=== PATIENT | female | born 1955 | race Native Hawaiian/Other Pacific Islander ===

== ENCOUNTER → 2016-10-01 | Outpatient (CLI) | payer BC ==
[2016-10-01 08:50] VITALS: BP 150/92; PULSE 79; TEMP 97.9; BMI 41.0
[2016-10-01 10:00] LABS: CH 31.8; CHCM 34.2; HCT 43.7 % (34.0-46.0); HDW 2.95; MCHC 34.2 g/dL (31.0-37.0); MCV 93.4 fL (80.0-100.0); Mean Platelet Volume 7.6; RBC 4.68 m/uL (3.80-5.40); RDW 13.1 % (11.5-15.5); WBC 5.2 k/uL (3.8-10.6)
[2016-10-01 11:10] LABS: ALT 43 U/L (9-52); AST 29 U/L (14-36); Alkaline Phosphatase 117 U/L (38-126); Anion Gap 13 mmol/L; Blood Urea Nitrogen 16 mg/dL (7-17); Calcium 9.5 mg/dL (8.4-10.2); Carbon Dioxide 23 mmol/L (22-30); Chloride 108 mmol/L (98-107); Cholesterol 155 mg/dL (<200); Glucose 100 mg/dL (74-99); HDL Cholesterol 54 mg/dL (40-60); Iron 114 ug/dL (37-170); Non-African American GFR(MDRD) >60 (>60 ml/min/1.73 sqM); Potassium 4.4 mmol/L (3.5-5.1); Sodium 144 mmol/L (137-145); Total Bilirubin 0.7 mg/dL (0.2-1.3); Triglycerides 228 mg/dL (<150)
[2016-10-01 11:19] LABS: % Iron Saturation 32.9 % (20-50); Total Iron Binding Capacity 346 ug/dL (265-497)
--- NOTE | 2016-10-01 12:16 | P.GSHP ---
History of Present Illness H&P Date: 10/01/16 Chief Complaint: Morbid obesity BMI 41.1 61 years old female presents for bariatric surgery consultation. Patient had tried multiple weight loss programs and exercise regimens. She lost 25 pounds but is unable to maintain sustained weight loss. Last colonoscopy less than 10 years ago and was normal as per patient Her comorbid conditions include: 1. Benign essential hypertension- she discontinued hydrochlorothiazide because of insurance noncoverage 2. History of stage III breast cancer status post mastectomy with TRAM reconstruction in 1994, status post chemotherapy and radiation - Recent MRI normal. Follows up with Dr. Magdiel Gooden 3. Hyperlipidemia 4. GERD - takes PPIs on and off for reflux symptoms 5. Known sigmoid diverticulosis with few episodes of diverticulitis - Review of Systems Comment: Constitutional: Denies fever, weight loss or loss of appetite HEENT: No difficulty in vision or hearing. Denies dysphagia. Cardiovascular: Denies chest pain, palpitations, dizziness, shortness of breath. Respiratory: No cough or shortness of breath Gastrointestinal: She has gastroesophageal reflux disease and sigmoid diverticulosis Integumentary: No ulcers or breakdown Genitourinary: No urinary incontinence, hematuria or dysuria Neurologic: No seizures, denies weakness in upper or lower extremities Musculoskeletal: Occasional knee pain. Psychiatry: No history of depression, no suicidal ideation, no anxiety or psychosis ROS unobtainable: Reports: due to endotracheal tube Past Medical History Past Medical History: Cancer, Hyperlipidemia, Hypertension Additional Past Medical History / Comment(s): buldging discs in back, breast cancer 1994 chemo and radiation,currently having burning sensation/feeling in stomachLEFT BREAST MASTECTOMY 95 History of Any Multi-Drug Resistant Organisms: None Reported Past Surgical History: Breast Surgery, Hysterectomy, Orthopedic Surgery Additional Past Surgical History / Comment(s): lt mastectomy,reconstruction nolan breast. Past Anesthesia/Blood Transfusion Reactions: No Reported Reaction Past Psychological History: No Psychological Hx Reported Smoking Status: Never smoker Past Alcohol Use History: Rare Past Drug Use History: None Reported - Past Family History Mother Family Medical History: Cancer Additional Family Medical History / Comment(s): breast Father Family Medical History: Cancer Additional Family Medical History / Comment(s): skin and liver Medications and Allergies Home Medications Medication Instructions Recorded Confirmed Type Levothyroxine Sodium [Synthroid] 75 mcg PO QAM 11/17/13 10/01/16 History Multivitamins, Thera [Multivitamin] 1 each PO DAILY 11/17/13 10/01/16 History Atorvastatin [Lipitor] 20 mg PO DAILY 09/19/14 10/01/16 History Allergies Allergy/AdvReac Type Severity Reaction Status Date / Time No Known Allergies Allergy Verified 10/01/16 08:50 Surgical - Exam Vital Signs Temp Pulse BP 97.9 F 79 150/92 10/01/16 08:46 10/01/16 08:46 10/01/16 08:46 HEENT: No pallor, no icterus, no thyroid enlargement, no cervical lymphadenopathy. Chest: Bilateral equal breath sounds present. No wheezes, no crackles. Cardiovascular: Regular rate and rhythm. Abdomen: Soft, nontender, nondistended. Transverse lower abdominal incision insistent with TRAM reconstruction Integumentary: No active ulcers or discharge. Neurologic: Cranial nerves II-XII intact. Strength upper and lower extremities 5/5. No focal neurologic deficits. Gait is normal. Psychiatric: No anxiety or psychosis. No suicidal thoughts. . Results - Labs 10/01/16 09:29 Assessment and Plan (1) Morbid obesity with BMI of 40.0-44.9, adult Status: Acute (2) Morbid obesity due to excess calories Status: Acute (3) Hypertension Status: Acute (4) Hyperlipidemia Status: Acute Plan: 1. A detailed discussion was held about the risks, benefits and potential complications of bariatric surgery. I have concerns about her TRAM flap and need to review prior operative reports 2. Referral given to Sai Bingham for exercise and weight loss program.She was recommended to drink protein shakes for snacks. I discussed about reducing the portion size, limiting refined carbohydrates and sugar and increase protein intake 3. Patient scheduled for esophagogastroduodenoscopy with antral biopsy 4. Baseline lab work ordered. 12-lead EKG ordered 5. Transport Coordinator's recommendations and clearance awaited 6. Psychiatrist/ psychologist's recommendations pending 7. CT scan abd/pelvis from 2013 reviewed. No rectus muscle along right side consistent with TRAM flap surgery 8. Sleep study
[2016-10-01 12:18] LABS: Vitamin B12 491 pg/mL (239-931)
== END | disposition home or self-care (01) ==
LOC: BARWHC3 08:03
PROVIDERS: ATTEND Surgery
DX: E66.01 Morbid (severe) obesity due to excess calories (principal); I10 Essential (primary) hypertension; E78.5 Hyperlipidemia, unspecified; D50.8 Other iron deficiency anemias; E03.9 Hypothyroidism, unspecified; I11.9 Hypertensive heart disease without heart failure; Z68.41 Body mass index [BMI] 40.0-44.9, adult; Z79.899 Other long term (current) drug therapy
CPT/HCPCS: 36415; 80053; 80061; 82306; 82607; 82728; 82746; 83540; 83550; 84425; 84443; 85027; 99211

== ENCOUNTER 2016-10-08 11:36 | Day surgery (SDC) | payer BC ==
[2016-10-02 14:18] VITALS: BMI 41.0
[~2016-10-08 11:36] MED LIST: LACTATED RINGERS 1,000 ML IV SCH; LIDOCAINE 1% 20 ML VIAL (10MG/ML) FOR IV START INTRADERMA PRN
[2016-10-08 12:18] VITALS: RESP 16; TEMP 97
[2016-10-08] MEDS ORDERED: GLYCOPYRROLATE 0.2 MG/ML 2 ML VIAL ONE (12:18)
[2016-10-08] MEDS ORDERED: LIDOCAINE 1% INJ 10MG/ML (20 ML MDV) ONE (12:18)
[2016-10-08] MEDS ORDERED: PROPOFOL 10 MG/ML 20 ML VIAL IV ONE (12:18)
[2016-10-08] MEDS ORDERED: KETAMINE 10 MG/ML 20 ML VIAL ONE (12:18)
--- NOTE | 2016-10-08 12:33 | P.OP ---
Date of Procedure: 10/08/16 Preoperative Diagnosis: Morbid obesity BMI 41 Gastroesophageal reflux disease History of left breast cancer status post mastectomy and TRAM reconstruction Postoperative Diagnosis: Same Procedure(s) Performed: EGD with antral biopsy Anesthesia: MAC Surgeon: Urmila Beckett Pathology: other Condition: stable Disposition: PACU Indications for Procedure: 61 years old female presenting for bariatric surgery evaluation. She has history of gastroesophageal reflux disease. Informed consent obtained and patient opted to undergo EGD with possible biopsy Description of Procedure: A timeout was performed to verify the correct patient and correct procedure. Patient was on continuous vitals and pulse ox monitoring throughout the procedure. She was placed in lateral decubitus position and an oral bite block was inserted. A well-lubricated Olympus upper endoscope was passed orally. The esophagus was intubated without difficulty. The vocal cords were visualised and protected at all times. The endoscope was passed beyond the pylorus into the first and second portion of the duodenum. No normality is noted in the duodenum mucosa. Two random biopsies were taken from the gastric antrum using cold biopsy forceps. The scope was then retroflexed. No hiatal hernia. No mass, active ulcer or bleeding stigmata noted within the gastric lumen. The GE junction is measured at 36 cm from the incisors . No evidence of reflux esophagitis. The endoscope was gradually withdrawn. No abnormality identified in the esophagus. Patient tolerated the procedure well and was taken to post anesthesia care unit in stable condition. FINAL DIAGNOSIS: 1. Normal EGD SPECIMEN: Antral biopsy Final Pathologic Diagnosis GASTRIC ANTRUM, BIOPSY: MINIMAL CHRONIC GASTRITIS. IMMUNOPEROXIDASE STAIN NEGATIVE FOR HELICOBACTER PYLORI ORGANISMS (CONTROLS APPROPRIATE).
[2016-10-08 13:15] VITALS: BP 142/82; PULSE 77
== END 2016-10-08 13:27 | disposition home or self-care (01) ==
LOC: ORWHC2ENDO 11:36
PROVIDERS: ATTEND Surgery
DX: K21.9 Gastro-esophageal reflux disease without esophagitis (principal); K29.50 Unspecified chronic gastritis without bleeding; Z01.818 Encounter for other preprocedural examination; E66.01 Morbid (severe) obesity due to excess calories; Z68.41 Body mass index [BMI] 40.0-44.9, adult; Z85.3 Personal history of malignant neoplasm of breast; I10 Essential (primary) hypertension; E78.5 Hyperlipidemia, unspecified; E07.9 Disorder of thyroid, unspecified; Z79.899 Other long term (current) drug therapy
CPT/HCPCS: 88305; 88342; 43239; J2001; J2704

== ENCOUNTER → 2016-12-05 | Outpatient (CLI) | payer BC ==
--- NOTE | 2016-12-05 11:10 | MM ---
Reason for exam: additional evaluation requested from prior study. Last mammogram was performed 1 year and 1 month ago. History: Patient is postmenopausal, has history of breast cancer at age 40, and history of other cancer. Family history of breast cancer in mother at age 63 and breast cancer in paternal aunt at age 63. Benign right mammotome panel of the right breast, March 06, 2010. Right US Cyst Aspiration of the right breast, January 08, 2005. Reduction of the right breast, 2002. TRAM Reconstruction of the left breast, 2001. Reduction of the right breast, 1995. Mastectomy of the left breast, 1995. Chemotherapy. Radiation therapy of the left breast. Took hormonal contraceptives for 15 years. Took estrogen for 1 year beginning at age 54. Physical Findings: Nurse did not find any significant physical abnormalities on exam. MG 3D Diag Mammo W/Cad RT CC, MLO, and XCCL view(s) were taken of the right breast. Prior study comparison: November 12, 2015, right breast MG 3d diag mammo w/cad RT. May 11, 2015, right breast MG 3d diag mammo w/cad RT. There are scattered fibroglandular densities. No significant new findings when compared with previous films. These results were verbally communicated with the patient and result sheet given to the patient on 12/05/16. ASSESSMENT: Benign, BI-RAD 2 RECOMMENDATION: Follow-up diagnostic mammogram of the right breast in 1 year.
== END | disposition home or self-care (01) ==
LOC: RADMAMWWP 09:48
PROVIDERS: ATTEND Family Medicine
DX: Z08 Encounter for follow-up examination after completed treatment for malignant neoplasm (principal); Z85.3 Personal history of malignant neoplasm of breast
CPT/HCPCS: G0206; G0279

== ENCOUNTER → 2017-02-05 | Outpatient (CLI) | payer BC ==
--- NOTE | 2017-02-05 15:49 | BD ---
EXAMINATION TYPE: MG DEXA axial skeleton. DATE OF EXAM: 02/05/2017 COMPARISON: 01.10.2015 CLINICAL HISTORY: Z78.0 MENOPAUSAL STATE Height: 60 Weight: 203 FRAX RISK QUESTIONS: Alcohol (3 or more units per day): NO Family History (Parent hip fracture): NONE KNOWN Glucocorticoids (More than 3mos): NO (Ex: prednisone, prednisolone, methylprednisolone, dexamethasone, and hydrocortisone). History of Fracture in Adulthood: NO Secondary Osteoporosis: NO 1. Type 1 Diabetes: NO 2. Hyperthyroidism: NO 3. Menopause before 45: NO 4. Malnutrition: NO 5. Chronic liver disease: NO Rheumatoid Arthritis: NO Current Tobacco Use: NO RISK FACTORS HISTORY OF: Family History of Osteoporosis: NONE KNOWN Active: YES Diet low in dairy products/other sources of calcium: NO Postmenopausal woman: 55 Lost more than 2 inches in height since high school: NO Hyperparathyroidism: NO Adrenal Insufficiency: NO MEDICATIONS: Thyroid Medications: YES, SYNTHROID, GENARIC How Lon+ YRS Additional Medications: BP MEDS, XANAX, HX OF CHEMO AND RADIATION, VIT D, STATIN FOR CHOLESTEROL, NEX IUM BUT STOPPED 2 WKS AGO, Additional History: BREAST CANCER, LT ....1997 EXAM MEASUREMENTS: Bone mineral densitometry was performed using the [employer] System. Bone mineral density as measured about the Lumbar spine is: ----- L1-L4(G/cm2): 1.229 T Score Values are as follows: ----- L1: -0.4 ----- L2: 0.8 ----- L3: 0.4 ----- L4: 0.5 ----- L1-L4: 0.4 Bone mineral density has: Decreased -2.5% since study of: 01.10.2015 Bone mineral density about the R hip (g/cm2): 1.039 Bone mineral density about the L hip (g/cm2): 1.110 T Score values are as follows: -----R Neck: -1.0 -----L Neck: -0.6 -----R Total: 0.2 -----L Total: 0.8 Bone mineral density has: Increased 0.1% since study of: 01.10.2015 FRAX%'S: THERE IS A 6.9% CHANCE FOR A MAJOR OSTEOPOROTIC FX AND A 0.4% FOR HIP FX....PROBABILITY IN 10 YRS TIME IMPRESSION: Normal (Values between +1 and -1 indicate normal bone mass). Consider repeating this study in 5 year s or sooner if there is some new clinical indication FOR BOTH OF HER HIPS AND LUMBAR SPINE. NOTE: T-SCORE=SD OF THE YOUNG ADULT MEAN.
== END | disposition home or self-care (01) ==
LOC: RADBDWWP 14:10
PROVIDERS: ATTEND Family Medicine
DX: Z12.31 Encounter for screening mammogram for malignant neoplasm of breast (principal); Z78.0 Asymptomatic menopausal state
CPT/HCPCS: 77080

== ENCOUNTER → 2017-05-08 | Outpatient (CLI) | payer BC ==
--- NOTE | 2017-05-08 17:08 | CT ---
EXAMINATION TYPE: CT abdomen pelvis w con DATE OF EXAM: 05/08/2017 COMPARISON: 11/18/2013 HISTORY: Abdominal pain CT DLP: 1445.6 mGycm Automated exposure control for dose reduction was used. TECHNIQUE: Helical acquisition of images was performed from the lung bases through the pelvis. CONTRAST: Performed with Oral Contrast and with IV Contrast, patient injected with 100 mL of Omnipaque 300. FINDINGS: Lung bases are clear. There is no pleural effusion. Liver spleen pancreas gallbladder appear normal. Bile ducts are not dilated. There is no adrenal mass. Kidneys show satisfactory contrast opacification. There is no hydronephrosi s. There is no retroperitoneal adenopathy. There is no ascites. Appendix appears normal. There are mu ltiple diverticula in the sigmoid colon. Bladder distends smoothly. There is no sign of a pelvic mass . I see no intestinal wall thickening. There are no dilated loops. I see no bony destructive process. IMPRESSION: MILD SIGMOID DIVERTICULOSIS. NORMAL APPENDIX. NO SIGN OF ACUTE ABDOMEN AND PELVIS. THERE IS CLEARING OF THE INFLAMMATORY CHANGES IN THE SIGMOID COLON COMPARED TO OLD EXAM.
== END | disposition home or self-care (01) ==
LOC: RADCTMAIN 16:17
PROVIDERS: ATTEND Surgery
DX: K57.30 Diverticulosis of large intestine without perforation or abscess without bleeding (principal)
CPT/HCPCS: 74177; Q9967

== ENCOUNTER 2017-09-15 06:45 | Day surgery (SDC) | payer BC ==
[2017-09-10 15:09] VITALS: BMI 38.5
[2017-09-15 07:19] VITALS: TEMP 96.1
[2017-09-15] MEDS ORDERED: LACTATED RINGERS 1,000 ML IV ONE (07:26)
[2017-09-15] MEDS ORDERED: LIDOCAINE 1% INJ 10MG/ML (20 ML MDV) ONE (07:38)
[2017-09-15] MEDS ORDERED: PROPOFOL 10 MG/ML 20 ML VIAL IV ONE (07:38)
--- NOTE | 2017-09-15 08:22 | P.PCN ---
Date of Procedure: 09/15/17 Preoperative Diagnosis: Change in caliber of stool, blood-tinged stool Postoperative Diagnosis: Diverticuli, internal hemorrhoids, polyp at splenic flexure, polyp in right colon distal near hepatic flexure Procedure(s) Performed: Colonoscopy, polypectomy 2 Anesthesia: MAC Surgeon: Amrita Moser Estimated Blood Loss (ml): 0 IV fluids (ml): 400 Pathology: other (2 polyps 1 from the splenic flexure area and one from the distal right colon hepatic flexure area) Condition: stable Disposition: PACU Indications for Procedure: Change in stool caliber and blood-tinged stool Operative Findings: Diverticuli, polyps 2 right colon and splenic flexure area internal hemorrhoids Description of Procedure: Patient was taken to the endoscopy suite and placed in the left lateral decubitus position. Sedation was administered. Rectal exam was performed. Patient was noted to have good sphincter tone no masses. Colonoscope was passed through the anus into the rectum. Was passed through the sigmoid colon up to splenic flexure transverse colon hepatic flexure right colon down to the area of the cecum. This patient circumferential observation mucosa did not reveal any lesions of concern in the cecum. As the scope was withdrawn small polypoid lesion was noted in the right colon which was removed with snare polypectomy and retrieved. Upon introduction of the scope a small polyp had been noted at this area near the splenic flexure and this was likewise removed with snare polypectomy and retrieved. The scope continued to be withdrawn no lesions of concern were otherwise noted in the transverse colon. The scope was brought down into the left colon were no lesions of concern were identified. Patient was noted to have scattered diverticuli. Scope was brought down to the rectum where it was retroflexed internal hemorrhoids identified. We took approximately 8 minutes to withdraw the scope from the area of the cecum to the rectum. Impression/plan: 1. Polyps as noted 2. Internal hemorrhoids 3. Diverticuli Plan: 1. Await results of polypectomy this likely repeat scope in 2-3 years 2. Conservative management of diverticuli and hemorrhoids
--- NOTE | 2017-09-15 08:24 | P.DS ---
Providers Attending physician: Amrita Moser Primary care physician: Luther Veloz Plan - Discharge Summary New Discharge Prescriptions: No Action Atorvastatin [Lipitor] 40 mg PO QAM Hydrochlorothiazide 25 mg PO QAM Esomeprazole Magnesium [NexIUM 24Hr] 22.3 mg PO HS ALPRAZolam [Xanax] 0.5 mg PO DAILY PRN PRN Reason: Anxiety Levothyroxine Sodium [Synthroid] 100 mcg PO DAILY amLODIPine [Norvasc] 5 mg PO DAILY Cholecalciferol (Vitamin D3) [Vitamin D3] 2,000 unit PO DAILY Pantoprazole Sodium Discharge Medication List Atorvastatin [Lipitor] 40 mg PO QAM 09/19/14 [History] Esomeprazole Magnesium [NexIUM 24Hr] 22.3 mg PO HS 10/02/16 [History] Hydrochlorothiazide 25 mg PO QAM 10/02/16 [History] ALPRAZolam [Xanax] 0.5 mg PO DAILY PRN 06/12/17 [History] Cholecalciferol (Vitamin D3) [Vitamin D3] 2,000 unit PO DAILY 09/10/17 [History] Levothyroxine Sodium [Synthroid] 100 mcg PO DAILY 09/10/17 [History] amLODIPine [Norvasc] 5 mg PO DAILY 09/10/17 [History] Pantoprazole Sodium 09/15/17 [History] Follow up Appointment(s)/Referral(s): Amrita Moser MD [STAFF PHYSICIAN] - As Needed Activity/Diet/Wound Care/Special Instructions: Call office Thursday for results of polypectomy pathology Do not drive today Call if any concerns Diverticular diet Discharge Disposition: HOME SELF-CARE
[2017-09-15 08:47] VITALS: BP 118/57; PULSE 63; RESP 18
== END 2017-09-15 08:54 | disposition home or self-care (01) ==
LOC: ORWHC2ENDO 06:45
PROVIDERS: ATTEND Surgery
DX: D12.3 Benign neoplasm of transverse colon (principal); F41.9 Anxiety disorder, unspecified; K63.5 Polyp of colon; K64.8 Other hemorrhoids; K57.30 Diverticulosis of large intestine without perforation or abscess without bleeding; I10 Essential (primary) hypertension; K21.9 Gastro-esophageal reflux disease without esophagitis; Z79.899 Other long term (current) drug therapy; Z90.710 Acquired absence of both cervix and uterus; Z90.10 Acquired absence of unspecified breast and nipple; Z85.3 Personal history of malignant neoplasm of breast
CPT/HCPCS: 88305; 45385; J2001; J2704

== ENCOUNTER → 2017-12-16 | Outpatient (CLI) | payer BC ==
--- NOTE | 2017-12-17 08:50 | MM ---
Reason for exam: additional evaluation requested from prior study. Last mammogram was performed 1 year ago. History: Patient is postmenopausal, has history of breast cancer at age 40, and history of other cancer. Family history of breast cancer in mother at age 63 and breast cancer in paternal aunt at age 63. Benign right mammotome panel of the right breast, March 06, 2010. Right US Cyst Aspiration of the right breast, January 08, 2005. Reduction of the right breast, 2002. TRAM Reconstruction of the left breast, 2001. Reduction of the right breast, 1995. Mastectomy of the left breast, 1995. Chemotherapy. Radiation therapy of the left breast. Took hormonal contraceptives for 15 years. Took estrogen for 1 year beginning at age 54. Physical Findings: Nurse did not find any significant physical abnormalities on exam. MG 3D Diag Mammo W/Cad RT CC and MLO view(s) were taken of the right breast. Prior study comparison: December 05, 2016, right breast MG 3d diag mammo w/cad RT. November 12, 2015, right breast MG 3d diag mammo w/cad RT. There are scattered fibroglandular densities. Finding: There is a 7 mm equal density (isodense), circumscribed round mass located 3 cm from the nipple in the upper outer quadrant of the right breast. Previous mammotome biopsy in the right breast. New finding since December 05, 2016. These results were verbally communicated with the patient and result sheet given to the patient on 12/16/17. ASSESSMENT: Incomplete: need additional imaging evaluation, BI-RAD 0 RECOMMENDATION: Ultrasound of the right breast.
--- NOTE | 2017-12-17 08:52 | USB ---
Reason for exam: additional evaluation requested from abnormal screening. History: Patient is postmenopausal, has history of breast cancer at age 40, and history of other cancer. Family history of breast cancer in mother at age 63 and breast cancer in paternal aunt at age 63. Benign right mammotome panel of the right breast, March 06, 2010. Right US Cyst Aspiration of the right breast, January 08, 2005. Reduction of the right breast, 2002. TRAM Reconstruction of the left breast, 2001. Reduction of the right breast, 1995. Mastectomy of the left breast, 1995. Chemotherapy. Radiation therapy of the left breast. Took hormonal contraceptives for 15 years. Took estrogen for 1 year beginning at age 54. US Breast Limited RT Right limited breast ultrasound including focal area of concern, retroareolar and axilla demonstrates a 0.8 x 0.6 x 0.7cm taller than wide, solid lesion with calcification at 11 o'clock. These results were verbally communicated with the patient and result sheet given to the patient on 12/16/17. ASSESSMENT: Suspicious, BI-RAD 4 RECOMMENDATION: Ultrasound core biopsy of the right breast. Called Dr. Veloz with mammographic findings and has scheduled an appointment for the patient for 12/24/17 at 12:[address] Moser. Biopsy scheduled for 12/25/17 at 11:30. PRELIMINARY REPORT CALLED AND FAXED TO DR. MOSER ON 12/17/17.
== END | disposition home or self-care (01) ==
LOC: RADMAMWWP 14:16
PROVIDERS: ATTEND Family Medicine
DX: Z09 Encounter for follow-up examination after completed treatment for conditions other than malignant neoplasm (principal); Z85.3 Personal history of malignant neoplasm of breast
CPT/HCPCS: 77061; 77065

== ENCOUNTER → 2017-12-24 | Outpatient (CLI) | payer BC ==
[2017-12-24 12:26] VITALS: BP 115/77; PULSE 68; TEMP 97.7; BMI 34.9
--- NOTE | 2017-12-24 13:57 | P.GSHP ---
History of Present Illness H&P Date: 12/24/17 Chief Complaint: right breast abnormal mammogram The patient is a 62-year-old female who is status post 23 years ago left mastectomy and reconstruction with a TRAM flap. This surgery was done for a left breast cancer after which she had radiation and chemotherapy. The patient has had no genetic testing. The patient also had a reduction mammoplasty on the right side. She has not felt anything specific in the right breast however when the ultrasound was done she did note that she could feel a sensation of fullness where the ultrasound wand passed over the area of concern. The patient did have a routine right breast mammogram on 12/16/2017 which showed a 7 mm circumscribed lesion 3 cm from the nipple in the upper quadrant of the right breast and ultrasound was then performed which confirmed a 0.7 cm taller than wide solid lesion with calcifications at 11:00. The patient has no nipple discharge or changes. Family history: 1. Patient's mother with breast cancer at around 16 2. Paternal aunt with breast cancer 3. Patient left breast cancer at 39 4. Precancerous cells at the cervix for which patient underwent a hysterectomy Not remove her ovaries 5. Father of skin and liver cancer 6. Maternal grandfather stomach cancer menarche: 11 : 3 breast fed; first one, first at age 20 menopause: 52 BCP: 8 years hormones: estrogen cream past surgical history 1. breast as above 2. hysterectomy 3. Right knee surgery for torn meniscus medical history: 1. obera gastric balloon, patient has had it for 7 weeks she has lost 18 pounds - Constitutional Constitutional: Reports as per HPI, Reports weight loss - EENT Eyes: denies blurred vision, denies pain Ears: deny: decreased hearing, tinnitus Ears, nose, mouth and throat: Denies headache, Denies sore throat - Breasts Breasts: bilateral: as per HPI - Cardiovascular Cardiovascular: Reports high blood pressure, Denies chest pain, Denies shortness of breath - Respiratory Respiratory: Denies cough, Denies 7 - Gastrointestinal Gastrointestinal: Denies abdominal pain, Denies diarrhea, Denies nausea, Denies vomiting - Genitourinary (Female) Genitourinary: Denies dysuria, Denies hematuria - Musculoskeletal Musculoskeletal: Denies myalgias - Integumentary Integumentary: Denies pruritus, Denies rash - Psychiatric Psychiatric: Reports anxiety, Denies depression - Endocrine Endocrine: Reports weight change, Denies fatigue - Hematologic/Lymphatic Comment: none - Allergic/Immunologic Allergic/Immunologic: Reports seasonal allergies Past Medical History Past Medical History: Cancer, GERD/Reflux, Hyperlipidemia, Hypertension, Thyroid Disorder Additional Past Medical History / Comment(s): left breast cancer 1994 tx -chemo and radiation, hiatal hernia, diverticulitis, History of Any Multi-Drug Resistant Organisms: None Reported Past Surgical History: Breast Surgery, Hysterectomy, Orthopedic Surgery Additional Past Surgical History / Comment(s): lt mastectomy,reconstruction nolan breast. Past Anesthesia/Blood Transfusion Reactions: No Reported Reaction Smoking Status: Never smoker - Past Family History Mother Family Medical History: Cancer Additional Family Medical History / Comment(s): breast Father Family Medical History: Cancer Additional Family Medical History / Comment(s): skin and liver Medications and Allergies Home Medications Medication Instructions Recorded Confirmed Type Hydrochlorothiazide 25 mg PO QAM 10/02/16 12/18/17 History ALPRAZolam [Xanax] 0.5 mg PO DAILY PRN 06/12/17 12/18/17 History Levothyroxine Sodium [Synthroid] 100 mcg PO DAILY 09/10/17 12/18/17 History amLODIPine [Norvasc] 5 mg PO DAILY 09/10/17 12/18/17 History Atorvastatin [Lipitor] 20 mg PO DAILY 12/18/17 12/18/17 History Calcium/Magnesium/Zinc 1 tab PO DAILY 12/18/17 12/18/17 History [Gnpwiqk-Yvrsytdja-Lnzo Tablet] Cholecalciferol (Vitamin D3) 2,000 unit PO DAILY 12/18/17 12/18/17 History [Vitamin D3] Omeprazole [PriLOSEC] 40 mg PO DAILY 12/18/17 12/18/17 History Allergies Allergy/AdvReac Type Severity Reaction Status Date / Time No Known Allergies Allergy Verified 12/18/17 14:25 Surgical - Exam - General obese - Eyes normal ocular movement, no icteric - ENT no hearing loss, no congestion - Neck no masses, trachea midline - Respiratory normal respiratory effort, clear to auscultation - Cardiovascular Rhythm: regular Heart Sounds: normal: S1, S2 - Abdomen Abdomen: soft, non tender, no guarding, no rigid, no rebound - Integumentary Breast: right breast: Surgical incisions well-healed status post reduction mammoplasty No dominant masses or nodules of concern and multiple positional exam Right axilla: No adenopathy of concern Left breast: Patient is status post TRAM flap reconstruction no evidence of recurrence and the skin Left axilla: No adenopathy of concern - Neurologic no disoriented, no combative - Musculoskeletal normal gait, normal posture - Psychiatric oriented to time, oriented to person, oriented to place, speech is normal, memory intact Results Right breast mammogram and ultrasound reviewed with radiologist Assessment and Plan Assessment: Impression/plan: 1. Patient status post left breast mastectomy and TRAM flap reconstruction 23 years ago 2. Abnormal right breast mammogram and ultrasound 3. Gastric balloon placed for weight reduction Plan: 1. Right breast core biopsy 2. Follow-up after right breast core biopsy 3. Consider genetic testing Cc: Dr. Luther Veloz
== END | disposition home or self-care (01) ==
LOC: WWCWWP 11:55
PROVIDERS: ATTEND Surgery
DX: Z01.419 Encounter for gynecological examination (general) (routine) without abnormal findings (principal); E78.5 Hyperlipidemia, unspecified; I10 Essential (primary) hypertension; K21.9 Gastro-esophageal reflux disease without esophagitis; K44.9 Diaphragmatic hernia without obstruction or gangrene; Z80.3 Family history of malignant neoplasm of breast; Z85.3 Personal history of malignant neoplasm of breast; Z90.12 Acquired absence of left breast and nipple; Z92.21 Personal history of antineoplastic chemotherapy; Z92.3 Personal history of irradiation; Z98.890 Other specified postprocedural states

== ENCOUNTER → 2017-12-25 | Day surgery (SDC) | payer BC ==
[2017-12-25 10:47] VITALS: RESP 16; BMI 35.1
[2017-12-25 12:43] VITALS: BP 116/70; PULSE 62; TEMP 98.5
--- NOTE | 2017-12-25 14:58 | USB ---
EXAMINATION TYPE: US biopsy breast VAD RT, Postbiopsy MG diagnostic mammo RT wo CAD DATE OF EXAM: 12/25/2017 CLINICAL HISTORY: 62-year-old female R92.8 Abnormal Mammogram. TECHNIQUE: Ultrasound guided core biopsy of right breast. COMPARISON: 12/16/2017 FINDINGS: The procedure of ultrasound guided core biopsy was explained to the patient. Benefits, alternatives, and risks were discussed. An informed consent was then obtained. The 8 x 6 x 6 mm mixed lesion at the 11:00 position was targeted for biopsy. The patient was placed in supine positioning for imaging and for the procedure. The overlying skin was prepped and draped in usual sterile fashion. Lidocaine buffered with bicarbonate was used as anesthetic into the skin and subcutaneous tissue up to area of concern in the 11:00 right breast. Under ultrasound guidance, a 13-gauge vacuum-assisted Mammotome Elite biopsy gun device was used to obtain 6 core samples. Following this, a ribbon clip was left in lesion. The patient tolerated the procedure well without any immediate complication. The patient was kept in the radiology department for short stay after the procedure and then discharged home in stable condition. Postbiopsy mammogram shows the ribbon clip at the site of mammographic abnormality. IMPRESSION: Successful, uncomplicated ultrasound guided core biopsy of area of concern in the 11:00 right breast which corresponds to the mammographic finding, full pathology results to follow. Pathology Results: Malignant BREAST, RIGHT, ULTRASOUND GUIDED CORE BIOPSY: Invasive well differentiated ductal carcinoma (Grade 1). See Surgical Pathology Cancer Case Summary. Recommendation Surgical consult of the right breast. JASON
== END | disposition home or self-care (01) ==
LOC: RADUSWWP 10:28
PROVIDERS: ATTEND Surgery
DX: C50.911 Malignant neoplasm of unspecified site of right female breast (principal)
CPT/HCPCS: 19083; 88305; 77065; A4648; J2001

== ENCOUNTER → 2017-12-31 | Outpatient (CLI) | payer BC ==
[2017-12-31 11:38] VITALS: BP 127/84; PULSE 64; BMI 35.1
--- NOTE | 2017-12-31 12:24 | P.PN ---
Progress Note - Text Progress Note Date: 12/31/17 Patient presents for results of right breast ultrasound core biopsy. Pathology revealed a grade 1 invasive ductal carcinoma. The lesion is less than 1 cm on radiographic studies. We have discussed the surgical options including mastectomy, mastectomy with reconstruction, or lumpectomy with radiation treatment to the breast. The patient wishes lumpectomy and understands she will require radiation therapy. The patient is status post left breast cancer treated with mastectomy approximately 20 years ago; we have discussed BRCA1 testing. The patient has opted for lumpectomy despite BRCA1 results and we will thus proceed with the surgery. I discussed her case with Dr. Lopez and the BRCA1 testing can be done postprocedure the results of which which may change our surveillance. The risks and benefits of the procedure as well as sentinel node biopsy and possible axillary node dissection were discussed in detail with the patient and her daughter. The patient understands and wishes to proceed. Additionally the patient has a gastric balloon in place for weight loss we have talked to anesthesia regarding this and it is not felt that the balloon needs to be removed prior to surgery. Physical exam: Examination of the right breast reveals no evidence of infection No evidence of ecchymosis right breast No evidence of hematoma right breast Impression/plan: 1. Recently diagnosed right breast cancer 2. Prior history of left breast cancer, status post mastectomy and TRAM flap 3. Gastric balloon in place Plan: 1. Right breast lumpectomy with sentinel node biopsy possible axillary node dissection 2. BRCA1 testing postprocedure 3. Patient and daughter understand risks and benefits and wished to proceed 4. I discussed the gastric balloon with anesthesia and at this time they do not feel there is any necessary pre-procedure manipulation of the balloon needed cc: DR. Luther Veloz
== END | disposition home or self-care (01) ==
LOC: WWCWWP 10:56
PROVIDERS: ATTEND Surgery
DX: C50.911 Malignant neoplasm of unspecified site of right female breast (principal); Z53.9 Procedure and treatment not carried out, unspecified reason; Z85.3 Personal history of malignant neoplasm of breast

== ENCOUNTER 2018-01-12 07:58 | Day surgery (SDC) | payer BC ==
[2018-01-06 16:13] VITALS: BMI 35.1
[~2018-01-12 07:58] MED LIST changes: +DEXAMETHASONE SOD PHOSPHATE 10 MG/ML 1 ML VIAL IV ONE; +HEPARIN SODIUM,PORCINE 5,000 UNIT/ML 1 ML VIAL SQ ONE; +MIDAZOLAM 2 MG/2 ML VIAL IV PRN; +ONDANSETRON 4 MG/2 ML VIAL IVP ONE; +Pre Op ABX Message 1 EACH MISC MISCELLANE ONE; +fentaNYL (PF) 50 MCG/ML 2 ML AMP IV PRN
[2018-01-12] MEDS ORDERED: LIDOCAINE 1% 20 ML VIAL (10MG/ML) FOR IV START INTRADERMA ONE (08:43)
[2018-01-12 08:55] LABS: Basophils % (A) 0 %; Eosinophils # (A) 0.1 k/uL (0-0.7); Eosinophils % (A) 4 %; HCT 40.5 % (34.0-46.0); HGB 13.9 gm/dL (11.4-16.0); Lymphocytes # (A) 1.3 k/uL (1.0-4.8); Lymphocytes % (A) 36 %; MCH 31.7 pg (25.0-35.0); MCHC 34.4 g/dL (31.0-37.0); MCV 92.3 fL (80.0-100.0); Mean Platelet Volume 9.7; Monocytes # (A) 0.2 k/uL (0-1.0); Monocytes % (A) 6 %; Neutrophils # (A) 1.9 k/uL (1.3-7.7); Neutrophils % (A) 52 %; Platelet Count 141 k/uL (150-450); RBC 4.39 m/uL (3.80-5.40); RDW 14.4 % (11.5-15.5); WBC 3.7 k/uL (3.8-10.6)
[2018-01-12 09:11] LABS: Potassium 3.9 mmol/L (3.5-5.1)
[2018-01-12] MEDS ORDERED: HEPARIN SODIUM,PORCINE 5,000 UNIT/ML 1 ML VIAL SQ ONE (09:11)
--- NOTE | 2018-01-12 09:12 | P.NAPBC ---
[facility] Queries [facility] Was patient's case review presented at [facility] tumor board? If no, comment.: Yes Was patient's pathology reviewed at [facility]? If no, comment.: Yes Was breast conservation surgery offered? If no, comment.: Yes Was sentinel node biopsy offered? If no, comment.: Yes Was diagnosis confirmed by percutaneous core biopsy? If no, comment.: Yes If mastectomy patient, was a preop referral to a reconstructive surgeon offered? : Yes (patient opted for lumpectomy)
[2018-01-12] MEDS ORDERED: SODIUM BICARB 4% 5 ML VIAL (0.48 MEQ/ML) MISCELLANE ONE (09:30)
[2018-01-12] MEDS ORDERED: LIDOCAINE 1% INJ 10MG/ML (20 ML MDV) SQ ONE ×3 (09:30→13:10)
[2018-01-12] MEDS ORDERED: LIDOCAINE 1%-EPI 1:100,000 20 ML VIAL SQ ONE (09:35)
--- NOTE | 2018-01-12 09:59 | NM ---
EXAMINATION TYPE: NM sentinel node injection DATE OF EXAM: 01/12/2018 COMPARISON: NONE HISTORY: Biopsy-proven right breast cancer December 25, 2017 TECHNIQUE AND FINDINGS: The procedure of sentinel lymph node injection was explained to the patient. The benefits, alternatives, and risks were discussed. An informed consent was then obtained. Overlying skin is cleaned with sterile alcohol. Following this, 517 uCi Tc99m Tilmanocept was inject ed into the upper outer quadrant surrounding the right nipple intradermally. The patient tolerated the procedure well without any immediate complication. The patient was kept in the radiology department for short stay after the procedure and then taken to surgery for surgical p rocedure what is presumed intraoperative gamma probe will be used for sentinel lymph node detection. IMPRESSION: Right breast radiotracer injection for sentinel node localization as above.
[2018-01-12] MEDS ORDERED: PROPOFOL 10 MG/ML 20 ML VIAL IV ONE (10:45)
[2018-01-12] MEDS ORDERED: LIDOCAINE 1% INJ 10MG/ML (20 ML MDV) ONE (10:45)
[2018-01-12] MEDS ORDERED: HYDROmorphone (PF) 1 MG/ML ONE (10:45)
[2018-01-12] MEDS ORDERED: MIDAZOLAM 2 MG/2 ML VIAL ONE (10:45)
[2018-01-12] MEDS ORDERED: SUCCINYLCHOLINE CHLORIDE 100 MG/5 ML SYR IV ONE (10:45)
[2018-01-12] MEDS ORDERED: fentaNYL (PF) 50 MCG/ML 2 ML AMP ONE (10:45)
[2018-01-12] MEDS ORDERED: LACTATED RINGERS 1,000 ML IV ONE ×2 (12:00)
--- NOTE | 2018-01-12 13:06 | MM ---
EXAMINATION TYPE: MG pre op needle loc RT, MG surgical specimen RT DATE OF EXAM: 01/12/2018 COMPARISON: Mammogram December 25, 2017 and older studies CLINICAL HISTORY: History of remote breast cancer left breast 23 years ago with mastectomy and reconstruction. History of right breast reduction 2002. Recent ultrasound-guided malignant biopsy December 25, 2017 of invasive ductal carcinoma. TECHNIQUE: Needle localization with wire placement and surgical excision of area of concern in the right breast. FINDINGS: The procedure of needle localization with wire placement and than surgical excision was explained to the patient. Benefits, alternatives, and risks were discussed. An informed consent was then obtained. Review of images shows similar length to clip via superior or lateral pathway. Lateral pathway was chosen. The overlying skin was prepped and draped in usual sterile fashion. Lidocaine buffered with bicarbonate was used as anesthetic into the skin. Lidocaine with epinephrine is used as anesthetic into the deeper tissue up to the level of area of concern. A 5 cm needle was used. It was placed via a lateral approach under mammographic guidance. Subsequent 90 degrees mammogram show the needle to be in satisfactory position relative to the targeted area. At this point, wire was placed and the needle was withdrawn. The wire was fixed to patient's skin. Images were marked for surgeon. The patient tolerated the procedure well without any immediate complication. The patient was kept in the radiology department for short stay after the procedure and then taken to surgery for surgical excision. Targeted clip and wire are identified in specimen mammogram. The patient was kept in hospital for short stay after the procedure and then discharged home in stable condition. IMPRESSION: Successful, uncomplicated needle localization with wire placement and surgical excision of targeted clip in the right breast, full pathology results to follow. Pathology Results: Malignant A. SENTINEL NODE #1, BIOPSY: Two lymph nodes negative for metastasis. CK7 and RAPHAEL immunoperoxidase stains are confirmatory (controls appropriate). B. SENTINEL NODE #2, BIOPSY: Two lymph nodes negative for metastasis. CK7 and RAPHAEL immunoperoxidase stains are confirmatory (controls appropriate). C. BREAST, RIGHT, LUMPECTOMY: Invasive moderately differentiated ductal carcinoma, margins negative for malignancy. See Surgical Pathology Cancer Case Summary. D. BREAST, RIGHT, NEW LATERAL MARGIN, EXCISION: Benign breast with fibrocystic changes. E. BREAST, RIGHT, NEW MEDIAL MARGIN, EXCISION: Benign breast with fibrocystic changes. F. BREAST, RIGHT, NEW SUPERIOR MARGIN, EXCISION: Benign breast with fibrocystic changes. G. BREAST, RIGHT, NEW INFERIOR MARGIN, EXCISION: Focal atypical lobular hyperplasia (ALH) and fibrocystic changes. Negative for malignancy. H. BREAST, RIGHT, NEW POSTERIOR MARGIN, EXCISION: Benign breast tissue with prominent adipose tissue and focal fibrosis. I. RIGHT AXILLARY CONTENTS: One lymph node negative for metastasis. Recommendation Oncologic management. MTDD
--- NOTE | 2018-01-12 13:21 | P.OP ---
Date of Procedure: 01/12/18 Preoperative Diagnosis: Right breast carcinoma Postoperative Diagnosis: Same, sentinel node biopsy 2 negative on frozen section for cancer Procedure(s) Performed: Right sentinel node biopsy right breast lumpectomy painting of specimen, margin probe evaluation of margins, new margins obtained and painted, undergo plastic closure using Biozorb Implants: biozorb Anesthesia: GETA Surgeon: Amrita Moser Estimated Blood Loss (ml): 10 IV fluids (ml): 750 Pathology: other ([place] lymph nodes, breast tissue) Condition: stable Disposition: PACU Indications for Procedure: Biopsy-proven carcinoma right breast Operative Findings: Fibrocystic breast changes and scar tissue Description of Procedure: The patient is a 63-year-old female status post left mastectomy and reconstruction for carcinoma. At that time she had a right breast reduction. She was recently noted to have an abnormal mammogram and core biopsy revealed an invasive ductal carcinoma. She presents today for right breast sentinel node biopsy and right breast needle localization and lumpectomy. The patient was taken to the operating room following little crying injection for sentinel node identification and needle localization of the tumor in the right breast. Following induction of general anesthesia the right breast and axilla were prepped and draped in a sterile fashion. The axilla was approached first. Using the neoprobe to help identify the area of increased radioactivity in the axilla the area for incision was chosen. Small incision was made and carried down into the axilla where 2 sentinel nodes were identified. The first sentinel node had a 10 second count of 10,553 and the second sentinel node had a 10 second count of 3973. Both lymph nodes were removed using blunt and sharp dissection with the Bovie as well as the Harmonic scalpel. After it had been removed there were sent for frozen section evaluation. Frozen section evaluation did not reveal any evidence of cancer. The axillary radioactive background count was 32 at 10 seconds. A DWIGHT drain was placed. Deep tissues were closed using 3-0 Vicryl suture. Skin was closed using a 4-0 Monocryl. The breast was then examined and based on the location of the tumor it was determined to do the lumpectomy through a circumareolar incision. This was placed in the same incision line the anterior periareolar region as the patient' s prior reduction mammoplasty. Dissection was carried through the skin and subcutaneous tissue to the shaft of the needle. This tissue was grasped using an Allis clamp. Wide excision around the tip of the needle was able to be performed. Following this evaluation revealed that the tumor appeared to be palpable within the specimen. The margin probe was used to evaluate the specimen. All margins were negative with the exception of a positive inferior margin which was felt to be on scar tissue. However to assure wide excision was adequate addittional margins were obtained medially, laterally, inferiorly, superiorly, and posteriorly. Anteriorly dissection was adjacent to the undersurface of the skin. Posteriorly the dissection was carried down to the muscle of the chest wall. The specimen was painted for orientation. It was sent to radiology for confirmation that the area of concern had been removed was obtained. The tissue was freed such that an oncoplastic closure could be performed. This was approximately 4 cm x 3 cm in size. A 3 x 4 BioSorb was chosen. This was placed and secured using a 3-0 Vicryl suture. The deep tissues were closed with 3-0 Vicryl suture. The skin was closed with a 4-0 Monocryl. All instrument and sponge counts were correct at the end of the case. The patient tolerated the procedure in stable condition.
--- NOTE | 2018-01-12 13:35 | P.PN ---
Progress Note - Text Progress Note Date: 01/12/18 Addendum: It should be noted that the right axillary DWIGHT drain would not hold suction. It was felt that the device was leaking air at the entry site of the drain. After manipulation as it did not hold suction and there was no evidence of any bleeding or problems at this site it was determined to remove the drain. It was removed in the operating room.
[2018-01-12 13:48] VITALS: TEMP 96.9
--- NOTE | 2018-01-12 13:53 | P.DS ---
Providers Attending physician: Amrita Moser Primary care physician: Luther Veloz Plan - Discharge Summary New Discharge Prescriptions: No Action Hydrochlorothiazide 25 mg PO QAM ALPRAZolam [Xanax] 0.5 mg PO DAILY PRN PRN Reason: Anxiety Levothyroxine Sodium [Synthroid] 75 mcg PO QAM amLODIPine [Norvasc] 5 mg PO QAM Omeprazole [PriLOSEC] 20 mg PO BID Cholecalciferol (Vitamin D3) [Vitamin D3] 2,000 unit PO QAM Atorvastatin [Lipitor] 40 mg PO QAM Vitamin B-12 Injection 1 dose IM WEEKLY Discharge Medication List Hydrochlorothiazide 25 mg PO QAM 10/02/16 [History] ALPRAZolam [Xanax] 0.5 mg PO DAILY PRN 06/12/17 [History] Levothyroxine Sodium [Synthroid] 75 mcg PO QAM 09/10/17 [History] amLODIPine [Norvasc] 5 mg PO QAM 09/10/17 [History] Atorvastatin [Lipitor] 40 mg PO QAM 12/18/17 [History] Cholecalciferol (Vitamin D3) [Vitamin D3] 2,000 unit PO QAM 12/18/17 [History] Omeprazole [PriLOSEC] 20 mg PO BID 12/18/17 [History] Vitamin B-12 Injection 1 dose IM WEEKLY 01/06/18 [History] Follow up Appointment(s)/Referral(s): Amrita Moser MD [STAFF PHYSICIAN] - 1 Week Activity/Diet/Wound Care/Special Instructions: do not drive today may shower after 48 hours wear wrap at all times Discharge Disposition: HOME SELF-CARE
[2018-01-12 14:29] VITALS: RESP 18
[2018-01-12 15:22] VITALS: BP 123/78; PULSE 78
== END 2018-01-12 15:22 | disposition home or self-care (01) ==
LOC: OR 07:58
PROVIDERS: ATTEND Surgery
DX: C50.911 Malignant neoplasm of unspecified site of right female breast (principal); N62 Hypertrophy of breast; N60.11 Diffuse cystic mastopathy of right breast; Z85.3 Personal history of malignant neoplasm of breast; Z80.0 Family history of malignant neoplasm of digestive organs; I10 Essential (primary) hypertension; E78.5 Hyperlipidemia, unspecified; K57.92 Diverticulitis of intestine, part unspecified, without perforation or abscess without bleeding; K21.9 Gastro-esophageal reflux disease without esophagitis; E07.9 Disorder of thyroid, unspecified; F41.9 Anxiety disorder, unspecified; Z96.89 Presence of other specified functional implants; Z92.21 Personal history of antineoplastic chemotherapy; Z92.3 Personal history of irradiation; Z79.890 Hormone replacement therapy; Z79.899 Other long term (current) drug therapy
CPT/HCPCS: 19301; 38525; 15777; 80051; 85025; 88342; 88331; 88307; 88341; 76098; 19281; 38792; A4648; A9520; J2250; J1644; J1100; J2405; J2001; J3010; J1170; J0330; J2704

== ENCOUNTER → 2018-01-21 | Outpatient (CLI) | payer BC ==
--- NOTE | 2018-01-21 11:41 | P.PN ---
Progress Note - Text Progress Note Date: 01/21/18 The patient is a 63-year-old female status post right breast lumpectomy and sentinel node biopsy performed on . Pathology revealed a 6 mm invasive carcinoma with clear margins. At the inferior margin there was noted to be some focal atypical lobular hyperplasia negative for cancer. All lymph nodes were negative for cancer. This was noted to be ER/GA positive and HER-2 negative. The patient has no complaints at this time. Physical examination: Lungs: Clear Heart: Regular rate and rhythm Incisions: Clean and dry no evidence of infection Impression/plan: 1. Appointment with radiation oncology 2. Platelet with medical oncology 3. Appointment with a lymphedema specialist 4. Follow-up here 3 months/follow up sooner if any questions or concerns Cc: Dr. Luther Veloz
== END | disposition home or self-care (01) ==
LOC: WWCWWP 10:49
PROVIDERS: ATTEND Surgery
DX: Z53.9 Procedure and treatment not carried out, unspecified reason (principal)

== ENCOUNTER → 2018-01-29 | Outpatient (CLI) | payer BC ==
[2018-01-29 10:06] VITALS: BP 113/66; PULSE 68; TEMP 98; BMI 34.5
--- NOTE | 2018-01-29 10:09 | P.PN ---
Subjective Progress Note Date: 01/29/18 The patient is a 63-year-old white female who is status post right breast lumpectomy and sentinel node biopsy. The patient presented stating that she had noted some swelling in the right breast as well as some redness in the approximately 11 o'clock position of the right breast. She does not have any systemic fever or chills. She was seen by radiation oncology who started her on oral Keflex. Physical examination: Patient is seen in the office today and examination of the right breast reveals incision to be clean and dry and well-healed There is an area of approximately 3 x 3 cm of increased erythema over the area of the lumpectomy site. There is mild fullness at this site The concern is that there is a seroma and we would like to rule out infection of the seroma Recommendation was for attempted aspiration of seroma with culture of any fluid that would be obtained The patient understood and agreed to aspiration The area was prepped using alcohol and a 22-gauge needle was inserted into the area of the fullness Approximately 45 mL of sero/sangenous colored fluid was obtained with decrease in the erythema at the right breast site. The specimen was sent for Gram stain and culture and sensitivity Discussion was had with the patient regarding the option of continuing the oral antibiotic therapy and call if anything changed seeng her next week versus admission to the hospital with IV antibiotics and awaiting Gram stain with culture and sensitivity; at this time it is felt that it is reasonable to await the culture and sensitivity and treat the patient conservatively as an outpatient. The patient understands that if anything changes she should present to the emergency department. Otherwise we will see the patient next week. Cc: Dr. Luther Veloz
== END | disposition home or self-care (01) ==
LOC: WWCWWP 09:36
PROVIDERS: ATTEND Surgery
DX: L76.34 Postprocedural seroma of skin and subcutaneous tissue following other procedure (principal)
CPT/HCPCS: 87070; 87205

== ENCOUNTER → 2018-02-05 | Outpatient (CLI) | payer BC ==
[2018-02-05 12:50] VITALS: BMI 34.5
--- NOTE | 2018-02-05 13:15 | P.PN ---
Progress Note - Text Progress Note Date: 02/05/18 Patient presents for recheck of right lumpectomy site. At this time patient states that the redness is gone down as his swelling has as well. She had an aspiration of the area on 01-29-18 which revealed moderate PMNs and no organisms seen. The culture had no growth after 4 days. She is doing well without complaints. Physical exam: Examination of incision site reveals the area to have no erythema, there is mild fullness related to the postoperative changes and possible small seroma Impression/plan: 1. Patient doing well at this time no evidence of wound infection would continue present therapy 2. Follow-up in 3 months Cc: Dr. Luther Veloz
== END ==
LOC: WWCWWP 12:12
PROVIDERS: ATTEND Surgery
DX: Z53.9 Procedure and treatment not carried out, unspecified reason (principal)

== ENCOUNTER → 2018-05-27 | Outpatient (CLI) | payer BC ==
[2018-05-27 15:14] VITALS: BP 121/81; PULSE 82; RESP 18; TEMP 97.7; BMI 33.4
--- NOTE | 2018-05-27 15:30 | P.PN ---
Subjective Progress Note Date: 05/27/18 Principal diagnosis: Patient is status post right lumpectomy radiation therapy and is presently on Femara in December 2017 Rosey is a 63-year-old female who was diagnosed with a left breast cancer in 2002 treated with a mastectomy and TRAM flap reconstruction. That time she had adjuvant chemotherapy and chest wall radiation. The patient subsequently in November 2017 was noted to have a 7 mm circumscribed lesion 3 cm from the nipple in the upper outer quadrant area. She underwent a biopsy and this was consistent with invasive ductal carcinoma grade 1. This was ER/AZ positive HER-2/uzair negative. The patient underwent lumpectomy with sentinel node biopsy on . The pathology revealed a 6 mm focus of invasive ductal carcinoma, grade 2, negative margins, and 5 nodes were sampled all of which were negative for cancer. The patient is presently on Femara and she did undergo radiation therapy. The patient at this time has no complaints with respect to the breast. Of concern is the fact that her 41-year-old daughter was recently diagnosed with breast cancer and is in the process of chemotherapy treatment at this time. She was told she had stage III disease Objective - Vital Signs Vital signs: Vital Signs Temp 97.7 F 05/27/18 15:06 Pulse 82 05/27/18 15:06 Resp 18 05/27/18 15:06 BP 121/81 05/27/18 15:06 Pulse Ox 99 05/27/18 15:06 Intake & Output 05/26/18 05/27/18 05/27/18 18:59 06:59 18:59 Weight 80.286 kg - Exam BMI 33.4 - Constitutional General appearance: Present: obese - EENT Eyes: Present: EOMI ENT: Present: hearing grossly normal - Neck Neck: Present: normal ROM - Respiratory Respiratory: bilateral: CTA - Cardiovascular Rhythm: regular Heart sounds: normal: S1, S2 - Gastrointestinal General gastrointestinal: Present: soft - Integumentary Integumentary: Present: normal, normal turgor - Musculoskeletal Musculoskeletal: Present: gait normal - Psychiatric Psychiatric: Present: A&O x's 3, appropriate affect - Additional findings Additional findings: Breast examination: Right breast: Well-healed scar from prior lumpectomy, and reduction mammoplasty BioSorb is palpable, no other lesions of concern Right axilla: No adenopathy of concern Left breast: Patient status post mastectomy well-healed scars from TRAM flap Left axilla: No adenopathy of concern Assessment and Plan Assessment: Impression: 1. Bilateral breast cancers 2. Left breast mastectomy with TRAM flap reconstruction in 2002 3. Right breast lumpectomy with BioSorb placement no evidence of recurrent cancer at this time Plan: 1. Repeat physician exam in 4 months 2. Continue Femara CC: Dr. Luther Veloz
== END | disposition home or self-care (01) ==
LOC: WWCWWP 15:02
PROVIDERS: ATTEND Surgery
DX: Z53.9 Procedure and treatment not carried out, unspecified reason (principal)

== ENCOUNTER → 2018-09-17 | Outpatient (CLI) | payer BC ==
[2018-09-17 14:03] VITALS: BP 146/89; PULSE 72; RESP 18; TEMP 97.5; BMI 34.0
--- NOTE | 2018-09-17 14:17 | P.PN ---
Subjective Progress Note Date: 09/17/18 Principal diagnosis: Bilateral breast cancer Stage IA right breast cancer treated December 2017 Rosey is a 63-year-old female who is status post left mastectomy with TRAM flap reconstruction performed in 2002. She did receive adjuvant chemotherapy and chest wall radiation. An November 2017 a 7 mm lesion was noted in the right breast 3 cm from the nipple in the upper outer quadrant. An ultrasound was performed which revealed that this was a 0.8 cm tolerated and right solid lesion at 11:00. Core biopsy was performed which was consistent with invasive ductal carcinoma. She subsequently underwent a lumpectomy with sentinel node biopsy on . Final pathology revealed a 6 mm focus of invasive ductal carcinoma grade 2 with negative margins. 5 total lymph node nodes were sampled all of which were negative. The patient received whole breast radiation and finished this in February 2018. She tolerated this with only mild skin irritation. The patient was started on Femara, which she states she has increased UTI since on this. The most recent lesion was a stage IA [id number] ER/ME positive and HER-2 negative grade 1 invasive ductal carcinoma The patient has no complaints at this time. The patient's at 41-year-old daughter was recently diagnosed with breast cancer she was told was stage III disease and is just finishing her care chemotherapy. After this she will have radiation therapy. She did have a lumpectomy and lymph node removal. Objective - Vital Signs Vital signs: Intake & Output 09/16/18 09/17/18 09/17/18 18:59 06:59 18:59 Weight 81.647 kg - Exam BMI 34 - Constitutional General appearance: Present: cooperative, obese - EENT Eyes: Present: EOMI ENT: Present: hearing grossly normal - Neck Neck: Present: normal ROM - Respiratory Respiratory: negative: CTA - Cardiovascular Rhythm: regular Heart sounds: normal: S1, S2 - Gastrointestinal General gastrointestinal: Present: soft - Musculoskeletal Musculoskeletal: Present: gait normal - Psychiatric Psychiatric: Present: A&O x's 3, appropriate affect, intact judgment & insight - Additional findings Additional findings: breast exam: Right breast: Multi-positional exam the BioSorb is palpable however no other dominant masses or nodules are noted, fibrocystic changes Well-healed scars from prior reduction mammoplasty Right axilla: Well-healed scar from sentinel node biopsy no adenopathy of concern Left chest wall: Patient is had a TRAM flap reconstruction there is no evidence of any recurrent cancer Left axilla: No adenopathy of concern Assessment and Plan Assessment: Impression: 1. History of bilateral breast cancers 2. Left mastectomy with TRAM flap reconstruction in 2002, patient status post chemotherapy and radiation therapy to the left chest wall 3. Right breast lumpectomy with BioSorb placement no evident of recurrent cancer at this time patient status post radiation therapy and patient is on Femara Plan: 1. Patient due for right breast mammogram after which she will follow up with radiation oncology 2. Follow here in 4 months time 3. Follow up sooner if any questions or concerns 4. Follow-up with Dr. Restrepo cc: Dr. Luther Veloz
== END ==
LOC: WWCWWP 13:42
PROVIDERS: ATTEND Surgery
DX: Z53.9 Procedure and treatment not carried out, unspecified reason (principal)

== ENCOUNTER → 2018-10-27 | Outpatient (CLI) | payer BC ==
--- NOTE | 2018-10-27 10:32 | MM ---
Reason for exam: additional evaluation requested from prior study. Last mammogram was performed 10 months ago. History: Patient is postmenopausal, has history of breast cancer at age 63, and history of other cancer. Family history of breast cancer in mother at age 63, breast cancer in paternal aunt at age 63, and breast cancer in daughter at age 41. Malignant MG pre op needle loc RT of the right breast, January 12, 2018. Malignant US biopsy breast VAD RT of the right breast, December 25, 2017. Benign right mammotome panel of the right breast, March 06, 2010. Right US Cyst Aspiration of the right breast, January 08, 2005. Reduction of the right breast, 2002. TRAM Reconstruction of the left breast, 2001. Reduction of the right breast, 1995. Mastectomy of the left breast, 1995. Chemotherapy. Radiation therapy of the left breast. Took hormonal contraceptives for 15 years. Took estrogen for 1 year beginning at age 54. Physical Findings: Nurse did not find any significant physical abnormalities on exam. MG 3D Diag Mammo W/Cad RT CC and MLO view(s) were taken of the right breast. Prior study comparison: December 25, 2017, right breast MG diagnostic mammo RT wo CAD. December 16, 2017, right breast MG 3d diag mammo w/cad RT. The breast tissue is heterogeneously dense. This may lower the sensitivity of mammography. No suspicious calcifications are seen. Stable lumpectomy and radiation therapy changes. No significant new findings when compared with previous films. These results were verbally communicated with the patient and result sheet given to the patient on 10/27/18. ASSESSMENT: Benign, BI-RAD 2 RECOMMENDATION: Follow-up diagnostic mammogram of the right breast in 1 year.
== END ==
LOC: RADMAMWWP 09:46
PROVIDERS: ATTEND Radiology Radiation Oncology
DX: C50.411 Malignant neoplasm of upper-outer quadrant of right female breast (principal); Z17.0 Estrogen receptor positive status [ER+]
CPT/HCPCS: 77061; 77065

== ENCOUNTER → 2018-12-28 | Outpatient (CLI) | payer MEDICARE ==
--- NOTE | 2018-12-28 11:18 | US ---
EXAMINATION TYPE: US gallbladder DATE OF EXAM: 12/28/2018 COMPARISON: CT 2017 CLINICAL HISTORY: R10.9 ABD PAIN. Abdomen and back pain, fever, chills, diarrhea x 2 days EXAM MEASUREMENTS: Liver Length: 14.5 cm Gallbladder Wall: 0.2 cm CBD: 0.4 cm Right Kidney: 10.0 x 4.5 x 4.1 cm Difficult and limited study due to patient body habitus Pancreas: Limited by bowel gas Liver: mildly heterogeneous Gallbladder: wnl Evidence for sonographic Chandler's sign: yes CBD: wnl Right Kidney: wnl IMPRESSION: Liver is heterogeneous correlate for hepatitis or hepatic steatosis.
== END | disposition home or self-care (01) ==
LOC: RADUSWWP 10:36
PROVIDERS: ATTEND Family Medicine
DX: R10.9 Unspecified abdominal pain (principal)
CPT/HCPCS: 76705

== ENCOUNTER → 2019-01-20 | Outpatient (CLI) | payer BC ==
--- NOTE | 2019-01-20 15:19 | P.PN ---
Subjective Progress Note Date: 01/20/19 Subjective Progress Note Date: 09/17/18 Principal diagnosis: Bilateral breast cancer Stage IA right breast cancer treated December 2017 Rosey is a 63-year-old female who is status post left mastectomy with TRAM flap reconstruction performed in 2002. She did receive adjuvant chemotherapy and chest wall radiation. In November 2017 a 7 mm lesion was noted in the right breast 3 cm from the nipple in the upper outer quadrant. An ultrasound was performed which revealed that this was a 0.8 cm solid lesion at 11:00. Core biopsy was performed which was consistent with invasive ductal carcinoma. She subsequently underwent a lumpectomy with sentinel node biopsy on . Final pathology revealed a 6 mm focus of invasive ductal carcinoma grade 2 with negative margins. 5 total lymph node nodes were sampled all of which were negative. The patient received whole breast radiation and finished this in February 2018. She tolerated this with only mild skin irritation. The patient was started on Femara, after which she initially had several urinary tract infections, she is doing better at this time and has not had one recently. The most recent lesion was a stage IA [id number] ER/VT positive and HER-2 negative grade 1 invasive ductal carcinoma The patient has no complaints at this time. The patient's at 42-year-old daughter was recently diagnosed with breast cancer she was told was stage III disease and is has finished her chemotherapy and radiation therapy. She is now completing her reconstruction. The patient's last right breast mammogram was in October 2018, this was a BIRADS 2 and repeat mammogram in 1 year is recommended. Family history: 1. Mother: Breast cancer 2. Data: Liver and skin cancer 3. Daughter: Breast cancer 4. Paternal aunt: Breast cancer 5. Maternal grandfather stomach cancer Patient had genetic testing and told no genetic risk, she saw a genetic counselor. Past surgical history: 1. Left breast mastectomy with TRAM flap reconstruction in 2002 2. Right breast lumpectomy and sentinel node biopsy 3. Partial hysterectomy 4. torn knee meniscus Medical history: 1. hypothyroid 2. reflux Social history: Smoke: Negative Alcohol: Negative Drugs: Negative Review of systems: HEENT: Wears glasses Lungs: Negative Cardiac: Hypertension GI: Negative : Partial hysterectomy Musculoskeletal: right knee arthritis Psych: negative hematologiic: none Allergies: Seasonal ALLERGIES Objective - Exam BMI 35.5 - Constitutional General appearance: Present: obese - EENT Eyes: Present: EOMI ENT: Present: hearing grossly normal - Neck Neck: Present: normal ROM - Respiratory Respiratory: bilateral: CTA - Cardiovascular Rhythm: regular Heart sounds: normal: S1, S2 - Gastrointestinal General gastrointestinal: Present: soft - Musculoskeletal Musculoskeletal: Present: gait normal - Psychiatric Psychiatric: Present: A&O x's 3, appropriate affect, intact judgment & insight - Additional findings Additional findings: Breast exam: Right breast: Well-healed scar from prior reduction mammoplasty and lumpectomy, BioSorb his propofol Right axilla: No adenopathy of concern Left breast: This is a reconstructed TRAM flap is no evidence of any recurrent cancer in the scars were chest wall Left axilla: No adenopathy of concern Assessment and Plan Assessment: Impression: 1. hypothyroid 2. reflux 3. Status post left breast mastectomy and TRAM flap reconstruction in 2002 4. Right breast reduction mammoplasty patient now has had a right breast lumpectomy and sentinel node biopsy with radiation therapy to the right breast 5. Patient is presently on Femara Plan: 1. Continue close surveillance 2. Continue Femara 3. Medical management of medical conditions Cc: Dr.Aaron Veloz. Dr. West
== END ==
DX: Z53.9 Procedure and treatment not carried out, unspecified reason (principal)

== ENCOUNTER → 2019-02-07 | Outpatient (CLI) | payer MEDICARE ==
--- NOTE | 2019-02-07 13:25 | BD ---
EXAMINATION TYPE: Axial Bone Density DATE OF EXAM: 02/07/2019 COMPARISON: 2017 CLINICAL HISTORY Height: 60.25 Weight: 192 FRAX RISK QUESTIONS: Alcohol (3 or more units per day): no Family History (Parent hip fracture): none known Glucocorticoids (More than 3mos): no (Ex: prednisone, prednisolone, methylprednisolone, dexamethasone, and hydrocortisone). History of Fracture in Adulthood: no Secondary Osteoporosis: 1. Type 1 Diabetes: no 2. Hyperthyroidism: no 3. Menopause before 45: hysterectomy age 43, but not a complete hysterectomy 4. Malnutrition: no 5. Chronic liver disease: no Rheumatoid Arthritis: no Current Tobacco Use: no RISK FACTORS HISTORY OF: Family History of Osteoporosis: not to knowledge of patient Active: yes Diet low in dairy products/other sources of calcium: servings several times a week Postmenopausal woman: yes Take estrogen and/or progesterone medications: not now How long: hormonal contraceptives about 15 years; estrogen about age [age] Lost more than 2 inches in height since high school: no Frequent falls: no Poor Health: recovering from breast CA last year Hyperparathyroidism: no Adrenal Insufficiency: no MEDICATIONS: Thyroid Medications: yes Which medication: levothyroxine How Long: over 5 years, possibly 10 Osteoporosis Medications: no Additional Medications: blood pressure med, Femara , calcium & Vitamin D Additional History: Bilateral breast CA/radiation-chemo EXAM MEASUREMENTS: Bone mineral densitometry was performed using the [employer]. Bone mineral density as measured about the Lumbar spine is: ----- L1-L4(G/cm2): 1.182 T Score Values are as follows: ----- L2: 0.4 ----- L3: 0.2 ----- L4: -0.2 ----- L1-L4: 0.0 Bone mineral density has: Decreased -3.9% since study of: 02/05/2017 Bone mineral density about the R hip (g/cm2): 0.870 Bone mineral density about the L hip (g/cm2): 0.871 T Score values are as follows: -----R Neck: -1.2 -----L Neck: -1.2 -----R Total: -0.3 -----L Total: 0.2 Bone mineral density has: Decreased -6.7% since study of: 02/05/2017 IMPRESSION: No evidence for osteoporosis or osteopenia. NOTE: T-SCORE=SD OF THE YOUNG ADULT MEAN.
== END | disposition home or self-care (01) ==
LOC: RADBDWWP 09:59
PROVIDERS: ATTEND Internal Medicine Hematology & Oncology
DX: N95.1 Menopausal and female climacteric states (principal); C50.211 Malignant neoplasm of upper-inner quadrant of right female breast; Z79.890 Hormone replacement therapy
CPT/HCPCS: 77080

== ENCOUNTER → 2019-07-21 | Outpatient (CLI) | payer MEDICARE ==
[2019-07-21 11:52] VITALS: BP 127/84; PULSE 79; RESP 18; TEMP 98.1
--- NOTE | 2019-07-21 12:11 | P.PN ---
Subjective Progress Note Date: 07/21/19 Principal diagnosis: surveillance for bilateral breast cancer Bilateral breast cancer Stage IA right breast cancer treated December 2017 Rosey is a 63-year-old female who is status post left mastectomy with TRAM flap reconstruction performed in 2002. She did receive adjuvant chemotherapy and chest wall radiation. In November 2017 a 7 mm lesion was noted in the right breast 3 cm from the nipple in the upper outer quadrant. An ultrasound was performed which revealed that this was a 0.8 cm solid lesion at 11:00. Core biopsy was performed which was consistent with invasive ductal carcinoma. She subsequently underwent a lumpectomy with sentinel node biopsy on . Final pathology revealed a 6 mm focus of invasive ductal carcinoma grade 2 with negative margins. 5 total lymph node nodes were sampled all of which were negative. The patient received whole breast radiation and finished this in February 2018. She tolerated this with only mild skin irritation. The patient was started on Femara, after which she initially had several urinary tract infections but this has not happened recently. She is complaining of hand and knee pain. The most recent lesion was a stage IA [id number] ER/NM positive and HER-2 negative grade 1 invasive ductal carcinoma The patient has no complaints at this time. The patient's at 42-year-old daughter was recently diagnosed with breast cancer she was told was stage III disease and is has finished her chemotherapy and radiation therapy. She is now completing her reconstruction. The patient's last right breast mammogram was in October 2018, this was a BIRADS 2 and repeat mammogram in 1 year is recommended. Family history: 1. Mother: Breast cancer 2. father: Liver and skin cancer 3. Daughter: Breast cancer 4. Paternal aunt: Breast cancer 5. Maternal grandfather stomach cancer Patient had genetic testing and told no genetic risk, she saw a genetic counselor. Past surgical history: 1. Left breast mastectomy with TRAM flap reconstruction in 2002 2. Right breast lumpectomy and sentinel node biopsy 3. Partial hysterectomy 4. torn knee meniscus Medical history: 1. hypothyroid 2. reflux Social history: Smoke: Negative Alcohol: Negative Drugs: Negative Review of systems: Constitutional: Negative HEENT: Wears glasses Lungs: Negative Cardiac: Hypertension GI: Negative : Partial hysterectomy Musculoskeletal: right knee arthritis Psych: negative hematologiic: none Allergies: Seasonal ALLERGIES Objective - Vital Signs Vital signs: Vital Signs Temp 98.1 F 07/21/19 11:49 Pulse 79 07/21/19 11:49 Resp 18 07/21/19 11:49 BP 127/84 07/21/19 11:49 Pulse Ox 98 07/21/19 11:49 Intake & Output 07/20/19 07/21/19 07/21/19 18:59 06:59 18:59 Weight 88.451 kg - Exam BMI 36.8 - Constitutional General appearance: Present: obese - EENT Eyes: Present: EOMI ENT: Present: hearing grossly normal - Neck Neck: Present: normal ROM - Respiratory Respiratory: bilateral: CTA - Cardiovascular Rhythm: regular Heart sounds: normal: S1, S2 - Gastrointestinal General gastrointestinal: Present: normal bowel sounds, soft - Integumentary Integumentary: Present: normal turgor - Musculoskeletal Musculoskeletal: Present: gait normal - Psychiatric Psychiatric: Present: A&O x's 3, appropriate affect, intact judgment & insight - Additional findings Additional findings: breast examination: BRA 40B right breast ptosis: grade1 left side ptosis grade 2/3 Inspection: Right breast; well-healed scars from reduction mammoplasty no lesions of concern Left breast: Well-healed scars from TRAM flap reconstruction Palpation: Right breast: Multi-positional exam BioSorb remains palpable otherwise no masses or nodules of concern, fibrocystic changes, well-healed scars from reduction mammoplasty Right axilla: No adenopathy of concern Left breast: Chest wall no evidence of recurrence this is a reconstructed TRAM flap Left axilla: No adenopathy of concern Assessment and Plan Assessment: Impression: 1. Patient status post left breast mastectomy with TRAM flap reconstruction breast cancer 1994, reconstruction 2002, she underwent chemotherapy and chest wall radiation at that time 2. Status post right breast reduction/followed by diagnosis of right breast malignancy for which she had lumpectomy, and sentinel node biopsy, 01-12-18 final pathology revealed a stage IA lesion. 3. Patient presently on letrazole 4. Patient does complain of some hand discomfort as well as knee discomfort is following with orthopedics 5. Hypothyroid 6. Reflux 7. Palpable mass in right breast consistent with BioSorb Plan: 1. Bilateral mammogram in October 2019 2. Follow-up after bilateral mammogram 3. Continue letrazole as per Dr. Bourgeois I have discussed with the patient the option of surgical removal of the BioSorb. At this time she states it does not bother her enough that she wishes it to be removed. We've talked about the fact that at this time we believe she is cancer free. She'll continue close surveillance. She is due for bilateral mammogram in October 2019. She will follow with me after that. We have also discussed the joint and hand discomfort, this may be related to select resolved she is going to see orthopedics and is following with medical oncology. Cc: Dr.Aaron Veloz encounter 25 minutes, > 50% of time spent in planning and counselling Time with Patient: Less than 30
== END | disposition home or self-care (01) ==
LOC: WWCWWP 11:38
PROVIDERS: ATTEND Surgery
DX: Z53.9 Procedure and treatment not carried out, unspecified reason (principal)

== ENCOUNTER → 2019-11-22 | Outpatient (CLI) | payer MEDICARE ==
[2019-11-22 11:29] LABS: HGB 14.2 gm/dL (11.4-16.0); MCH 31.8 pg (25.0-35.0); MCHC 33.9 g/dL (31.0-37.0); MCV 93.8 fL (80.0-100.0); Mean Platelet Volume 7.7; Platelet Count 194 k/uL (150-450); RBC 4.48 m/uL (3.80-5.40); RDW 12.9 % (11.5-15.5); WBC 8.7 k/uL (3.8-10.6)
[2019-11-22 11:30] LABS: Appearance,Urine Clear (Clear); Bilirubin,Urine Negative (Negative); Blood,Urine Negative (Negative); Color,Urine Yellow; Glucose,Urine (UA) Negative (Negative); Ketones,Urine Negative (Negative); Leukocyte Esterase,Urine Negative (Negative); Nitrite,Urine Negative (Negative); Protein,Urine Negative (Negative); Specific Gravity,Urine 1.016 (1.001-1.035); Urobilinogen,Urine <2.0 mg/dL (<2.0)
[2019-11-22 11:39] LABS: Partial Thromboplastin Time 23.9 sec (22.0-30.0); Prothrombin Time 10.1 sec (9.0-12.0)
[2019-11-22 15:28] LABS: African American GFR (CKD) 105.4 (60.0-200.0); Albumin 4.3 g/dL (3.80-4.90); Albumin/Globulin Ratio 2.39 (1.60-3.17); Anion Gap 8.8 mmol/L (4.00-12.00); BUN/Creat Ratio 24.29 Ratio (12.00-20.00); Calcium 9.3 mg/dL (8.7-10.3); Carbon Dioxide 24.2 mmol/L (21.6-31.8); Globulin 1.8 g/dL (1.6-3.3); Non-African American GFR(CKD) 90.9 (60.0-200.0); Potassium 4.4 mmol/L (3.5-5.5); Total Bilirubin 0.5 mg/dL (0.2-1.2); Total Protein 6.1 g/dL (6.2-8.2)
== END | disposition home or self-care (01) ==
LOC: LABWHC1 10:26
PROVIDERS: ATTEND Orthopaedic Surgery Sports Medicine
DX: Z01.818 Encounter for other preprocedural examination (principal); Z01.812 Encounter for preprocedural laboratory examination
CPT/HCPCS: 36415; 80053; 81003; 85027; 85610; 85730; 87070; 87635

== ENCOUNTER 2019-11-25 10:35 | Day surgery (SDC) | payer MEDICARE ==
[2019-11-16 09:52] VITALS: BMI 38.7
[~2019-11-25 10:35] MED LIST changes: +ACETAMINOPHEN TAB 500 MG TAB PO ONE; +GABAPENTIN 300 MG CAP PO ONE; -HEPARIN SODIUM,PORCINE 5,000 UNIT/ML 1 ML VIAL SQ ONE; +HYDROmorphone 0.5 MG/0.5 ML SYRINGE IVP PRN; -LIDOCAINE 1% 20 ML VIAL (10MG/ML) FOR IV START INTRADERMA PRN; +MELOXICAM 7.5 MG TAB PO ONE; -Pre Op ABX Message 1 EACH MISC MISCELLANE ONE; +ROPIVACAINE 246.25 MG, EPINEPHrine 0.5 MG, KETOROLAC 30 MG, cloNIDine HCL/PF 80 MCG, WA... MISCELLANE ONE; +TRANEXAMIC ACID 1,000 MG in SODIUM CHLORIDE 0.9% 100 ML IVPB ONE; -fentaNYL (PF) 50 MCG/ML 2 ML AMP IV PRN
[2019-11-25] MEDS ORDERED: MIDAZOLAM 2 MG/2 ML VIAL IVP ONE (11:56)
[2019-11-25] MEDS ORDERED: HYDROcodone/APAP 10-325MG 1 EACH TAB PO PRN (12:07)
[2019-11-25] MEDS ORDERED: MAGNESIUM HYDROXIDE 2,400 MG/10 ML CUP PO PRN (12:07)
[2019-11-25] MEDS ORDERED: HYDROcodone/APAP 5-325MG 1 EACH TAB PO PRN (12:07)
[2019-11-25] MEDS ORDERED: ONDANSETRON 4 MG/2 ML VIAL IVP PRN (12:07)
[2019-11-25] MEDS ORDERED: NA PHOS,M-B/NA PHOS,DI-BA 133 ML ENEMA RECTAL PRN (12:07)
[2019-11-25] MEDS ORDERED: traMADol 50 MG TAB PO PRN (12:07)
[2019-11-25] MEDS ORDERED: HYDROmorphone 0.5 MG/0.5 ML SYRINGE IVP PRN ×2 (12:07)
[2019-11-25] MEDS ORDERED: BISACODYL 10 MG SUPP RECTAL PRN (12:07)
[2019-11-25] MEDS ORDERED: NALOXONE 0.4 MG/ML 1 ML VIAL IV PRN (12:07)
[2019-11-25] MEDS ORDERED: hydrOXYzine PAMOATE 25 MG CAP PO PRN (12:07)
[2019-11-25] MEDS ORDERED: TEMAZEPAM 15 MG CAP PO PRN (12:07)
[2019-11-25] MEDS ORDERED: fentaNYL (PF) 50 MCG/ML 2 ML AMP ONE (12:37)
[2019-11-25] MEDS ORDERED: MIDAZOLAM 2 MG/2 ML VIAL ONE (12:37)
[2019-11-25] MEDS ORDERED: TRANEXAMIC ACID 1,000 MG/10 ML VIAL ONE (12:37)
[2019-11-25] MEDS ORDERED: SODIUM CHLORIDE 0.9% 100 ML BAG ONE (12:37)
[2019-11-25] MEDS ORDERED: PROPOFOL 10 MG/ML 20 ML VIAL IV ONE (12:37)
[2019-11-25] MEDS ORDERED: ROPIVACAINE 0.2%-NS ON-Q PUMP 1,090 MG, EMPTY PAIN BALL 1 EACH MISCELLANE PRN (13:12)
--- NOTE | 2019-11-25 13:12 | P.ANPRN ---
Procedure Note - Anesthesia - Nerve Block Performed Right Adductor Canal Date of Procedure: 11/25/19 Procedure Start Time: 11:55 Procedure Stop Time: 12:08 Location of Patient: PreOp Indication: Acute Post-Operative Pain, Requested by Surgeon (Dr Chandler) Sedation Type: Sedate with meaningful contact maintained Preparation: Sterile Prep, Sterile Dressing Position: Supine Catheter: Indwelling Needle Types: Pajunk Needle Gauge: 21 Ultrasound used to visualize needle placement: Yes Ultrasound used to observe medication spread: Yes Injectate: 0.5% Ropivacaine (see comment for volume) (20cc) Blood Aspirated: No Pain Paresthesia on Injection Noted: No Resistance on Injection: Normal Image Stored and Saved: Yes Events: Uneventful and Well Tolerated
[2019-11-25] MEDS ORDERED: ceFAZolin 3,000 MG in SODIUM CHLORIDE 0.9% IRRIGATIO 3,000 ML IRRIGATION ONE (13:14)
--- NOTE | 2019-11-25 15:07 | XR ---
EXAMINATION TYPE: XR knee limited RT DATE OF EXAM: 11/25/2019 COMPARISON: NONE TECHNIQUE: Two views submitted HISTORY: Post op FINDINGS: There is a prosthetic knee in near anatomic alignment. There is soft tissue edema and emphysema. IMPRESSION: 1. Postoperative change. Appears in near-anatomic alignment
[2019-11-25] MEDS ORDERED: ALPRAZolam 0.5 MG TAB PO PRN (16:44)
[2019-11-25] MEDS: HYDROmorphone 0.5 MG/0.5 ML SYRINGE IVP PRN (17:20)
[2019-11-25 17:51] VITALS: RESP 18
[2019-11-25] MEDS: LACTATED RINGERS 1,000 ML IV SCH (18:44)
[2019-11-25] MEDS: ASPIRIN 325 MG TAB PO SCH (20:31)
--- NOTE | 2019-11-25 20:54 | CONS ---
CONSULTATION DATE OF SERVICE: 11/25/2019 REASON FOR CONSULTATION: Advice regarding hypertension and hyperlipidemia, requested by Dr. Chandler. HISTORY OF PRESENT ILLNESS: This 64-year-old woman with a past medical history of multiple medical problems, including GERD, hypertension, hyperlipidemia, history of DJD, history of bilateral breast cancer, bariatric surgery, being followed by Dr. Luther Veloz in the outpatient setting, was admitted after right total knee arthroplasty. The patient is complaining of some pain which is increasing slightly at this time. There is no history of any fever, rigor or chills. No history of headache, loss of consciousness, seizures, chest pain, palpitation at this time. PAST MEDICAL HISTORY: Bilateral breast cancer, history of GERD, hypertension, hyperlipidemia, history of DJD, history of bariatric surgery, history of breast surgery, history of anxiety. MEDICATIONS: Medications prior to admission include: 1. Norvasc 5 mg each morning. 2. Prilosec 20 mg each morning. 3. Multivitamins 1 p.o. daily. 4. Synthroid 88 mcg p.o. daily. 5. Femara 2.5 mg at bedtime. 6. Motrin 200 mg q.8 p.r.n. 7. Calcium with vitamin D p.o. daily. 8. Lipitor 40 mg p.o. each morning. 9. Xanax 0.5 daily p.r.n. ALLERGIES: NONE. FAMILY HISTORY: History of breast cancer in the family. SOCIAL HISTORY: Occasional alcohol intake. No history of smoking. REVIEW OF SYSTEMS: ENT: No diminished hearing. No diminished vision. CARDIOVASCULAR SYSTEM: No angina, palpitations. RESPIRATORY SYSTEM: As mentioned earlier. GI: No nausea, vomiting. : No dysuria or retention. NERVOUS SYSTEM: No numbness, weakness. ALLERGY/IMMUNOLOGY: No asthma, hayfever. MUSCULOSKELETAL: As mentioned earlier. HEMATOLOGY/ONCOLOGY: No history of anemia. ENDOCRINE: Hypothyroidism. CONSTITUTIONAL: As mentioned earlier. DERMATOLOGY: Negative. RHEUMATOLOGY: Negative. PSYCHIATRY: As mentioned earlier. PHYSICAL EXAMINATION: Patient alert and oriented x3. Pulse 72, blood pressure 135/73, respiration 17, temperature 97.4, pulse ox 96% on room air. HEENT: Conjunctivae normal. NECK: No jugular venous distention. CARDIOVASCULAR SYSTEM: S1, S2 muffled. RESPIRATORY SYSTEM: Breath sounds diminished at the bases. No rhonchi. No crackles. ABDOMEN: Soft, obese, non-tender. No mass palpable. LEGS: Status post right knee arthroplasty. NERVOUS SYSTEM: Higher functions as mentioned earlier. Moves all 4 limbs. No focal motor or sensory deficit. LYMPHATICS: No lymph node palpable in neck, axillae or groin. SKIN: No ulcer, rash, bleeding. JOINTS: As mentioned earlier. LAB: BMP normal. Otherwise, CBC noted. ASSESSMENT: 1. Status post right total knee arthroplasty. 2. Gastroesophageal reflux disease. 3. Hypertension. 4. Hyperlipidemia. 5. History of degenerative joint disease. 6. History of hypothyroidism. 7. History of bilateral breast cancer, status post chemoradiation. 8. History of bariatric surgery. 9. History of breast surgery. 10.History of hysterectomy. 11.History of anxiety. 12.Obesity with a body mass index of 38.7. 13.FULL CODE. RECOMMENDATIONS AND DISCUSSION: In this 64-year-old woman who presented with multiple complex medical issues, we will monitor the patient closely, continue the current medications, continue symptomatic treatment. Otherwise at this time resume the home medications. DVT prophylaxis. Incentive spirometry. Will follow the patient closely with you. The patient may be asked to follow with Dr. Luther Veloz closely after discharge. Thank you, Dr. Chandler, for letting us participate in the care of this patient. MMODL / IJN: [id number] /
[2019-11-25] MEDS ORDERED: LETROZOLE 2.5 MG TAB PO SCH (21:00)
[2019-11-25] MEDS ORDERED: SENNOSIDES-DOCUSATE SODIUM 1 EACH TAB PO SCH (21:00)
--- NOTE | 2019-11-25 22:31 | OP ---
OPERATIVE REPORT DATE OF PROCEDURE: 11/25/2019 SURGEON: Rod Chandler M.D. HAND CARVER: Kadeem Powell PA-C. PREOPERATIVE DIAGNOSIS: Right knee osteoarthrosis. POSTOPERATIVE DIAGNOSIS: Right knee osteoarthrosis. OPERATION: Right total knee arthroplasty. ANESTHESIA: Spinal with sedation. ESTIMATED BLOOD LOSS: 100 mL. TOURNIQUET TIME: 52 minutes at 250 mmHg. COMPLICATIONS: None apparent. DRAINS: None. DISPOSITION: Post-Anesthesia Care Unit. INDICATIONS: Rosey is a 64-year-old female with longstanding history of right knee pain. History and physical examination are consistent with advanced right knee osteoarthrosis. She has been through significant nonoperative management up to this point. Further treatment options were discussed and she has decided to go forward with right total knee arthroplasty. The risks of the procedure were discussed with her in detail. These risks include but are not limited to risk of infection, nerve damage, bleeding, pain and risk of deep vein thrombosis which could lead to fatal pulmonary embolism. There is also a risk of loosening of the implant which could require revision operation. The patient understands these risks. All of her questions were answered to her satisfaction. Appropriate informed consent was obtained. DESCRIPTION OF PROCEDURE: The patient was identified in the preoperative holding area. Surgical site was marked by both the patient and myself. She was given 2 grams of Ancef IV for prophylactic purposes. She was then transferred to the operative suite, where she was placed supine on the operating room table. Spinal anesthetic was then administered and dosed per the anesthesia department without apparent complication. Examination under anesthesia was then performed. The patient was 2-3 degrees shy of full extension. She had 95 degrees of flexion, and the medial collateral ligament, lateral collateral ligament and posterior cruciate ligaments were stable. Tourniquet was then placed high on the right upper thigh, well padded in preparation for surgery. The patient's right lower extremity was then prepped and draped in the usual sterile fashion. A standard surgical pause was then undertaken to ensure that we were operating on the correct site and that appropriate preoperative antibiotics had been given. All staff in the room were in agreement and we proceeded. The outlines of the patella were marked with a surgical pen. A planned 12 cm vertical incision centered over the patella was marked with a surgical pen. The leg was then exsanguinated with an Esmarch dressing. The knee was then flexed and the tourniquet was inflated to 250 mmHg. The total tourniquet time for the procedure was 52 minutes. Incision was then made with a 10-blade scalpel. Dissection was carried down sharply to the overlying fascia. Great care was taken to minimize the skin flaps. The knee was then exposed using a standard medial parapatellar approach. A small cuff of quadriceps tendon was then left for suturing. She was in a bit of varus preoperatively. A standard medial release was then made. Superficial medial collateral ligament was dissected off of the bone and around to the posterior aspect of the proximal tibia. The medial meniscus was then excised as well. The lateral meniscus was also released anteriorly. The leg was then externally rotated. The patella was everted. The knee was flexed. The retractors were then placed to protect the collateral ligaments. I then proceeded to remove the infrapatellar fat pad. This was excised sharply tangentially with the fibers of the patellar tendon. I then proceeded to remove the peripheral osteophytes. This was done with a rongeur. I then proceeded with the distal femoral resection. She did have near-full extension. A planned 9 mm resection was then done. The femoral canal was then entered in the midline of the femur approximately 10 mm anterior to the origin of the posterior cruciate ligament. The basil was then advanced down the center of the femur and placed intramedullary. Based on the preoperative radiographs, the angle between the anatomic and mechanical axis of the femur was approximately 4-5 degrees. The valgus angle of the distal femoral cutting guide was then set at 4 degrees for the right knee. The distal femoral cutting guide was then advanced over the intramedullary basil. This was seated firmly against the femur. I then, as mentioned, planned to take 9 mm off the distal femur. The cutting block was then secured onto the femur with pins. The jig was then removed and the distal femoral cut was made through the slot of the block. The pins were then removed and the distal femoral cutting block was removed. The accuracy of the distal femoral cuts was checked with 2 flat bars. I then proceeded with femoral sizing. The posterior referencing sizing guide was held firmly against the resected distal surface of the femur. The posterior condyles were resting on the posterior plane of the guide. The sizing stylus was then placed onto the anterior femur. The size was measured as a size 5. I then assessed for femoral rotation. Three degrees of external rotation was placed onto the jig. These holes were then marked. I then confirmed the rotation by 3 separate methods. This was done using the epicondylar axis as well as Whitesides line and posterior referencing. It was deemed that the external rotation was proper. I then went forward with placing the femoral cutting block. This was placed over the previously placed pin holes. The Geovanni wing was then placed onto the anterior slots to ensure that we would not notch the anterior femur with the anterior femoral cut. I then proceeded with the anterior femoral cut. This was flush with the anterior cortex of the femur. Posterior cuts were then made followed by the anterior chamfer cut, and then the posterior chamfer cut. The cutting block was then removed. Throughout the resection, the collateral ligaments were protected with retractors. I then placed a trial size 5 femur. It was slightly wide, but the narrow very nicely and fit flush with the distal end of the femur. The drill holes were then made. I then proceeded with the tibial cut. I planned for a cruciate-retaining knee. The guide was placed and set for varus, valgus and for slope. The height was set for an approximate 2 mm resection from the medial tibial plateau, which was the lower side. I was happy with the alignment and the amount of resection. The cutting block was then pinned to the proximal tibia. The alignment basil was removed and the proximal tibia was resected with a reciprocating saw. Again this was done with retractors protecting the collateral ligaments as well as the posterior cruciate ligament. I then proceeded to evaluate the flexion and extension gaps. A 10 mm block was then placed. The flexion and extension gaps were equal. I then proceeded with the resection of the posterior osteophytes. She had very minimal posterior osteophytes. This was done using a curved osteotome. This resected the posterior osteophytes, and posterior capsule stripping was done off the posterior aspect of the femur at this time. The osteophytes were then removed. I then proceeded with resection of the patella. The thickness of the patella was measured using the caliper. The thickness was 22 mm. Thickness of the anticipated patellar dome was taken into account. Resection was then performed and confirmed to be equal in 4 quadrants using a caliper. Approximately 14 mm of bone remained after the resection. A 26 x 7.5 standard patellar trial was then placed. The holes were drilled and the trial was then placed. I then proceeded with sizing the tibial plate. A size C tibial plate fit very nicely. I then placed the trial femur and the tibial tray and the patellar button. A 10 mm trial tibial insert was also placed. The components fit very nicely. She had full extension and flexion. The extension and flexion gaps were equal and stable to both varus and valgus stress. The patella tracked appropriately. The tibial tray rotation was then marked with a Bovie. This was externally rotated properly. I then proceeded with tibial preparation. I first drilled the femoral holes and removed the femoral component. The tibial tray was then set for proper external rotation as well as mediolateral placement onto the tibia. It was then pinned into place. I then proceeded with punching the keel. I then decided to proceed with cementing of all of our components. The knee was thoroughly irrigated with sterile saline solution via pulse lavage. The lateral geniculate artery was identified and cauterized. All blood was removed from the bone of the tibia, femur and patella with pulse lavage. I then proceed with cementing. Two packs of antibiotic bone cement were prepared on the back table by the ophthalmic surgical assistant. I then proceeded with cementing of the tibia first. The cement was impacted into the keel as well as deeply seated into the bone. A second coat of cement was then placed. The tibia was then impacted into place. Excess cement was removed with Wheeler's and jokers. I then proceed with cementing of the femoral component. The femoral component was also cemented using standard technique. Excess cement was removed. A 10 mm trial insert was then placed into the knee. It was brought into full extension with a constant axial load placed until the cement had hardened. The patellar component was then cemented. This was held firmly with a compressive device until the cement had dried. When the cement had dried, the knee was taken out of extension. All excess cement was removed from around the prosthesis. I then trialed the knee with a 10 mm insert. The flexion and extension gaps were appropriate. I decided to go forward with a 10 mm cross-linked cruciate-retaining tibial insert. Polyethylene was then placed onto the tibial tray and locked into place. The knee was then reduced. The knee was again further irrigated with sterile saline solution with antibiotic added. The tourniquet was then deflated. The total tourniquet time for the procedure was 52 minutes at 250 mmHg. The final components were a Deloris Persona size 5 narrow cruciate-retaining femoral component, a size C tibial tray, a 10 mm medial- congruent cruciate-retaining polyethylene insert, and a 26 x 7.5 mm patella. I then proceeded with closure. Again the knee was thoroughly irrigated. The quadriceps tendon and the medial retinaculum were reapproximated with #2 Ethibond suture. The extensor mechanism was then closed with a running #2 Quill suture. Subcutaneous tissues were then closed with 2-0 Vicryl interrupted suture. The skin was closed with a running 3-0 Quill suture. Dermabond was applied to the incision. Sterile compressive dressings were then applied. All sponge and needle counts were deemed correct prior to closure. The patient tolerated the procedure without apparent complication. She was transferred to the recovery room in stable condition. MMODL / AUSTINN: [id number] /
[2019-11-26] MEDS: LACTATED RINGERS 1,000 ML IV SCH ×2 (01:45→07:57)
[2019-11-26] MEDS: HYDROmorphone 0.5 MG/0.5 ML SYRINGE IVP PRN (03:03)
[2019-11-26 06:50] LABS: Basophils % (A) 0 %; Eosinophils % (A) 0 %; HCT 36.2 % (34.0-46.0); HGB 12.6 gm/dL (11.4-16.0); Lymphocytes # (A) 0.8 k/uL (1.0-4.8); Lymphocytes % (A) 8 %; MCH 32.2 pg (25.0-35.0); MCHC 34.7 g/dL (31.0-37.0); MCV 92.8 fL (80.0-100.0); Mean Platelet Volume 7.8; Monocytes # (A) 0.4 k/uL (0-1.0); Monocytes % (A) 5 %; Neutrophils # (A) 7.9 k/uL (1.3-7.7); Neutrophils % (A) 86 %; Platelet Count 188 k/uL (150-450); RBC 3.89 m/uL (3.80-5.40); RDW 12.9 % (11.5-15.5); WBC 9.2 k/uL (3.8-10.6)
[2019-11-26] MEDS ORDERED: PANTOPRAZOLE 40 MG TABLET PO SCH (07:30)
[2019-11-26] MEDS: ASPIRIN 325 MG TAB PO SCH (07:57)
[2019-11-26] MEDS ORDERED: amLODIPine 5 MG TAB PO SCH (09:00)
[2019-11-26] MEDS ORDERED: IRON PO SCH (09:00)
[2019-11-26] MEDS ORDERED: CALCIUM CARB-VIT D 500MG-200UN 1 EACH TAB PO SCH (09:00)
[2019-11-26] MEDS ORDERED: ATORVASTATIN 40 MG TAB PO SCH (09:00)
[2019-11-26] MEDS ORDERED: FOLIC PO SCH (09:00)
[2019-11-26] MEDS ORDERED: LUTEIN PO SCH (09:00)
[2019-11-26] MEDS ORDERED: LEVOTHYROXINE 88 MCG TAB PO SCH (09:00)
[2019-11-26] MEDS ORDERED: MULTIVIT MIN PO SCH (09:00)
[2019-11-26] MEDS ORDERED: [UNRECOGNIZED DRUG - OTHER] PO SCH (09:00)
[2019-11-26 09:56] VITALS: BP 175/72; PULSE 74; TEMP 98.6
--- NOTE | 2019-11-26 11:06 | P.DS ---
Providers Expected date of discharge: 11/26/19 Attending physician: Rod Chandler Consults: 11/25/19 12:07 Consult Physician Routine Consulting Provider: Luther Veloz Consult Reason/Comments: post op medical management Do you want consulting provider notified?: Yes Primary care physician: Luther Veloz [facility] Course: This is a 64-year-old female who was last seen by Dr. Chandler with complaint of continued right knee pain. The patient has a known history of degenerative arthritis of the right knee and presents to discuss surgical options. After discussion and consideration the patient elects to proceed with total right knee arthroplasty. The patient is seen preoperatively by Dr. Veloz and cleared for surgery. The patient is admitted to [facility] for total right knee arthroplasty. The procedures performed without complication or sequelae. Patient is doing well postoperatively. Vital signs are stable at discharge. Labs are stable at discharge. The patient is seen and examined bedside this morning. The patient states she overall feels well this morning. She is experiencing mild pain in the right knee, although pain is well-controlled with oral medications. She states she has been up with physical therapy and ambulating with a walker with no issues. Patient is tolerating her diet well. She denies issues with urination. The patient is planning to discharge home today with home health services. The patient denies chest pain, shortness breath, nausea, vomiting, fevers, chills. Overall she feels well. Patient has no complaints at the time exam. On examination, the patient is resting in bed in no apparent distress. She is alert and oriented 3. On inspection of the right lower extremity, there is a clean, dry, intact dressing in place of the anterior knee with no bleeding or drainage through the dressing. Right calf is soft and nontender to palpation. The patient good strength and range of motion of the right ankle. Right lower extremity is warm and well-perfused with brisk capillary refill distally. Dorsalis pedis pulse +2. The patient is discharged to home on post-operative day #1 pending medical clearance. Please see orders and refer to the med rec for accurate list of medications. Plan - Discharge Summary Discharge Rx Participant: Yes New Discharge Prescriptions: New HYDROcodone/APAP 7.5-325MG [Wadsworth 7.5-325] 1 - 2 tab PO Q6HR PRN 7 Days #42 tab PRN Reason: Pain Aspirin 325 mg PO BID #60 tab No Action ALPRAZolam [Xanax] 0.5 mg PO DAILY PRN PRN Reason: Anxiety amLODIPine [Norvasc] 5 mg PO QAM Omeprazole [PriLOSEC] 20 mg PO QAM Atorvastatin [Lipitor] 40 mg PO QAM Letrozole [Femara] 2.5 mg PO HS Levothyroxine Sodium [Synthroid] 88 mcg PO DAILY Multivit-Min/Iron/Folic/Lutein [Centrum Silver Women Tablet] 1 each PO DAILY Ibuprofen [Motrin Ib] 200 mg PO Q8H PRN PRN Reason: Pain Calcium + Vit D(Dose Unknown) 1 tab PO DAILY Discharge Medication List ALPRAZolam [Xanax] 0.5 mg PO DAILY PRN 06/12/17 [History] amLODIPine [Norvasc] 5 mg PO QAM 09/10/17 [History] Atorvastatin [Lipitor] 40 mg PO QAM 12/18/17 [History] Omeprazole [PriLOSEC] 20 mg PO QAM 12/18/17 [History] Letrozole [Femara] 2.5 mg PO HS 05/27/18 [History] Calcium + Vit D(Dose Unknown) 1 tab PO DAILY 11/16/19 [History] Ibuprofen [Motrin Ib] 200 mg PO Q8H PRN 11/16/19 [History] Levothyroxine Sodium [Synthroid] 88 mcg PO DAILY 11/16/19 [History] Multivit-Min/Iron/Folic/Lutein [Centrum Silver Women Tablet] 1 each PO DAILY 11/16/19 [History] Aspirin 325 mg PO BID #60 tab 11/26/19 [Rx] HYDROcodone/APAP 7.5-325MG [Wadsworth 7.5-325] 1 - 2 tab PO Q6HR PRN 7 Days #42 tab 11/26/19 [Rx] Follow up Appointment(s)/Referral(s): [facility], [NON-STAFF] - 1 Week Rod Chandler MD [STAFF PHYSICIAN] - 10 Days Patient Instructions/Handouts: *Surgery [facility] - On-Q Pain Pump Discharge Instructions, Joint Replacement Surgery (DC) Activity/Diet/Wound Care/Special Instructions: Keep wound clean and dry Take meds as directed. Aspirin 325 mg twice a day for 1 month for DVT prophylaxis. Follow-up with Dr. Chandler in office Weight bear as tolerated May shower in 3 days if no bleeding Discharge Disposition: HOME WITH HOME HEALTH SERVICES
[2019-11-26] MEDS ORDERED: MULTIVITAMINS, THERA 1 EACH TAB PO SCH (12:00)
--- NOTE | 2019-11-26 18:25 | PN ---
PROGRESS NOTE DATE OF SERVICE: 11/26/2019 This 64-year-old woman who was admitted after right total knee arthroplasty, seemed to ( ). No chest pain. No palpitations. No fever. Orthopedics is planning discharge today. PHYSICAL EXAMINATION: Alert and oriented x3. Pulse 74, blood pressure 117/72, respirations 16, temperature 98.6, pulse ox 96% on room air. HEENT: Conjunctivae normal. Oral mucosa moist. NECK: No jugular venous distention. No lymph node enlargement. CARDIOVASCULAR: S1, S2. RESPIRATORY: Diminished breath sounds at the bases. No rhonchi, no crackles. ABDOMEN: Soft, nontender. LEGS: Status post right total knee arthroplasty. NERVOUS SYSTEM: No focal deficits. LABS: CBC within normal limits. ASSESSMENT: 1. Status post right total knee arthroplasty. 2. Gastroesophageal reflux disease. 3. Hypertension. 4. Hyperlipidemia. 5. History of degenerative joint disease. 6. History of hypothyroidism. 7. History of bilateral breast cancer status post chemo and radiation. 8. History of bariatric surgery. 9. History of breast surgery. 10.History of hysterectomy. 11.History of anxiety. 12.Obesity, body mass index of 38.7. 13.FULL CODE. RECOMMENDATIONS AND DISCUSSION: Recommend to continue current management, continue symptomatic treatment. I recommend resume the home medications and closely monitor blood pressure, to be followed at Dr. Veloz's office. Otherwise, rest of the recommendations per Orthopedic Surgery. Further recommendations to follow. MMODL / IJN: [id number] /
== END 2019-11-26 11:51 | disposition home health service (06) ==
LOC: OR 10:35 → 5NMEDONC 14:57 → OR 11-26 11:51
PROVIDERS: ATTEND Orthopaedic Surgery Sports Medicine
DX: M17.11 Unilateral primary osteoarthritis, right knee (principal); E03.9 Hypothyroidism, unspecified; I10 Essential (primary) hypertension; E78.5 Hyperlipidemia, unspecified; Z85.3 Personal history of malignant neoplasm of breast; F41.9 Anxiety disorder, unspecified; H91.90 Unspecified hearing loss, unspecified ear; Z83.3 Family history of diabetes mellitus; Z79.1 Long term (current) use of non-steroidal anti-inflammatories (NSAID); Z79.811 Long term (current) use of aromatase inhibitors; Z79.890 Hormone replacement therapy; Z79.899 Other long term (current) drug therapy; K21.9 Gastro-esophageal reflux disease without esophagitis; E66.9 Obesity, unspecified; Z68.38 Body mass index [BMI] 38.0-38.9, adult; Z92.21 Personal history of antineoplastic chemotherapy; Z92.3 Personal history of irradiation; Z90.710 Acquired absence of both cervix and uterus; Z98.84 Bariatric surgery status
CPT/HCPCS: 27447; 97161; 64448; 76942; 88305; 85025; 88311; 73560; C1776; C1713; J2250; J0171; J1100; J0690 ×3; J2405; J3010; J1885; J2795 ×2; J2704; J0735; J1170 ×2

== ENCOUNTER → 2019-12-30 | Outpatient (CLI) | payer MEDICARE ==
--- NOTE | 2020-01-03 09:08 | MM ---
Reason for exam: additional evaluation requested from prior study. Last mammogram was performed 1 year and 2 months ago. History: Patient is postmenopausal, has history of breast cancer at age 63, and history of other cancer. Family history of breast cancer in mother at age 63, breast cancer in paternal aunt at age 63, and breast cancer in daughter at age 41. Malignant MG pre op needle loc RT of the right breast, January 12, 2018. Malignant US biopsy breast VAD RT of the right breast, December 25, 2017. Benign right mammotome panel of the right breast, March 06, 2010. Right US Cyst Aspiration of the right breast, January 08, 2005. Reduction of the right breast, 2002. TRAM Reconstruction of the left breast, 2001. Reduction of the right breast, 1995. Mastectomy of the left breast, 1995. Chemotherapy. Radiation therapy of the left breast. Took hormonal contraceptives for 15 years. Took estrogen for 1 year beginning at age 54. Taking other hormone for 1 year beginning at age 63. Physical Findings: Nurse Summary: 0.3cm nodule in the right breast on scar, has been there since lumpectomy per patient (nurse TM). MG 3D Diag Mammo W/Cad RT CC and MLO view(s) were taken of the right breast. Prior study comparison: October 27, 2018, right breast MG 3d diag mammo w/cad RT. December 25, 2017, right breast MG diagnostic mammo RT wo CAD. There are scattered fibroglandular densities. No significant new findings when compared with previous films. These results were verbally communicated with the patient and result sheet given to the patient on 12/30/19. ASSESSMENT: Benign, BI-RAD 2 RECOMMENDATION: Follow-up diagnostic mammogram of the right breast in 1 year.
== END | disposition home or self-care (01) ==
LOC: RADMAMWWP 14:35
PROVIDERS: ATTEND Family Medicine
DX: Z85.3 Personal history of malignant neoplasm of breast (principal)
CPT/HCPCS: 77065; G0279; 77061

== ENCOUNTER → 2020-01-06 | Outpatient (CLI) | payer MEDICARE ==
[2020-01-06 13:18] VITALS: BP 139/89; PULSE 83; RESP 16; TEMP 98.2
--- NOTE | 2020-01-06 13:23 | P.PN ---
Subjective Progress Note Date: 01/06/20 Principal diagnosis: Bilateral breast; cancer/left mastectomy 1996 with TRAM flap reconstruction in 2007; right breast caner stage IA breast lumpectomy 2017 Bilateral breast cancer Stage IA right breast cancer treated December 2017 Rosey is a 63-year-old female who is status post left mastectomy with TRAM flap reconstruction performed in 2007. She did receive adjuvant chemotherapy and chest wall radiation. In November 2017 a 7 mm lesion was noted in the right breast 3 cm from the nipple in the upper outer quadrant. An ultrasound was performed which revealed that this was a 0.8 cm solid lesion at 11:00. Core biopsy was performed which was consistent with invasive ductal carcinoma. She subsequently underwent a lumpectomy with sentinel node biopsy on . Final pathology revealed a 6 mm focus of invasive ductal carcinoma grade 2 with negative margins. 5 total lymph node nodes were sampled all of which were negative. The patient received whole breast radiation and finished this in February 2018. She tolerated this with only mild skin irritation. The patient was started on letrazole, after which she initially had several urinary tract infections but this has not happened recently. She was complaining of hand and knee pain, she had a right knee replacement October. She is also complaining of a metallic taste in her mouth since she started the letrazole. She has recently been taken off this to see if this improves under the direction of DR. Bourgeois The most recent lesion was a stage IA [id number] ER/KS positive and HER-2 negative grade 1 invasive ductal carcinoma The patient has no complaints at this time. The patient's at 42-year-old daughter was recently diagnosed with breast cancer she was told was stage III disease and is has finished her chemotherapy and radiation therapy. She has now compled her reconstruction. The patient's last right breast mammogram was on 12-30-19 which was benign BIRADS2. At this time the patient has no complaints of any changes in her breasts or her left chest wall. Family history: 1. Mother: Breast cancer 2. father: Liver and skin cancer 3. Daughter: Breast cancer 4. Paternal aunt: Breast cancer 5. Maternal grandfather stomach cancer Patient had genetic testing and told no genetic risk, she saw a genetic counselor. Past surgical history: 1. Left breast mastectomy with TRAM flap reconstruction in 2002 2. Right breast lumpectomy and sentinel node biopsy 3. Partial hysterectomy 4. torn knee meniscus; right knee replacement Medical history: 1. hypothyroid 2. reflux Social history: Smoke: Negative Alcohol: Negative Drugs: Negative Review of systems: Constitutional: Negative HEENT: Wears glasses Lungs: Negative Cardiac: Hypertension GI: Negative : Partial hysterectomy Musculoskeletal: right knee arthritis Psych: negative hematologiic: none Allergies: Seasonal ALLERGIES Objective - Exam BMI 38.5 - Constitutional General appearance: Present: obese - EENT Eyes: Present: EOMI ENT: Present: hearing grossly normal - Neck Neck: Present: normal ROM - Respiratory Respiratory: bilateral: CTA - Cardiovascular Rhythm: regular Heart sounds: normal: S1, S2 - Gastrointestinal General gastrointestinal: Present: normal bowel sounds, soft - Integumentary Integumentary: Present: normal turgor - Musculoskeletal Musculoskeletal: Present: gait normal - Psychiatric Psychiatric: Present: A&O x's 3, appropriate affect, intact judgment & insight - Additional findings Additional findings: Breast exam: BRA 42C inspection: Well-healed scars from prior surgery, ptosis grade 1 bilateral Right breast: Multiple positional exam no dominant masses or nodules of concern Right axilla: No adenopathy of concern Left breast/reconstructed no evidence of chest wall recurrence Left axilla: No adenopathy of concern Assessment and Plan Assessment: Impression: 1. hypothyroid 2. reflux 3. Bilateral breast cancer/left question stage, right stage I No evidence of recurrent cancer 4. Questionable symptoms on letrazole. This has been stopped and patient is following with Dr. Bourgeois Plan: 1. Continue to follow with Dr. Bourgeois Re: Doreen resolved 2. Follow appearance 6 months time 3. Follow-up sooner for any questions of concern 4. right mammogram in 1 year physician exam at that time CC: Dr. Veloz encounter 20 minutes, > 50% of time in planning and counselling
== END | disposition home or self-care (01) ==
LOC: WWCWWP 13:01
PROVIDERS: ATTEND Surgery
DX: Z53.9 Procedure and treatment not carried out, unspecified reason (principal)

== ENCOUNTER → 2020-07-12 | Outpatient (CLI) | payer MEDICARE ==
[2020-07-12 11:08] VITALS: BP 144/84; PULSE 75; RESP 18; TEMP 98.2
--- NOTE | 2020-07-12 11:57 | P.PN ---
Subjective Progress Note Date: 07/12/20 Principal diagnosis: bilateral breast cancer Bilateral breast; cancer/left mastectomy 1995 with TRAM flap reconstruction in 2007; right breast caner stage IA breast lumpectomy 2017 Bilateral breast cancer Stage IA right breast cancer treated December 2017 Rosey is a 63-year-old female who is status post left mastectomy with TRAM flap reconstruction performed in 2007. She did receive adjuvant chemotherapy and chest wall radiation. In November 2017 a 7 mm lesion was noted in the right breast 3 cm from the nipple in the upper outer quadrant. An ultrasound was performed which revealed that this was a 0.8 cm solid lesion at 11:00. Core biopsy was performed which was consistent with invasive ductal carcinoma. She subsequently underwent a lumpectomy with sentinel node biopsy on . Final pathology revealed a 6 mm focus of invasive ductal carcinoma grade 2 with negative margins. 5 total lymph node nodes were sampled all of which were negative. The patient received whole breast radiation and finished this in February 2018. She tolerated this with only mild skin irritation. The patient was started on letrazole, after which she initially had several urinary tract infections but this has not happened recently. She was complaining of hand and knee pain, she had a right knee replacement October. She is also complaining of a metallic taste in her mouth since she started the letrazole. She has recently been taken off this to see if this improves under the direction of DR. Bourgeois, she is not on exemestane and is tolerating this without difficulty. The most recent lesion was a stage IA [id number] ER/IN positive and HER-2 negative grade 1 invasive ductal carcinoma The patient has no complaints at this time. The patient's at 42-year-old daughter was recently diagnosed with breast cancer she was told was stage III disease and is has finished her chemotherapy and radiation therapy. She has now compled her reconstruction. She is doing well at this time. The patient's last right breast mammogram was on 12-30-19 which was benign BIRADS2. At this time the patient has no complaints of any changes in her breasts or her left chest wall. Family history: 1. Mother: Breast cancer 2. father: Liver and skin cancer 3. Daughter: Breast cancer 4. Paternal aunt: Breast cancer 5. Maternal grandfather stomach cancer Patient had genetic testing and told no genetic risk, she saw a genetic counselor. Past surgical history: 1. Left breast mastectomy with TRAM flap reconstruction in 2002 2. Right breast lumpectomy and sentinel node biopsy 3. Partial hysterectomy 4. torn knee meniscus; right knee replacement Medical history: 1. hypothyroid 2. reflux Social history: Smoke: Negative Alcohol: Negative Drugs: Negative Review of systems: Constitutional: Negative HEENT: Wears glasses Lungs: Negative Cardiac: Hypertension GI: Negative : Partial hysterectomy Musculoskeletal: right knee arthritis Psych: negative hematologiic: none Allergies: Seasonal ALLERGIES Objective - Vital Signs Vital signs: Vital Signs Temp 98.2 F 07/12/20 11:05 Pulse 75 07/12/20 11:05 Resp 18 07/12/20 11:05 BP 144/84 07/12/20 11:05 Pulse Ox 97 07/12/20 11:05 Intake & Output 07/11/20 07/12/20 07/12/20 18:59 06:59 18:59 Weight 89.811 kg - Exam BMI 37.4 - Constitutional General appearance: Present: obese - EENT Eyes: Present: EOMI ENT: Present: hearing grossly normal - Neck Neck: Present: normal ROM - Respiratory Respiratory: bilateral: CTA - Cardiovascular Rhythm: regular Heart sounds: normal: S1, S2 - Gastrointestinal General gastrointestinal: Present: normal bowel sounds, soft - Integumentary Integumentary: Present: normal turgor - Musculoskeletal Musculoskeletal: Present: gait normal - Psychiatric Psychiatric: Present: A&O x's 3, appropriate affect - Additional findings Additional findings: breast exam: BRA: 42C inspection: Well-healed scars bilaterally/left breast TRAM flap reconstruction, right breast Jara pattern reduction mammoplasty surgery Palpation: Right breast: Multiple positional exam well-healed scars from prior surgery no dominant masses or nodules of concern Right axilla: No adenopathy of concern Left breast: reconstruction via TRAM flap no evidence of recurrence on chest wall Left axilla: No adenopathy of concern Assessment and Plan Assessment: Impression: 1. Hypothyroid 2. Reflux 3. Status post left breast mastectomy and TRAM flap reconstruction in approximately 2007; right breast lumpectomy and radiation therapy via Jara pattern reduction mammoplasty incision no evidence of recurrent cancer 4. Patient on exemestane 5. Family history of cancer and daughter who is doing well at this time Plan: 1. Repeat right breast mammogram in December 2020 with follow up at that time 2. Continue follow-up with medical oncology 3. follow up here sooner if any questions of concern cc: DR. Luther Veloz encounter 20 minutes, > 50% of time in planning and counselling
== END | disposition home or self-care (01) ==
LOC: WWCWWP 10:38
PROVIDERS: ATTEND Surgery
DX: Z53.9 Procedure and treatment not carried out, unspecified reason (principal)

== ENCOUNTER → 2021-01-10 | Outpatient (CLI) | payer MEDICARE ==
[2021-01-10 13:03] LABS: Prothrombin Time 10.3 sec (9.0-12.0)
[2021-01-10 13:04] LABS: Partial Thromboplastin Time 22.8 sec (22.0-30.0)
[2021-01-10 18:11] LABS: HCT 41.3 % (37.2-46.3); HGB 14.2 g/dL (12.0-15.0); MCHC 34.4 g/dL (32.0-37.0); Mean Platelet Volume 11.6 fL (9.5-12.2); Platelet Count 195 X 10*3/uL (140-440); RBC 4.44 X 10*6/uL (4.10-5.20); RDW 12.8 % (11.5-14.5); WBC 4.24 X 10*3/uL (4.50-10.00)
[2021-01-10 20:23] LABS: Hemoglobin A1C 5.2 % (4.0-6.0)
[2021-01-11 03:47] LABS: Ferritin 53.8 ng/mL (10.0-291.0)
[2021-01-11 04:36] LABS: % Iron Saturation 33.25 (12.00-45.00); ALT 36 U/L (8-44); AST 31 U/L (13-35); African American GFR (CKD) 109.3 (60.0-200.0); Albumin/Globulin Ratio 2.47 (1.60-3.17); Alkaline Phosphatase 144 U/L (41-126); BUN/Creat Ratio 28.33 Ratio (12.00-20.00); Calcium 9.5 mg/dL (8.7-10.3); Carbon Dioxide 24.1 mmol/L (21.6-31.8); Chloride 106 mmol/L (96-109); Chol/HDL Ratio 3.56; Cholesterol 171 mg/dL (0-200); Folate, Serum >24.0 ng/mL; Globulin 1.9 g/dL (1.6-3.3); Glucose 131 mg/dL (70-110); Iron 126 ug/dL (50-170); Magnesium 1.9 mg/dL (1.5-2.4); Non-African American GFR(CKD) 94.3 (60.0-200.0); Phosphorus 3.2 mg/dL (2.4-5.1); Potassium 4.2 mmol/L (3.5-5.5); Sodium 140 mmol/L (135-145); Total Bilirubin 0.6 mg/dL (0.3-1.2); Total Iron Binding Capacity 379 ug/dL (228-460); Total Protein 6.6 g/dL (6.2-8.2)
[2021-01-11 13:12] LABS: Zinc, Serum 71 ug/dL (60-130)
[2021-01-12 10:48] LABS: Anabasine Urine <2.0 ng/mL (<2.0)
== END | disposition home or self-care (01) ==
LOC: LABWHC1 11:11
PROVIDERS: ATTEND Surgery Plastic and Reconstructive Surgery
DX: E66.01 Morbid (severe) obesity due to excess calories (principal); E89.1 Postprocedural hypoinsulinemia; D50.8 Other iron deficiency anemias; E44.0 Moderate protein-calorie malnutrition; E55.9 Vitamin D deficiency, unspecified; K74.1 Hepatic sclerosis; N19 Unspecified kidney failure; K50.90 Crohn's disease, unspecified, without complications; Z71.51 Drug abuse counseling and surveillance of drug abuser; Z98.84 Bariatric surgery status
CPT/HCPCS: 84255; 84134; 84425; 80061; 80053; 82607; 82728; 82525; 82746; 83540; 83550; 83735; 84100; 84443; 84590; 84630; 85027; 85610; 85730; 82306; 83970; 83036; 93005; 36415; G0480; 80323

== ENCOUNTER → 2021-01-29 | Outpatient (CLI) | payer MEDICARE ==
[2021-01-29 18:10] LABS: African American GFR (CKD) >90 (>60 ml/min/1.73 sqM); Blood Urea Nitrogen 17 mg/dL (7-17); Non-African American GFR(CKD) >90 (>60 ml/min/1.73 sqM)
--- NOTE | 2021-01-30 09:12 | CT ---
EXAMINATION TYPE: CT abdomen pelvis w con DATE OF EXAM: 01/29/2021 COMPARISON: 12/29/2018 HISTORY: 66-year-old female K57.32, Diverticulitis, Hx trans-flap reconstruction TECHNIQUE: Contiguous axial scanning of the abdomen and pelvis following administration of 100 ml Iso nilda 300 IV contrast. Delayed images through the kidneys and coronal/sagittal reconstructions perform ed. CT DLP: 1542.10 mGycm Automated exposure control for dose reduction was used. FINDINGS: Heart normal size without pericardial effusion. Mitral annular calcifications noted. Lung bases clear without pleural effusion. Small hiatal hernia. No focal liver lesion or biliary ductal dilatation. Portal venous system is patent. Gallbladder, adrenal glands, kidneys, spleen, and pancreas within normal limits. No dilated small bowel, free fluid, or free air. No mesenteric or retroperitoneal lymphadenopathy. There is a right-sided anterior abdominal wall hernia along the right lower quadrant, possible spigel jamila hernia. The abdominal wall defect measures up to 6.5 cm wide in the hernia sac contains nonobstru cted small bowel loops measuring 10.7 cm wide and 6 cm craniocaudal. Normal appendix. Oral contrast progressed into the distal transverse colon. [id number]-agrjuzhb stool. Sigmoid diverticulosis. Mild wall thickening along the proximal sigmoid colon, axial image 71 but wit hout any surrounding inflammation. Bladder nondistended. Uterus surgically absent. Both ovaries are visualized. No abnormal fluid collec tion in the pelvis or pelvic lymphadenopathy. Pelvic loops. Bones: Mild degenerative change of the hips. Facet arthropathy lower lumbar spine. IMPRESSION: 1. SIGMOID DIVERTICULOSIS. THERE IS MILD WALL THICKENING ALONG THE PROXIMAL SIGMOID COLON BUT NO SURR OUNDING INFLAMMATORY CHANGE. FINDINGS MAY REPRESENT CHRONIC DIVERTICULITIS. AGAIN, NO ACUTE INFLAMMAT ION SEEN. 2. RIGHT LOWER QUADRANT ANTERIOR ABDOMINAL WALL HERNIA, POSSIBLE SPIGELIAN HERNIA MEASURING 10.7 X 6. 0 CM AND CONTAINING SOME NONOBSTRUCTED SMALL BOWEL LOOPS. 3. SMALL HIATAL HERNIA.
== END | disposition home or self-care (01) ==
LOC: RADCTMAIN 17:27
PROVIDERS: ATTEND Surgery Plastic and Reconstructive Surgery
DX: K57.30 Diverticulosis of large intestine without perforation or abscess without bleeding (principal); K43.9 Ventral hernia without obstruction or gangrene; K44.9 Diaphragmatic hernia without obstruction or gangrene
CPT/HCPCS: 82565; 84520; 74177; 36415; Q9967

== ENCOUNTER → 2021-02-11 | Outpatient (CLI) | payer MEDICARE ==
--- NOTE | 2021-02-11 15:05 | MM ---
Reason for exam: additional evaluation requested from prior study. Last mammogram was performed 1 year and 1 month ago. History: Patient is postmenopausal, has history of breast cancer at age 63, and history of other cancer. Family history of breast cancer in mother at age 63, breast cancer in paternal aunt at age 63, and breast cancer in daughter at age 41. Malignant MG pre op needle loc RT of the right breast, January 12, 2018. Malignant US biopsy breast VAD RT of the right breast, December 25, 2017. Benign right mammotome panel of the right breast, March 06, 2010. Right US Cyst Aspiration of the right breast, January 08, 2005. Reduction of the right breast, 2002. TRAM Reconstruction of the left breast, 2001. Reduction of the right breast, 1995. Mastectomy of the left breast, 1995. Chemotherapy. Radiation therapy of the left breast. Took hormonal contraceptives for 15 years. Took estrogen for 1 year beginning at age 54. Taking other hormone for 1 year beginning at age 63. Physical Findings: Nurse did not find any significant physical abnormalities on exam. MG 3D Diag Mammo W/Cad RT CC and MLO view(s) were taken of the right breast. Prior study comparison: December 30, 2019, right breast MG 3d diag mammo w/cad RT. October 27, 2018, right breast MG 3d diag mammo w/cad RT. December 25, 2017, right breast MG diagnostic mammo RT wo CAD. There are scattered fibroglandular densities. Stable calcifications. Palpable marker overlies bio-zorb device. Similar irregular density along the posterior margin of the bio-zorb similar to 01/09/20, suspected scar. Short term follow up recommended. These results were verbally communicated with the patient and result sheet given to the patient on 02/11/21. ASSESSMENT: Probably benign, BI-RAD 3 RECOMMENDATION: Follow-up diagnostic mammogram of the right breast in 6 months.
== END | disposition home or self-care (01) ==
LOC: RADMAMWWP 13:26
PROVIDERS: ATTEND Internal Medicine Hematology & Oncology
DX: N64.89 Other specified disorders of breast (principal); R92.1 Mammographic calcification found on diagnostic imaging of breast; Z80.3 Family history of malignant neoplasm of breast; Z85.3 Personal history of malignant neoplasm of breast
CPT/HCPCS: 77065; G0279; 77061

== ENCOUNTER → 2021-02-21 | Outpatient (CLI) | payer MEDICARE ==
[2021-02-21 13:03] VITALS: BP 128/82; PULSE 75; RESP 18; TEMP 98.5
--- NOTE | 2021-02-21 13:30 | P.PN ---
Subjective Progress Note Date: 02/21/21 Principal diagnosis: bilateral breast cancer; Right mastectomy 1995 with TRAM flap reconstruction 2007, Left stage IA treated with lumpectomy Bilateral breast; cancer/left mastectomy 1995 with TRAM flap reconstruction in 2007; right breast caner stage IA breast lumpectomy 2017 Bilateral breast cancer Stage IA right breast cancer treated December 2017 Rosey is a 63-year-old female who is status post left mastectomy with TRAM flap reconstruction performed in 2007. She did receive adjuvant chemotherapy and chest wall radiation. In November 2017 a 7 mm lesion was noted in the right breast 3 cm from the nipple in the upper outer quadrant. An ultrasound was performed which revealed that this was a 0.8 cm solid lesion at 11:00. Core biopsy was performed which was consistent with invasive ductal carcinoma. She subsequently underwent a lumpectomy with sentinel node biopsy on . Final pathology revealed a 6 mm focus of invasive ductal carcinoma grade 2 with negative margins. 5 total lymph node nodes were sampled all of which were negative. The patient received whole breast radiation and finished this in February 2018. She tolerated this with only mild skin irritation. The patient was started on letrazole, after which she initially had several urinary tract infections but this has not happened recently. She was complaining of hand and knee pain, she had a right knee replacement October. She is also complaining of a metallic taste in her mouth since she started the letrazole. She has recently been taken off this to see if this improves under the direction of DR. Bourgeois, she is now on exemestane and is tolerating this without difficulty. The most recent lesion was a stage IA [id number] ER/MS positive and HER-2 negative grade 1 invasive ductal carcinoma The patient has no complaints at this time. The patient's at 42-year-old daughter was recently diagnosed with breast cancer she was told was stage III disease and is has finished her chemotherapy and radiation therapy. She has now compled her reconstruction. She is doing well at this time. The patient's last right breast mammogram was on 02-11-21 which was BIRADS 3. At this time the patient has no complaints of any changes in her breasts or her left chest wall. Family history: 1. Mother: Breast cancer 2. father: Liver and skin cancer 3. Daughter: Breast cancer 4. Paternal aunt: Breast cancer 5. Maternal grandfather stomach cancer Patient had genetic testing and told no genetic risk, she saw a genetic counselor. Past surgical history: 1. Left breast mastectomy with TRAM flap reconstruction in 2002 2. Right breast lumpectomy and sentinel node biopsy 3. Partial hysterectomy 4. torn knee meniscus; right knee replacement Medical history: 1. hypothyroid 2. reflux Social history: Smoke: Negative Alcohol: Negative Drugs: Negative Review of systems: Constitutional: Negative HEENT: Wears glasses Lungs: Negative Cardiac: Hypertension GI: Negative : Partial hysterectomy Musculoskeletal: right knee arthritis Psych: negative hematologiic: none Allergies: Seasonal ALLERGIES Objective - Vital Signs Vital signs: Vital Signs Temp 98.5 F 02/21/21 13:00 Pulse 75 02/21/21 13:00 Resp 18 02/21/21 13:00 BP 128/82 02/21/21 13:00 Pulse Ox 95 02/21/21 13:00 Intake & Output 02/20/21 02/21/21 02/21/21 18:59 06:59 18:59 Weight 93.894 kg - Exam BMI 39.1 - Constitutional General appearance: Present: cooperative - EENT Eyes: Present: EOMI ENT: Present: hearing grossly normal - Neck Neck: Present: normal ROM - Respiratory Respiratory: bilateral: CTA - Cardiovascular Rhythm: regular Heart sounds: normal: S1, S2 - Gastrointestinal General gastrointestinal: Present: soft - Integumentary Integumentary: Present: normal turgor - Musculoskeletal Musculoskeletal: Present: gait normal - Psychiatric Psychiatric: Present: A&O x's 3, appropriate affect, intact judgment & insight - Additional findings Additional findings: Breast Exam: BRA: 42C Inspection: Postop changes bilateral right breast via reduction mammoplasty incision and left breast TRAM flap reconstruction Palpation: Right breast: Area of BioZorb palpable otherwise no dominant masses or nodules of concern, fibrocystic changes Right axilla: No adenopathy of concern Left breast: Chest wall status post TRAM flap reconstruction no evidence of recurrent cancer Left axilla: No adenopathy of concern Assessment and Plan Assessment: Impression: 1. bilateral breast cancer, left side treated with mastectomy and TRAM flap reconstruction the mastectomy was in 1995 symmetry implant reconstruction wasn't 2008 Right breast pack to me via a reduction mammoplasty incision in 2017, no evidence of recurrent cancer on either side 2. Patient had chemotherapy the first time, is still on exmestane since 2019, status post radiation therapy 3. Recent right breast mammogram recommending 6 month follow-up right breast mammogram Plan: 1. Six-month follow-up right breast mammogram with physician exam at that time 2. follow up radiation therapy 3. follow up medical oncology CC: Dr. Veloz
== END ==
LOC: WWCWWP 12:50
PROVIDERS: ATTEND Surgery
DX: Z08 Encounter for follow-up examination after completed treatment for malignant neoplasm (principal); K21.9 Gastro-esophageal reflux disease without esophagitis; E03.9 Hypothyroidism, unspecified; Z90.12 Acquired absence of left breast and nipple; Z98.82 Breast implant status; Z92.21 Personal history of antineoplastic chemotherapy; Z79.890 Hormone replacement therapy

== ENCOUNTER 2021-02-25 07:46 | Day surgery (SDC) | payer MEDICARE ==
[2021-02-20 15:46] VITALS: BMI 39.1
--- NOTE | 2021-02-25 03:16 | P.GSHP ---
History of Present Illness H&P Date: 02/25/21 CHIEF COMPLAINT: GERD HISTORY OF PRESENT ILLNESS: The patient is a 66-year-old female who presents reports gastroesophageal reflux disease. Upper endoscopy was offered for further evaluation and management. PAST MEDICAL HISTORY: Please see list. PAST SURGICAL HISTORY: Please see list. MEDICATIONS: Please see list. ALLERGIES: Please see list. SOCIAL HISTORY: No illicit drug use FAMILY HISTORY: No reports of Crohn disease or ulcerative colitis. REVIEW OF ORGAN SYSTEMS: CONSTITUTIONAL: No reports of fevers or chills. GI: Denies any blood in stools or constipation. PHYSICAL EXAM: VITAL SIGNS: Stable GENERAL: Well-developed and pleasant in no acute distress. HEENT: No scleral icterus. Extraocular movements grossly intact. Moist buccal mucosa. NECK: Supple without lymphadenopathy. CHEST: Unlabored respirations. Equal bilateral excursions. CARDIOVASCULAR: Regular rate and rhythm. Distal 2+ pulses. ABDOMEN: Soft, nondistended. MUSCULOSKELETAL: No clubbing, cyanosis, or edema. ASSESSMENT: 1. Gastroesophageal reflux disease PLAN: 1. Recommend proceeding with an upper endoscopy Past Medical History Past Medical History: Cancer, GERD/Reflux, Hyperlipidemia, Hypertension, Osteoarthritis (OA), Thyroid Disorder Additional Past Medical History / Comment(s): nolan breast cancer(chemo and radiation-1999) radiation 2018, incisional hernia History of Any Multi-Drug Resistant Organisms: None Reported Past Surgical History: Bariatric Surgery, Breast Surgery, Hysterectomy, Orthopedic Surgery Additional Past Surgical History / Comment(s): lt mastectomy with reconstruction; rt breast lumpectomy 2018; breast reconstructive surgery-trans flap, rt knee arthroscopy, balloon inserted in stomach for wt loss-later removed, nolan cataracts Past Anesthesia/Blood Transfusion Reactions: Family History of Problems w/ Anesthesia Additional Past Anesthesia/Blood Transfusion Reaction / Comment(s): mother had diff time coming out Smoking Status: Never smoker - Past Family History Daughter(s) Family Medical History: Cancer Additional Family Medical History / Comment(s): BREAST Brother(s) Family Medical History: Cancer Mother Family Medical History: Cancer Additional Family Medical History / Comment(s): breast Father Family Medical History: Cancer Additional Family Medical History / Comment(s): skin and liver Medications and Allergies Home Medications Medication Instructions Recorded Confirmed Type amLODIPine [Norvasc] 5 mg PO QAM 09/10/17 02/21/21 History Atorvastatin [Lipitor] 40 mg PO QAM 12/18/17 02/21/21 History Calcium + Vit D(Dose Unknown) 1 tab PO QAM 11/16/19 02/21/21 History Levothyroxine Sodium [Synthroid] 88 mcg PO QAM 11/16/19 02/21/21 History Multivit-Min/Iron/Folic/Lutein 1 each PO QAM 11/16/19 02/21/21 History [Centrum Silver Women Tablet] Exemestane [Aromasin] 25 mg PO QAM 07/12/20 02/21/21 History Escitalopram [Lexapro] 10 mg PO QAM 01/09/21 02/21/21 History Esomeprazole Magnesium [NexIUM] 20 mg PO 02/20/21 02/21/21 History Allergies Allergy/AdvReac Type Severity Reaction Status Date / Time No Known Allergies Allergy Verified 02/21/21 12:57
[~2021-02-25 07:46] MED LIST changes: -ACETAMINOPHEN TAB 500 MG TAB PO ONE; -DEXAMETHASONE SOD PHOSPHATE 10 MG/ML 1 ML VIAL IV ONE; -GABAPENTIN 300 MG CAP PO ONE; -HYDROmorphone 0.5 MG/0.5 ML SYRINGE IVP PRN; -MELOXICAM 7.5 MG TAB PO ONE; -MIDAZOLAM 2 MG/2 ML VIAL IV PRN; -ONDANSETRON 4 MG/2 ML VIAL IVP ONE; -ROPIVACAINE 246.25 MG, EPINEPHrine 0.5 MG, KETOROLAC 30 MG, cloNIDine HCL/PF 80 MCG, WA... MISCELLANE ONE; -TRANEXAMIC ACID 1,000 MG in SODIUM CHLORIDE 0.9% 100 ML IVPB ONE
[2021-02-25 08:07] VITALS: RESP 16; TEMP 97.6
[2021-02-25] MEDS ORDERED: LIDOCAINE 1% (10MG/ML) FOR IV START INTRADERMA ONE (08:20)
[2021-02-25] MEDS ORDERED: PROPOFOL 10 MG/ML 20 ML VIAL IV ONE (09:17)
--- NOTE | 2021-02-25 09:29 | P.PCN ---
Date of Procedure: 02/25/21 Description of Procedure: PREOPERATIVE DIAGNOSIS: Gastroesophageal reflux disease. Morbid obesity. POSTOPERATIVE DIAGNOSIS: Morbid obesity. Gastritis. Gastroesophageal reflux disease. Diaphragmatic hiatal hernia OPERATION: Esophagogastroduodenoscopy with biopsies along antrum. SURGEON: Isabel Mccoy MD ANESTHESIA: MAC. INDICATIONS: The patient is a 66-year-old female who presents with a history of reflux disease. Benefits and risks of the procedure were described. Informed consent was obtained. DESCRIPTION: The patient was brought into the endoscopy suite and laid in the left lateral decubitus position. An Olympus gastroscope was passed along the posterior oropharynx down to the distal esophagus where the squamocolumnar junction was encountered at 34 cm from the incisors. The stomach was entered and no bile reflux was found. Additional findings are listed below. Biopsies with cold f orceps were obtained of the antrum. The first through third portion of the duodenum was examined and unremarkable. Retroflexion of the scope confirmed Hill grade 3 lower esophageal valve. The squamocolumnar junction demonstrated LA grade A erosive esophagitis. The stomach was desufflated. The patient tolerated the procedure well. FINDINGS: Squamocolumnar junction 34 cm from the incisors. Diaphragmatic hiatus at 36 cm. Hiatal hernia, 2 cm Hill grade 2 lower esophageal valve. LA grade A erosive esophagitis. No active duodenitis. Chronic gastritis RECOMMENDATIONS: Upper endoscopy as needed. Plan - Discharge Summary Discharge Rx Participant: No New Discharge Prescriptions: Continue amLODIPine [Norvasc] 5 mg PO QAM Atorvastatin [Lipitor] 40 mg PO QAM Levothyroxine Sodium [Synthroid] 88 mcg PO QAM Multivit-Min/Iron/Folic/Lutein [Centrum Silver Women Tablet] 1 each PO QAM Calcium + Vit D(Dose Unknown) 1 tab PO QAM Exemestane [Aromasin] 25 mg PO QAM Escitalopram [Lexapro] 10 mg PO QAM Esomeprazole Magnesium [NexIUM] 20 mg PO HS Discharge Medication List amLODIPine [Norvasc] 5 mg PO QAM 09/10/17 [History] Atorvastatin [Lipitor] 40 mg PO QAM 12/18/17 [History] Calcium + Vit D(Dose Unknown) 1 tab PO QAM 11/16/19 [History] Levothyroxine Sodium [Synthroid] 88 mcg PO QAM 11/16/19 [History] Multivit-Min/Iron/Folic/Lutein [Centrum Silver Women Tablet] 1 each PO QAM 11/16/19 [History] Exemestane [Aromasin] 25 mg PO QAM 07/12/20 [History] Escitalopram [Lexapro] 10 mg PO QAM 01/09/21 [History] Esomeprazole Magnesium [NexIUM] 20 mg PO HS 02/20/21 [History] [facility]Ref[facility] [place] [facility] Patient Instructions/Handouts: Hiatal Hernia (DC), Gastroesophageal Reflux Disease (DC) Discharge Disposition: HOME SELF-CARE
[2021-02-25 09:53] VITALS: BP 128/78; PULSE 63
== END 2021-02-25 09:55 | disposition home or self-care (01) ==
LOC: ORWHC2ENDO 07:46
PROVIDERS: ATTEND Surgery Plastic and Reconstructive Surgery
DX: K29.70 Gastritis, unspecified, without bleeding (principal); K29.50 Unspecified chronic gastritis without bleeding; K21.9 Gastro-esophageal reflux disease without esophagitis; E66.01 Morbid (severe) obesity due to excess calories; K44.9 Diaphragmatic hernia without obstruction or gangrene; Z79.811 Long term (current) use of aromatase inhibitors; I10 Essential (primary) hypertension; E78.5 Hyperlipidemia, unspecified; E07.9 Disorder of thyroid, unspecified; Z79.890 Hormone replacement therapy
CPT/HCPCS: 43239; 88305; J2704

== ENCOUNTER → 2021-03-11 | Outpatient (CLI) | payer MEDICARE ==
[2021-03-11 13:15] VITALS: BMI 39.9
== END ==
LOC: BARWHC3 08:52
PROVIDERS: ATTEND Surgery Plastic and Reconstructive Surgery
DX: E66.01 Morbid (severe) obesity due to excess calories (principal); Z71.3 Dietary counseling and surveillance; Z68.39 Body mass index [BMI] 39.0-39.9, adult
CPT/HCPCS: 97804

== ENCOUNTER → 2021-04-02 | Outpatient (CLI) | payer MEDICARE ==
--- NOTE | 2021-04-02 12:36 | XR ---
EXAMINATION TYPE: XR chest 2V DATE OF EXAM: 04/02/2021 COMPARISON: None INDICATION: Hypertension TECHNIQUE: Frontal and lateral views of the chest are obtained. FINDINGS: The heart size is normal. The pulmonary vasculature is normal. The lungs are clear. IMPRESSION: 1. No acute pulmonary process.
== END | disposition home or self-care (01) ==
LOC: RADXRMAIN 11:45
PROVIDERS: ATTEND Nurse Practitioner
DX: I10 Essential (primary) hypertension (principal)
CPT/HCPCS: 71046

== ENCOUNTER → 2021-04-30 | Outpatient (CLI) | payer MEDICARE ==
[2021-04-30 12:43] LABS: Basophils % (A) 1 %; Eosinophils # (A) 0.2 k/uL (0-0.7); Eosinophils % (A) 3 %; HGB 15.1 gm/dL (11.4-16.0); Lymphocytes # (A) 1.6 k/uL (1.0-4.8); Lymphocytes % (A) 30 %; MCH 31.9 pg (25.0-35.0); MCHC 33.5 g/dL (31.0-37.0); MCV 95.4 fL (80.0-100.0); Mean Platelet Volume 7.6; Monocytes # (A) 0.3 k/uL (0-1.0); Monocytes % (A) 5 %; Neutrophils # (A) 3.1 k/uL (1.3-7.7); Neutrophils % (A) 59 %; Platelet Count 203 k/uL (150-450); RBC 4.71 m/uL (3.80-5.40); RDW 12.6 % (11.5-15.5); WBC 5.2 k/uL (3.8-10.6)
[2021-04-30 12:57] LABS: ALT 29 U/L (4-34); AST 33 U/L (14-36); African American GFR (CKD) >90 (>60 ml/min/1.73 sqM); Albumin 4.5 g/dL (3.5-5.0); Alkaline Phosphatase 113 U/L (38-126); Anion Gap 11 mmol/L; Blood Urea Nitrogen 22 mg/dL (7-17); Calcium 9.7 mg/dL (8.4-10.2); Carbon Dioxide 22 mmol/L (22-30); Chloride 104 mmol/L (98-107); Glucose 99 mg/dL (74-99); Non-African American GFR(CKD) >90 (>60 ml/min/1.73 sqM); Potassium 4.5 mmol/L (3.5-5.1); Sodium 137 mmol/L (137-145); Total Bilirubin 0.6 mg/dL (0.2-1.3); Total Protein 7.2 g/dL (6.3-8.2)
== END | disposition home or self-care (01) ==
LOC: LABPAT 11:31
PROVIDERS: ATTEND Surgery Plastic and Reconstructive Surgery
DX: Z01.812 Encounter for preprocedural laboratory examination (principal)
CPT/HCPCS: 36415; 80053; 85025; 86850; 86900; 86901

== ENCOUNTER 2021-05-06 12:00 | Inpatient (IN) | payer MEDICARE ==
--- NOTE | 2021-05-06 09:56 | P.GSHP ---
History of Present Illness H&P Date: 05/06/21 CHIEF COMPLAINT: Morbid obesity HISTORY OF PRESENT ILLNESS: Charisse James is a 66-year-old female who comes with lifelong morbid obesity. She is looking into the sleeve gastrectomy. She has tried for dieting including weight watchers in the past with minimal success. She had gastric balloon insertion 3 years ago. She has osteoarthritis of the knees and had right knee replacement and problems with her left knee. She has high blood pressure. Her surgical history is significant for she had the TRAM flap for breast reconstruction on the left. At height of 5 feet 1 inches, her ideal body weight is 131 pounds. Her highest weight was 215 pounds, body mass index 40.7. She comes in 208 pounds. Her body mass index is 39.4. She is 77 pounds overweight. PAST MEDICAL HISTORY: 1. Morbid obesity due to excess calories 2. Body mass index of 40.7, initial 3. Osteoarthritis of the knees. 4. Hypertensive heart disease. 5. Gastroesophageal reflux disease 6. Breast Cancer 7. Anxiety disorder 8. Hyperlipidemia 9. Depressive disorder PAST SURGICAL HISTORY: 1. Left breast reconstruction, TRAM flap 2. Gastric balloon 3. Incisional hernia 4. Right breast lumpectomy 5. Right knee replacement 6. Bilateral cataract extraction 7. Partial hysterectomy HOME MEDICATIONS: Home Medications Medication Instructions Recorded Confirmed amLODIPine [Norvasc] 5 mg PO QAM 09/10/17 05/01/21 Atorvastatin [Lipitor] 40 mg PO QAM 12/18/17 05/01/21 Levothyroxine Sodium [Synthroid] 88 mcg PO QAM 11/16/19 05/01/21 Exemestane [Aromasin] 25 mg PO QAM 07/12/20 05/01/21 Escitalopram [Lexapro] 10 mg PO QAM 01/09/21 05/01/21 Esomeprazole Magnesium [NexIUM] 20 mg PO HS 02/20/21 05/01/21 Advantage Multivitamin 1 dose PO DAILY 05/01/21 Calcium, Magnesium & Vit D3 1 tab PO DAILY 05/01/21 ALLERGIES: Allergies Allergy/AdvReac Type Severity Reaction Status Date / Time No Known Allergies Allergy Verified 05/01/21 09:54 SOCIAL HISTORY: Denies past tobacco use. FAMILY HISTORY: No family history of ulcerative colitis disease or Crohn's disease. Family history of morbid obesity. No lupus in the family. Her grandfather had stomach cancer on her motherside. She has family history of obesity with her mother having weight problems and most of her family. Her sister had the gastric sleeve and is doing well. REVIEW OF ORGAN SYSTEMS: CONSTITUTIONAL: At height of 5 feet 1 inches, her ideal body weight is 131 pounds. Her highest weight was 215 pounds, body mass index 40.7. She comes in 208 pounds. Her body mass index is 39.4. She is 77 pounds overweight. HEENT: Denies any active troubles with vision or hearing. Denies troubles with swallowing. ENDOCRINE: Denies diabetes. Has hypothyroidism. CARDIOVASCULAR: Denies palpitations or heart attacks or chest pain. Has hypertensive heart disease. RESPIRATORY: Denies asthma. Denies chronic obstructive pulmonary disease. GASTROINTESTINAL: Denies any bright red blood per rectum. No diarrhea. No constipation. Has gastroesophageal reflux disease. GENITOURINARY: No recent blood in urine MUSCULOSKELETAL: Has lower back pain and joint pain. Has osteoarthritis of the knees. NEURO: No headaches. No seizure disorders PSYCH: Has depression. No suicidal ideation. Has anxiety. RHEUMATOLOGIC: No lupus. No rheumatoid arthritis. HEMATOLOGIC: Denies any abnormal bleeding or bruising. Denies history of DVTs. SKIN: No rash. No skin cancer. PHYSICAL EXAM: VITAL SIGNS: Height 5 foot 1 inches, weight 208 pounds. BMI 39.4 GENERAL: Well-developed in no acute distress. HEENT: No scleral icterus. Extraocular movements grossly intact. Hears conversational speech. No nasal drainage. NECK: Supple without lymphadenopathy. CHEST: Nonlabored respirations with equal bilateral excursions. CARDIOVASCULAR: Regular rate and regular rhythm. Distal 2+ pulses. ABDOMEN: Obese, soft, nontender, nondistended. MUSCULOSKELETAL: No clubbing, cyanosis. NEURO: No focal or lateralizing signs. Cranial nerves 2 through 12 grossly within normal limits. PSYCH: Appropriate affect. Alert and oriented to person, place and time. SKIN: Good skin turgor. Well perfused. ASSESSMENT: 1. Morbid obesity due to excess calories 2. Body mass index of 40.7, initial 3. Osteoarthritis of the knees. 4. Hypertensive heart disease. 5. Gastroesophageal reflux disease 6. Breast Cancer 7. Anxiety disorder 8. Hyperlipidemia 9. Depressive disorder PLAN: 1. Bariatric options between a sleeve, band and a Jeffrey-en-Y gastric bypass were reviewed in detail. The patient elected for a sleeve gastrectomy. Robotic assisted approach described. 2. The [place] [facility] Data was also reviewed with benefits and risks as described. 3. An 8 page second-generation bariatric consent form was reviewed in detail including potential of bleeding, infection, leaks, adequate weight loss, nu tritional deficiencies which the patient demonstrated understanding of the risks. 4. A 2 week high-protein low caloric 800 kcal diet described to address hepatomegaly. 5. Preoperative labs including complete metabolic panel and CBC with type and screen recommended. 6. DVT prophylaxis per [place] [facility]. 7. Antibiotic prophylaxis. 8. Inpatient hospitalization anticipated for more than 2 nights. 9. All questions and concerns were addressed with the patient. 10. She is at elevated risk for perioperative complications with concurrent oncologic agents and prior history of abdominal surgery such as TRAM flap 11. Overall, patient has expressed understanding of bariatric care including postoperative diet and commitment of lifestyle. Patient should benefit from colette gical intervention for correction of her morbid obesity. Past Medical History Past Medical History: Cancer, GERD/Reflux, Hyperlipidemia, Hypertension, Osteoarthritis (OA), Thyroid Disorder Additional Past Medical History / Comment(s): nolan breast cancer(chemo and radiation-1999) radiation 2018, Hx colon polyps, diverticulosis., pt states current high protein diet per Dr. Mccoy's instructions. History of Any Multi-Drug Resistant Organisms: None Reported Past Surgical History: Bariatric Surgery, Breast Surgery, Hysterectomy, Orthopedic Surgery Additional Past Surgical History / Comment(s): lt mastectomy with reconstruction; rt breast lumpectomy 2018; breast reconstructive surgery-trans flap, rt knee arthroscopy, balloon inserted in stomach for wt loss-later removed, nolan cataracts Past Anesthesia/Blood Transfusion Reactions: No Reported Reaction Additional Past Anesthesia/Blood Transfusion Reaction / Comment(s): mother had diff time coming out Past Psychological History: Anxiety Smoking Status: Never smoker Past Alcohol Use History: Rare Past Drug Use History: None Reported - Past Family History Daughter(s) Family Medical History: Cancer Additional Family Medical History / Comment(s): BREAST CANCER Brother(s) Family Medical History: No Reported History Mother Family Medical History: Cancer Additional Family Medical History / Comment(s): breast cancer Father Family Medical History: Cancer Additional Family Medical History / Comment(s): skin and liver cancer Medications and Allergies Home Medications Medication Instructions Recorded Confirmed Type amLODIPine [Norvasc] 5 mg PO QAM 09/10/17 05/01/21 History Atorvastatin [Lipitor] 40 mg PO QAM 12/18/17 05/01/21 History Levothyroxine Sodium [Synthroid] 88 mcg PO QAM 11/16/19 05/01/21 History Exemestane [Aromasin] 25 mg PO QAM 07/12/20 05/01/21 History Escitalopram [Lexapro] 10 mg PO QAM 01/09/21 05/01/21 History Esomeprazole Magnesium [NexIUM] 20 mg PO HS 02/20/21 05/01/21 History Advantage Multivitamin 1 dose PO DAILY 05/01/21 History Calcium, Magnesium & Vit D3 1 tab PO DAILY 05/01/21 History Allergies Allergy/AdvReac Type Severity Reaction Status Date / Time No Known Allergies Allergy Verified 05/01/21 09:54
[~2021-05-06 12:00] MED LIST changes: +ACETAMINOPHEN TAB 500 MG TAB PO STA; +CHLORHEXIDINE GLUCONATE 15 ML CUP MUCOUS MEM PRN; +DEXAMETHASONE SOD PHOSPHATE 4 MG/ML 1 ML VIAL IV ONE; +ENOXAPARIN 40 MG/0.4 ML SYRINGE SQ PRN; +HYDROmorphone 0.5 MG/0.5 ML SYRINGE IVP PRN; -LACTATED RINGERS 1,000 ML IV SCH; +ONDANSETRON 4 MG/2 ML VIAL IVP ONE; +PANTOPRAZOLE 40 MG/10 ML VIAL IVP PRN
[2021-05-10] MEDS ORDERED: CHLORHEXIDINE GLUCONATE 15 ML CUP MUCOUS MEM PRN (07:00)
[2021-05-10] MEDS ORDERED: PANTOPRAZOLE 40 MG/10 ML VIAL IVP PRN (07:00)
[2021-05-10] MEDS ORDERED: ENOXAPARIN 40 MG/0.4 ML SYRINGE SQ PRN (07:00)
[2021-05-10] MEDS ORDERED: ONDANSETRON 4 MG/2 ML VIAL ONE (12:47)
[2021-05-10] MEDS ORDERED: ACETAMINOPHEN TAB 500 MG TAB ONE (12:50)
[2021-05-10] MEDS ORDERED: DEXAMETHASONE SOD PHOSPHATE 4 MG/ML 1 ML VIAL IVP ONE (12:52)
[2021-05-10] MEDS: LACTATED RINGERS 1,000 ML IV SCH ×3 (12:58→17:34)
[2021-05-10] MEDS ORDERED: LIDOCAINE 1% (10MG/ML) FOR IV START INTRADERMA ONE (12:58)
[2021-05-10] MEDS ORDERED: ROCURONIUM 10 MG/ML (5 ML VIAL) IV ONE (13:15)
[2021-05-10] MEDS ORDERED: KETAMINE 10 MG/ML 20 ML VIAL ONE (13:15)
[2021-05-10] MEDS ORDERED: NEOSTIGMINE 1 MG/ML 10 ML VIAL ONE (13:15)
[2021-05-10] MEDS ORDERED: fentaNYL (PF) 50 MCG/ML 2 ML AMP ONE (13:15)
[2021-05-10] MEDS ORDERED: SUCCINYLCHOLINE CHLORIDE 100 MG/5 ML SYR IV ONE (13:15)
[2021-05-10] MEDS ORDERED: PROPOFOL 10 MG/ML 20 ML VIAL IV ONE (13:15)
[2021-05-10] MEDS ORDERED: GLYCOPYRROLATE 0.2 MG/ML 2 ML VIAL ONE (13:15)
[2021-05-10] MEDS ORDERED: LIDOCAINE 1% INJ 10MG/ML (20 ML MDV) ONE (13:15)
[2021-05-10] MEDS ORDERED: MIDAZOLAM 2 MG/2 ML VIAL ONE (13:15)
[2021-05-10] MEDS ORDERED: BUPIVACAIN-EPI 0.25%-1:200,000 30 ML VIAL SQ ONE ×2 (13:45→13:47)
[2021-05-10] MEDS ORDERED: HYDROmorphone 1 MG/ML 1 ML SYRINGE IVP PRN (15:25)
[2021-05-10] MEDS ORDERED: NALOXONE 0.4 MG/ML 1 ML VIAL IV PRN (15:25)
[2021-05-10] MEDS ORDERED: diphenhydrAMINE 50 MG/ML 1 ML VIAL IVP PRN (15:25)
[2021-05-10] MEDS ORDERED: DEXAMETHASONE SOD PHOSPHATE 10 MG/ML 1 ML VIAL IVP PRN (15:25)
--- NOTE | 2021-05-10 15:34 | P.OP ---
Date of Procedure: 05/10/21 Description of Procedure: SURGEON: EMILY SHARAM MD PREOPERATIVE DIAGNOSES: 1. Morbid obesity due to excess calories 2. Body mass index of 40.7, initial 3. Osteoarthritis of the knees. 4. Hypertensive heart disease. 5. Gastroesophageal reflux disease 6. Breast Cancer 7. Anxiety disorder 8. Hyperlipidemia 9. Depressive disorder POSTOPERATIVE DIAGNOSES: 1. Morbid obesity due to excess calories 2. Body mass index of 40.7, initial 3. Osteoarthritis of the knees. 4. Hypertensive heart disease. 5. Gastroesophageal reflux disease 6. Breast Cancer 7. Anxiety disorder 8. Hyperlipidemia 9. Depressive disorder OPERATION: 1. Robotic assisted daVinci Xi laparoscopic sleeve gastrectomy with 40-Mexican bougie, multiport. 2. Intraoperative esophagogastroduodenoscopy. ANESTHESIA: Gen. local anesthetic ESTIMATED BLOOD LOSS: 5 mL SPECIMENS REMOVED: Sleeve gastrectomy COMPLICATIONS: None. FINDINGS: 1. Negative intraoperative esophagogastrojejunoscopy leak test. 2. No hepatomegaly and no large hiatus hernia. 3. Total of 6 staplers used including 2 - 60 mm blue robot seun and 4 - 60 mm green robot loads used to create the gastric sleeve. 4. Sleeve gastrectomy, 28 x 4 cm INDICATIONS: Charisse James is a 66-year-old female who comes with lifelong morbid obesity. She is looking into the sleeve gastrectomy. She had gastric balloon insertion 3 years ago. She has osteoarthritis of the knees and had right knee replacement and problems with her left knee. She has high blood pressure. Her surgical history is significant for she had the TRAM flap for breast reconstruction on the left. At height of 5 feet 1 inches, her ideal body weight is 131 pounds. Her highest weight was 215 pounds, body mass index 40.7. She comes in 199 pounds. All surgical options for morbid obesity had been described using the [place] [facility] comorbidity resolution including complication risk score. A second-generation bariatric consent form was described in detail including the possibility of protein malnutrition, leaks, gastric stricture, venous thrombosis, gastroesophageal reflux disease, need for further surgery for which she demonstrated understanding. Benefits and risks of the procedure were described at length. Informed consent was obtained. DESCRIPTION: The patient was brought into the operating room theater. Preoperatively she had received Lovenox subcutaneously for DVT prophylaxis. Additionally she had Peridex oral solution as an oral decontaminant. After general induction, the abdomen was prepped and draped in standard sterile fashion. An Ioban draping was placed along the abdomen. A robotic da Bailee Xi system was prepped and primed. At 12 cm from the xiphoid, proposed port sites were marked with indelible marker along the anterior axillary line bilaterally, mid axillary line bilaterally with each ports were marked 10 to 15 cm from each other. The engineer second assistant port was marked along the left lateral abdominal wall. The robotic stapler port was marked for the right midclavicular line. A 5 mm 0 degrees laparoscopic trocar entry was performed along the left upper quadrant. The abdomen was insufflated to 15 mmHg pressure was tolerated well. Diagnostic laparoscopy demonstrated no injury to bowel, viscera, or mesentery. No evidence of large hiatus hernia was identified. The liver edge was sharp consistent with 2 week low-carb high-protein diet. A 8 mm port was placed along the left upper abdominal wall after exchanging the 5 mm port. A separate 8 mm port was placed along the left lateral abdominal wall. Please note that the ports were placed at least 20 cm away from the target anatomy. Care was taken to check each robotic arms were safely away from collision with the bed or the patient. At the epigastrium, a medium sized Clayton liver retractor was placed under direct visualization with the Iron Anode Adjuster placed under the right shoulder of the patient. Next, 12-mm robot stapler port was placed along the right upper quadrant. The camera 8-mm port was maintained along the epigastrium. The patient was repositioned in reverse Trendelenburg position at 21-degrees after lowering the bed. The robot was docked along the left side of the patient. Using a grasper for arm 4, a vessel sealer for arm 3, including grasper for arm 1, the robotic system was docked and primed as described. Instruments were interchanged by the engineer second assistant for stapler loads. The camera was placed at 30- degrees down. I had sat at the console. The pylorus was identified and 6 cm proximally along the greater curvature of the stomach, the short gastrics were mobilized upwards to the angle of His using a vessel sealer. Hemostasis was excellent during this portion of the procedure. Next, the upper pole of the stomach was adherent to the left laina, which was gently dissected free using atraumatic g rasper. I went to the head of the bed and placed 40-Mexican blunt bougie into the stomach. The bougie was readjusted by the nurse tire maker. Robotic stapler green load 60 mm 4 followed by blue 60 mm x 2 loads were used to create the sleeve. Initial firing was across the antrum of the stomach towards the angle of His. The staple line was linear without corkscrewing. The space from the angularis incisura of the sleeve was approximately 4 cm. I then went to the head of the bed to perform the intraoperative esophagogastroduodenoscopy leak test. The bougie was withdrawn. The upper pole of the stomach was bathed using normal saline solution. The scope was withdrawn with careful inspection along the staple line for which no leaks were found along the entire length. Additionally,the sleeve was completely hemostatic without any encroachment along the angularis incisura. Its topology was a soft "J". No stricture was encountered upon placement of the scope. The GI tract was desufflated. The patient tolerated this portion of the procedure well. The scope was completely withdrawn. The robot was undocked. I then rescrubbed into case, whereby the irrigation fluid was aspirated from the abdominal cavity. Tisseel fibrin sealant was placed along the entire staple length. Once dried the Clayton liver retractor was removed. Attention was now brought to removal of the specimen. The distal end of the sleeve gastrectomy specimen was brought out through the 12 mm port at the left upper quadrant. The specimen was gently removed en total. No contamination had occurred during this process. All instruments and pneumoperitoneum including irrigation fluid was removed from the abdominal cavity. The 12 mm port site was closed using 0-Vicryl and Kalia Rajput and irrigated with diluted hydrogen peroxide. The final incisions were closed using subcuticular interrupted suture of 4-0 Monocryl. Exofin was applied to the skin once the skin had been cleansed. OptiFoam dressing was placed along the stomach extraction site. The sleeve specimen was measured and checked also for leaks which none were found. At the end of the procedure, needle, sponge, and instrument count was verified correct by the surgical garment fitter. The patient was taken to the postanesthesia care unit in stable condition. She had tolerated the procedure well.
[2021-05-10] MEDS ORDERED: HYDROmorphone 0.5 MG/0.5 ML SYRINGE IVP ONE (15:37)
[2021-05-10] MEDS: ALBUTEROL NEBULIZED 2.5 MG/3 ML INHALATION SCH ×2 (15:39→21:08)
[2021-05-10] MEDS: 0.9% NACL WITH KCL 20 MEQ/L 1,000 ML IV SCH (18:07)
[2021-05-10] MEDS: ACETAMINOPHEN IV (For NPO) 1,000 MG in EMPTY BAG 1 BAG IVPB SCH (18:07)
[2021-05-10] MEDS: SIMETHICONE 40 MG/0.6 ML DROPS 2,000 MG/30 ML BOTTLE PO SCH (18:11)
[2021-05-10] MEDS: DEXAMETHASONE SOD PHOSPHATE 4 MG/ML 1 ML VIAL IVP SCH (18:16)
[2021-05-11] MEDS: ACETAMINOPHEN IV (For NPO) 1,000 MG in EMPTY BAG 1 BAG IVPB SCH ×2 (00:18→06:29)
[2021-05-11] MEDS: DEXAMETHASONE SOD PHOSPHATE 4 MG/ML 1 ML VIAL IVP SCH ×2 (00:18→05:30)
[2021-05-11] MEDS: SIMETHICONE 40 MG/0.6 ML DROPS 2,000 MG/30 ML BOTTLE PO SCH ×2 (00:19→05:30)
[2021-05-11] MEDS: 0.9% NACL WITH KCL 20 MEQ/L 1,000 ML IV SCH ×2 (01:03→06:31)
[2021-05-11] MEDS: SODIUM CHLORIDE 0.9% 1,000 ML IV SCH ×3 (01:03→08:23)
[2021-05-11 07:40] VITALS: BP 135/71; RESP 16; TEMP 98.2
[2021-05-11] MEDS ORDERED: 1: THIAMINE 100 MG, FOLIC ACID 1 MG, POTASSIUM CHLORIDE 20 MEQ in SODIUM CHLORIDE 0.9% 1 IVPB SCH ×5 (08:00)
[2021-05-11] MEDS ORDERED: PANTOPRAZOLE 40 MG/10 ML VIAL IV SCH (09:00)
[2021-05-11] MEDS ORDERED: ENOXAPARIN 40 MG/0.4 ML SYRINGE SQ SCH (09:00)
--- NOTE | 2021-05-11 09:03 | FL ---
EXAMINATION TYPE: FL UGI DATE OF EXAM: 05/11/2021 COMPARISON: None HISTORY: Postop gastric sleeve TECHNIQUE: A single contrast UGI study is performed. FINDINGS: Contrast passes from the distal esophagus through the gastric sleeve with no significant he sitancy. No extravasation of contrast is evident. Minimal free air is identified on fluoroscopy under the right diaphragm. Overhead radiographs were obtained which are unremarkable. Fluoroscopy time: 56 seconds. Images: 14 IMPRESSIONS: 1. Normal post gastric sleeve without obstruction or hesitancy. No extravasation.
[2021-05-11] MEDS: ALBUTEROL NEBULIZED 2.5 MG/3 ML INHALATION SCH ×2 (09:04→12:20)
--- NOTE | 2021-05-11 09:41 | P.DS ---
Providers Date of admission: 05/10/21 12:00 Expected date of discharge: 05/11/21 Attending physician: Isabel Mccoy Primary care physician: Luther Veloz [facility] Course: Patient admitted for elective robotic sleeve gastrectomy by Dr. Villagomez yesterday. She has done well postoperatively. Today's upper GI shows no evidence of leak or obstruction. Vital signs are stable. Denies any significant pain. Says she did not sleep well last night because of the loud noises. She would like to go home today. We'll begin a clear liquid diet. Discussed with nursing staff that if she tolerates well we'll discharge today. Follow-up one week. Plan - Discharge Summary Discharge Rx Participant: Yes New Discharge Prescriptions: New Omeprazole [PriLOSEC] 40 mg PO DAILY #30 cap Ondansetron Odt [Zofran Odt] 4 mg PO Q8HR PRN #9 tab PRN Reason: Nausea bisacodyL [Dulcolax] 5 mg PO DAILY PRN #10 tab PRN Reason: Constipation Simethicone 40 mg/0.6 ml Drops [Mylicon Drops] 40 mg PO PCHS PRN #30 ml PRN Reason: Gas Acetaminophen Tab [Tylenol Tab] 1,000 mg PO Q6HR PRN #30 tablet PRN Reason: Pain Continue amLODIPine [Norvasc] 5 mg PO QAM Atorvastatin [Lipitor] 40 mg PO QAM Levothyroxine Sodium [Synthroid] 88 mcg PO QAM Escitalopram [Lexapro] 10 mg PO QAM Discontinued Exemestane [Aromasin] 25 mg PO QAM Esomeprazole Magnesium [NexIUM] 20 mg PO HS Advantage Multivitamin 1 dose PO DAILY Calcium, Magnesium & Vit D3 1 tab PO DAILY Discharge Medication List amLODIPine [Norvasc] 5 mg PO QAM 09/10/17 [History] Atorvastatin [Lipitor] 40 mg PO QAM 12/18/17 [History] Levothyroxine Sodium [Synthroid] 88 mcg PO QAM 11/16/19 [History] Escitalopram [Lexapro] 10 mg PO QAM 01/09/21 [History] Acetaminophen Tab [Tylenol Tab] 1,000 mg PO Q6HR PRN #30 tablet 05/10/21 [Rx] Omeprazole [PriLOSEC] 40 mg PO DAILY #30 cap 05/10/21 [Rx] Ondansetron Odt [Zofran Odt] 4 mg PO Q8HR PRN #9 tab 05/10/21 [Rx] Simethicone 40 mg/0.6 ml Drops [Mylicon Drops] 40 mg PO PCHS PRN #30 ml 05/10/21 [Rx] bisacodyL [Dulcolax] 5 mg PO DAILY PRN #10 tab 05/10/21 [Rx] [place] [facility] Patient Instructions/Handouts: *Surgery [facility] - Managing Your Pain After Surgery Without Opioids, Nutrition after Bariatric Surgery (GEN), Bowel Management After Bariatric Surgery (DC), Laparoscopic Sleeve Gastrectomy (DC) Activity/Diet/Wound Care/Special Instructions: Liquid diet only for 2 weeks until May 24 No lifting over 4 pounds in 4 weeks, Jun 09 May Shower. No soaking in bath tubs, until Jun 09 Please notify your surgeon if you develop nausea and vomiting including new onset of abdominal pain. Continue to use incentive spirometry to prevent pneumonias. Please continue to ambulate at home to prevent blood clots in legs. Follow-up at the bariatric center. May shower. Dressings to be discontinued by surgeon in the office. Drink 64 oz of fluid daily. Start protein shakes on . Notify bariatric center for temp over 101.0, increased pain, drainage from incisions. No straws or carbonated beverages. Liquid diet only. Sugar content should be less than 6 g to avoid dumping syndrome. Take MOM for constipation. CRUSH, OPEN, OR CUT TABLETS LARGER THAN A SIZE OF A TIC TAC Discharge Disposition: HOME SELF-CARE
[2021-05-11 12:32] VITALS: PULSE 72
[2021-05-11 12:42] VITALS: BMI 37.7
[2021-05-11 13:52] LABS: Basophils # (A) 0 X 10*3/uL (0.00-0.10); Basophils % (A) 0 %; Eosinophils # (A) 0 X 10*3/uL (0.04-0.35); Eosinophils % (A) 0 %; HCT 40.9 % (37.2-46.3); HGB 14.1 g/dL (12.0-15.0); Lymphocytes # (A) 0.55 X 10*3/uL (0.90-5.00); Lymphocytes % (A) 8.4 %; MCH 31.1 pg (27.0-32.0); MCHC 34.5 g/dL (32.0-37.0); MCV 90.3 fL (80.0-97.0); Mean Platelet Volume 11.8 fL (9.5-12.2); Monocytes # (A) 0.12 X 10*3/uL (0.20-1.00); Monocytes % (A) 1.8 %; Neutrophils # (A) 5.82 X 10*3/uL (1.80-7.70); Neutrophils % (A) 89.3 %; Platelet Count 184 X 10*3/uL (140-440); RBC 4.53 X 10*6/uL (4.10-5.20); RDW 12.6 % (11.5-14.5); WBC 6.52 X 10*3/uL (4.50-10.00)
[2021-05-11 13:54] LABS: African American GFR (CKD) 106.5 (60.0-200.0); Anion Gap 16.2 mmol/L (4.00-12.00); Blood Urea Nitrogen 9.9 mg/dL (9.0-27.0); Calcium 9.3 mg/dL (8.7-10.3); Carbon Dioxide 16.1 mmol/L (21.6-31.8); Magnesium 1.8 mg/dL (1.5-2.4); Non-African American GFR(CKD) 91.9 (60.0-200.0); Phosphorus 3.1 mg/dL (2.4-5.1); Potassium 4.5 mmol/L (3.5-5.5)
[2021-05-12] MEDS ORDERED: bisacodyL 5 MG TABLET.DR PO PRN (08:00)
--- NOTE | 2021-05-12 21:10 | P.CONS ---
History of Present Illness - Reason for Consult Consult date: 05/11/21 Medical management - Chief Complaint Morbid obesity - History of Present Illness 66-year-old female patient with history of hypertension, hyperlipidemia, hypothyroidism, admitted to the hospital with morbid obesity for elective sleeve gastrectomy According to patient she has tried dieting including multiple modalities like work out and Weight Watchers chest been unsuccessful; patient does have history of gastric bloatedness insertion 3 years ago Review of Systems REVIEW OF SYSTEMS: CONSTITUTIONAL: No fever, no malaise, no fatigue. HEENT: No recent visual problems or hearing problems. Denied any sore throat. CARDIOVASCULAR: No chest pain, orthopnea, PND, no palpitations, no syncope. PULMONARY: No shortness of breath, no cough, no hemoptysis. GASTROINTESTINAL: No diarrhea, no nausea, no vomiting, no abdominal pain. NEUROLOGICAL: No headaches, no weakness, no numbness. HEMATOLOGICAL: Denies any bleeding or petechiae. GENITOURINARY: Denies any burning micturition, frequency, or urgency. MUSCULOSKELETAL/RHEUMATOLOGICAL: Denies any joint pain, swelling, or any muscle pain. ENDOCRINE: Denies any polyuria or polydipsia. The rest of the 14-point review of systems is negative. Past Medical History Past Medical History: Cancer, GERD/Reflux, Hyperlipidemia, Hypertension, Ost eoarthritis (OA), Thyroid Disorder Additional Past Medical History / Comment(s): nolan breast cancer(chemo and radiation-1999) radiation 2018, Hx colon polyps, diverticulosis., pt states current high protein diet per Dr. Mccoy's instructions. History of Any Multi-Drug Resistant Organisms: None Reported Past Surgical History: Bariatric Surgery, Breast Surgery, Hysterectomy, Orthopedic Surgery Additional Past Surgical History / Comment(s): lt mastectomy with reconstruction; rt breast lumpectomy 2018; breast reconstructive surgery-trans flap, rt knee arthroscopy, balloon inserted in stomach for wt loss-later removed, nolan cataracts Past Anesthesia/Blood Transfusion Reactions: No Reported Reaction Additional Past Anesthesia/Blood Transfusion Reaction / Comm: mother had diff time coming out Past Psychological History: Anxiety Smoking Status: Never smoker Past Alcohol Use History: Rare Past Drug Use History: None Reported Additional Drug Use History / Comment(s): topical CBD ointment - Past Family History Daughter(s) Family Medical History: Cancer Additional Family Medical History / Comment(s): BREAST CANCER Brother(s) Family Medical History: No Reported History Mother Family Medical History: Cancer Additional Family Medical History / Comment(s): breast cancer Father Family Medical History: Cancer Additional Family Medical History / Comment(s): skin and liver cancer Medications and Allergies Home Medications Medication Instructions Recorded Confirmed Type amLODIPine [Norvasc] 5 mg PO QAM 09/10/17 05/09/21 History Atorvastatin [Lipitor] 40 mg PO QAM 12/18/17 05/10/21 History Levothyroxine Sodium [Synthroid] 88 mcg PO QAM 11/16/19 05/09/21 History Escitalopram [Lexapro] 10 mg PO QAM 01/09/21 05/09/21 History Acetaminophen Tab [Tylenol Tab] 1,000 mg PO Q6HR PRN #30 tablet 05/10/21 Rx Omeprazole [PriLOSEC] 40 mg PO DAILY #30 cap 05/10/21 Rx Ondansetron Odt [Zofran Odt] 4 mg PO Q8HR PRN #9 tab 05/10/21 Rx Simethicone 40 mg/0.6 ml Drops 40 mg PO PCHS PRN #30 ml 05/10/21 Rx [Mylicon Drops] bisacodyL [Dulcolax] 5 mg PO DAILY PRN #10 tab 05/10/21 Rx Allergies Allergy/AdvReac Type Severity Reaction Status Date / Time No Known Allergies Allergy Verified 05/09/21 09:39 Physical Exam Vitals: Vital Signs Temp Pulse Pulse Pulse Resp BP BP 05/11/21 12:31 72 05/11/21 12:22 74 05/11/21 09:13 68 05/11/21 09:04 68 05/11/21 07:07 98.2 F 70 16 135/71 05/11/21 05:00 98.6 F 75 14 139/71 05/11/21 01:46 98.6 F 83 14 143/69 05/10/21 21:09 05/10/21 20:00 97.4 F L 70 14 137/71 05/10/21 17:29 05/10/21 17:15 67 151/75 05/10/21 17:00 69 144/75 05/10/21 16:45 68 137/76 05/10/21 16:30 66 144/79 05/10/21 16:15 97.5 F L 67 16 148/78 05/10/21 16:03 63 16 106/51 05/10/21 15:45 64 16 103/50 05/10/21 15:31 65 16 100/43 05/10/21 15:15 65 16 124/61 05/10/21 15:09 96.8 F L 69 16 123/57 Pulse Ox 05/11/21 12:31 05/11/21 12:22 05/11/21 09:13 05/11/21 09:04 94 L 05/11/21 07:07 94 L 05/11/21 05:00 93 L 05/11/21 01:46 91 L 05/10/21 21:09 93 L 05/10/21 20:00 96 05/10/21 17:29 98 05/10/21 17:15 98 05/10/21 17:00 98 05/10/21 16:45 97 05/10/21 16:30 97 05/10/21 16:15 98 05/10/21 16:03 98 05/10/21 15:45 94 L 05/10/21 15:31 100 05/10/21 15:15 100 05/10/21 15:09 94 L Intake and Output 05/10/21 05/11/21 05/11/21 22:59 06:59 14:59 Intake Total 2050 1220 Output Total 600 1100 Balance 1450 120 Intake: Intake, IV Titration 1950 Amount 0.9% NaCl with KCl 20 Meq 1650 /l 1,000 ml @ 150 mls/hr IV .Q6H40M BUDDY Rx#: [id number] ACETAMINOPHEN IV (For NPO 200 ) 1,000 mg In Empty Bag 1 bag @ 400 mls/hr IVPB Q6H BUDDY Rx#:[id number] ceFAZolin 2 gm In Sodium 100 Chloride 0.9% 50 ml @ 100 mls/hr IVPB Q8H BUDDY Rx#: [id number] Oral 100 1220 Output: Urine 600 1100 Other: Voiding Method Toilet # Voids 1 3 Weight 90.5 kg 90.5 kg - Constitutional General appearance: Present: average body habitus, cooperative, no acute distress - EENT Eyes: Present: anicteric sclerae, EOMI, PERRLA, normal appearance ENT: Present: hearing grossly normal, normal oropharynx Ears: bilateral: normal - Neck Neck: Present: normal ROM. Absent: lymphadenopathy, rigidity, thyromegaly Carotids: negative: bruit present Thyroid: bilateral: normal size, negative: enlarged, nodule - Respiratory Respiratory: bilateral: CTA, negative: rales, rhonchi, wheezing - Cardiovascular Rhythm: regular Heart sounds: normal: S1, S2 Abnormal Heart Sounds: Absent: systolic murmur, diastolic murmur - Gastrointestinal General gastrointestinal: Present: normal bowel sounds, soft. Absent: distended, organomegaly, tenderness - Genitourinary Genitourinary Comment(s): deferred - Integumentary Integumentary: Present: normal turgor. Absent: jaundiced, rash, ulcer - Neurologic Neurologic: Present: CNII-XII intact. Absent: focal deficits - Musculoskeletal Musculoskeletal: Present: gait normal, strength equal bilaterally - Psychiatric Psychiatric: Present: A&O x's 3, appropriate affect, intact judgment & insight Results CBC & Chem 7: 05/11/21 08:18 05/11/21 08:18 Labs: Abnormal Lab Results - Last 24 Hours (Table) 05/11/21 05/11/21 Range/Units 08:18 08:18 Lymphocytes # 0.55 L (0.90-5.00) X 10*3/uL Monocytes # 0.12 L (0.20-1.00) X 10*3/uL Eosinophils # 0 L (0.04-0.35) X 10*3/uL Carbon Dioxide 16.1 L (21.6-31.8) mmol/L Anion Gap 16.20 H (4.00-12.00) mmol/L Assessment and Plan Assessment: 1. Moderate obesity; status post sleeve gastrectomy Patient has a BMI of 40.7; your management 2. Hypertension; continue home dose of Norvasc 5 mg daily 3. Hyperlipidemia; Lipitor 40 mg by mouth daily 4. Hypothyroidism; levothyroxine 88 MCG daily 5. Severe osteoarthritis of knees; weight reduction; pain control 6. Depression; Lexapro 10 mg by mouth nightly DVT prophylaxis; SCDs CODE STATUS; full code
== END 2021-05-11 13:44 | disposition home or self-care (01) | DRG 621 ==
LOC: 2ORMAIN 05-10 12:00 → 4SSUR 05-10 15:13
PROVIDERS: ADMIT Surgery Plastic and Reconstructive Surgery; ATTEND Surgery Plastic and Reconstructive Surgery
PROC: 8E0W4CZ Robotic Assisted Procedure of Trunk Region, Percutaneous Endoscopic Approach (ICD-10-PCS; principal; 2021-05-10 13:05)
PROC: 0DJ08ZZ Inspection of Upper Intestinal Tract, Via Natural or Artificial Opening Endoscopic (ICD-10-PCS; principal; 2021-05-10 13:05)
PROC: 0DB64Z3 Excision of Stomach, Percutaneous Endoscopic Approach, Vertical (ICD-10-PCS; principal; 2021-05-10 13:05)
DX: E66.01 Morbid (severe) obesity due to excess calories (principal); I11.9 Hypertensive heart disease without heart failure; E03.9 Hypothyroidism, unspecified; Z68.37 Body mass index [BMI] 37.0-37.9, adult; E78.5 Hyperlipidemia, unspecified; Z20.822 Contact with and (suspected) exposure to COVID-19; M17.0 Bilateral primary osteoarthritis of knee; K21.9 Gastro-esophageal reflux disease without esophagitis; F41.9 Anxiety disorder, unspecified; F32.9 Major depressive disorder, single episode, unspecified; Z79.890 Hormone replacement therapy; Z79.899 Other long term (current) drug therapy; Z96.651 Presence of right artificial knee joint; Z98.41 Cataract extraction status, right eye; Z98.42 Cataract extraction status, left eye; Z90.711 Acquired absence of uterus with remaining cervical stump; Z90.12 Acquired absence of left breast and nipple; Z85.3 Personal history of malignant neoplasm of breast; Z92.3 Personal history of irradiation; Z92.21 Personal history of antineoplastic chemotherapy; Z87.19 Personal history of other diseases of the digestive system; Z86.010 Personal history of colon polyps; Z98.890 Other specified postprocedural states; Z71.3 Dietary counseling and surveillance; Z83.49 Family history of other endocrine, nutritional and metabolic diseases; Z80.0 Family history of malignant neoplasm of digestive organs; Z80.3 Family history of malignant neoplasm of breast
CPT/HCPCS: 74240; 80051; 82310; 82565; 83735; 84100; 84520; 85025; 86850; 86900; 86901; 87635; 88307; 94640; 94760; 94762

== ENCOUNTER → 2021-05-16 | Outpatient (CLI) | payer MEDICARE ==
[2021-05-16 09:07] VITALS: BP 137/85; PULSE 76; RESP 16; TEMP 97.7
[2021-05-16] MEDS: SODIUM CHLORIDE 0.9% 1,000 ML IV SCH ×2 (09:15→10:15)
== END ==
LOC: PROCWHC3 08:57
PROVIDERS: ATTEND Surgery Plastic and Reconstructive Surgery
DX: E86.0 Dehydration (principal)
CPT/HCPCS: 96360; 96361

== ENCOUNTER → 2021-05-29 | Outpatient (CLI) | payer MEDICARE ==
--- NOTE | 2021-05-29 15:30 | P.BASOAP ---
Subjective Progress Note Date: 05/29/21 She has no problems. She reports appropriate soreness. Protein intake is okay. She is 2 weeks out. Complete Omeprazole. Follow up in 1 month. Assessment/Plan Plan: Date: Initial Weight: 94.489 kg Initial BMI: Current Weight: Current BMI: Type of Surgery: Total Volume in Band: Previous Volume: Volume Removed: Volume Added: Band Size:
[2021-05-29 17:43] VITALS: BP 124/80; PULSE 66; RESP 18; TEMP 98; BMI 36.1
== END ==
LOC: BARWHC3 13:57
PROVIDERS: ATTEND Surgery Plastic and Reconstructive Surgery
DX: E66.01 Morbid (severe) obesity due to excess calories (principal); Z71.3 Dietary counseling and surveillance; Z68.36 Body mass index [BMI] 36.0-36.9, adult
CPT/HCPCS: 97803; G0463; 99211

== ENCOUNTER → 2021-06-14 | Outpatient (CLI) | payer MEDICARE | END | disposition home or self-care (01) | LOC: LABWHC1 12:48 | PROVIDERS: ATTEND Surgery Plastic and Reconstructive Surgery | DX: Z53.9 Procedure and treatment not carried out, unspecified reason (principal) ==

== ENCOUNTER → 2021-06-17 | Outpatient (CLI) | payer MEDICARE ==
[2021-06-17 10:07] LABS: Partial Thromboplastin Time 22.9 sec (22.0-30.0); Prothrombin Time 10.7 sec (9.0-12.0)
[2021-06-17 14:58] LABS: HCT 44.9 % (37.2-46.3); HGB 14.8 g/dL (12.0-15.0); MCH 31.4 pg (27.0-32.0); MCV 95.3 fL (80.0-97.0); Mean Platelet Volume 12.3 fL (9.5-12.2); Platelet Count 145 X 10*3/uL (140-440); RBC 4.71 X 10*6/uL (4.10-5.20); RDW 13.4 % (11.5-14.5); WBC 3.41 X 10*3/uL (4.50-10.00)
[2021-06-17 16:03] LABS: % Iron Saturation 40.01 (12.00-45.00); ALT 27 U/L (8-44); AST 27 U/L (13-35); African American GFR (CKD) 100.1 (60.0-200.0); Albumin 4.4 g/dL (3.8-4.9); Albumin/Globulin Ratio 2.29 (1.60-3.17); Alkaline Phosphatase 132 U/L (41-126); BUN/Creat Ratio 14.27 Ratio (12.00-20.00); Blood Urea Nitrogen 10.3 mg/dL (9.0-27.0); Calcium 9.4 mg/dL (8.7-10.3); Carbon Dioxide 25.2 mmol/L (20.0-27.5); Chloride 106 mmol/L (96-109); Chol/HDL Ratio 3.02 Ratio; Globulin 1.9 g/dL (1.6-3.3); Glucose 94 mg/dL (70-110); Iron 135 ug/dL (50-170); Non-African American GFR(CKD) 86.4 (60.0-200.0); Phosphorus 3.6 mg/dL (2.4-5.1); Potassium 4.5 mmol/L (3.5-5.5); Prealbumin 20.5 mg/dL (18.0-42.0); Sodium 143 mmol/L (135-145); Total Iron Binding Capacity 337 ug/dL (228-460); Total Protein 6.3 g/dL (6.2-8.2)
[2021-06-18 12:54] LABS: Zinc, Serum 88 ug/dL (60-130)
[2021-06-19 06:15] LABS: Vitamin A 49 ug/dL (38-106)
[2021-06-19 07:08] LABS: Vit B1(Thiamine) 91 ug/L (38-122)
== END | disposition home or self-care (01) ==
LOC: LABWHC1 08:46
PROVIDERS: ATTEND Surgery Plastic and Reconstructive Surgery
DX: E89.1 Postprocedural hypoinsulinemia (principal); D50.8 Other iron deficiency anemias; K90.89 Other intestinal malabsorption; E55.9 Vitamin D deficiency, unspecified; K74.1 Hepatic sclerosis; N19 Unspecified kidney failure; K50.90 Crohn's disease, unspecified, without complications
CPT/HCPCS: 36415; 80053; 80061; 82306; 82525; 82607; 82728; 82746; 83036; 83540; 83550; 83735; 83970; 84100; 84134; 84255; 84425; 84443; 84590; 84630; 85027; 85610; 85730

== ENCOUNTER → 2021-08-07 | Outpatient (CLI) | payer MEDICARE ==
[2021-08-07 14:36] VITALS: BP 150/83; PULSE 70; RESP 18; TEMP 98.4; BMI 34.5
--- NOTE | 2021-08-07 15:01 | P.BASOAP ---
Subjective Progress Note Date: 08/07/21 DATE OF SERVICE: 08/07/2021 CHIEF COMPLAINT: Status post sleeve gastrectomy HISTORY OF PRESENT ILLNESS: Charisse James is a 66-year-old female status post sleeve gastrectomy, 05/10/2021. She is 3 months out. She has epigastric discomfort. She is less than 3 months out. She reports pressure along the epigastrium for the last few weeks. She reports textured foods bother her. At height of 5 feet 1 inches, her ideal body weight is 131 pounds. Her highest weight was 215 pounds, body mass index 40.7. She comes in 183 pounds from 190 pounds, 2 months ago. She has lost 8 pounds in 2 months. Her body mass index is 34.6. Lifetime weight loss 32 pounds. Percent excess weight loss lifetime 39%. She is 52 pounds overweight. PHYSICAL EXAM: VITAL SIGNS: Height 5 foot 1 inches, weight 183 pounds. BMI 34.6 Vital Signs Temp 98.4 F 08/07/21 14:33 Pulse 70 08/07/21 14:33 Resp 18 08/07/21 14:33 BP 150/83 08/07/21 14:33 Pulse Ox GENERAL: Well-developed in no acute distress. HEENT: No scleral icterus. Extraocular movements grossly intact. Hears conversational speech. No nasal drainage. NECK: Supple without lymphadenopathy. CHEST: Nonlabored respirations with equal bilateral excursions. CARDIOVASCULAR: Distal 2+ pulses. ABDOMEN: Nontender, nondistended. MUSCULOSKELETAL: No clubbing, cyanosis. NEURO: No focal or lateralizing signs. Cranial nerves 2 through 12 grossly within normal limits. PSYCH: Appropriate affect. Alert and oriented to person, place and time. SKIN: Good skin turgor. Well perfused. LABS: Reviewed. WBC low 3.4. Alkaline phosphatase elevated. ASSESSMENT: 1. Morbid obesity due to excess calories 2. Body mass index of 40.7, initial to 34.6 3. Osteoarthritis of the knees. 4. Hypertensive heart disease. 5. Gastroesophageal reflux disease 6. Breast Cancer 7. Anxiety disorder 8. Hyperlipidemia 9. Depressive disorder 10. Leukopenia 11. Hypertriglyceridemia 12. Right lower quadrant incisional hernia from breast reconstruction 13. Diaphragmatic hiatal hernia 14. Status post sleeve gastrectomy 15. Dehydration due to poor oral intake 16. Epigastric pain PLAN: 1. Recommend Prilosec for 2 weeks for her epigastric pain. 2. Plan for EGD with dilation if no improvement of her symptoms. Objective - Vital Signs Vital signs: Vital Signs Temp 98.4 F 08/07/21 14:33 Pulse 70 08/07/21 14:33 Resp 18 08/07/21 14:33 BP 150/83 08/07/21 14:33 Pulse Ox Intake & Output 08/06/21 08/07/21 08/07/21 18:59 06:59 18:59 Weight 83.007 kg Assessment/Plan Plan: Date: 08/07/21 Initial Weight: 94.489 kg Initial BMI: 39.3 Current Weight: 83.007 kg Current BMI: 34.5 Type of Surgery: Total Volume in Band: Previous Volume: Volume Removed: Volume Added: Band Size:
== END ==
LOC: BARWHC3 13:34
PROVIDERS: ATTEND Surgery Plastic and Reconstructive Surgery
DX: E66.01 Morbid (severe) obesity due to excess calories (principal); M17.0 Bilateral primary osteoarthritis of knee; I11.9 Hypertensive heart disease without heart failure; K21.9 Gastro-esophageal reflux disease without esophagitis; Z68.34 Body mass index [BMI] 34.0-34.9, adult; C50.919 Malignant neoplasm of unspecified site of unspecified female breast; F41.9 Anxiety disorder, unspecified; E78.5 Hyperlipidemia, unspecified; F32.A Depression, unspecified; D72.819 Decreased white blood cell count, unspecified; E78.1 Pure hyperglyceridemia; Z98.890 Other specified postprocedural states; K44.9 Diaphragmatic hernia without obstruction or gangrene; Z98.84 Bariatric surgery status; E86.0 Dehydration
CPT/HCPCS: 97803; G0463; 99211

== ENCOUNTER → 2021-08-15 | Outpatient (CLI) | payer MEDICARE ==
[2021-08-15 13:21] LABS: Prothrombin Time 10.8 sec (9.0-12.0)
[2021-08-15 14:07] LABS: Partial Thromboplastin Time 21.6 sec (22.0-30.0)
[2021-08-15 20:09] LABS: Estimated Average Glucose UNC; HCT 45.3 % (37.2-46.3); HGB 15.2 g/dL (12.0-15.0); MCH 31.5 pg (27.0-32.0); MCHC 33.6 g/dL (32.0-37.0); Mean Platelet Volume 12.3 fL (9.5-12.2); NRBC Per 100 WBC 0 /100 WBCS (0.0-0.0); Platelet Count 95 X 10*3/uL (140-440); RBC 4.82 X 10*6/uL (4.10-5.20); RDW 12.7 % (11.5-14.5); WBC 4.16 X 10*3/uL (4.50-10.00)
[2021-08-15 21:22] LABS: % Iron Saturation 22.93 (12.00-45.00); ALT 26 U/L (8-44); AST 22 U/L (13-35); African American GFR (CKD) 103.9 (60.0-200.0); Albumin 4.9 g/dL (3.8-4.9); Albumin/Globulin Ratio 2.45 (1.60-3.17); Alkaline Phosphatase 127 U/L (41-126); BUN/Creat Ratio 17.86 Ratio (12.00-20.00); Blood Urea Nitrogen 12.5 mg/dL (9.0-27.0); Calcium 9.6 mg/dL (8.7-10.3); Carbon Dioxide 23.6 mmol/L (20.0-27.5); Chloride 104 mmol/L (96-109); Glucose 94 mg/dL (70-110); Iron 87 ug/dL (50-170); Magnesium 2.2 mg/dL (1.5-2.4); Non-African American GFR(CKD) 89.7 (60.0-200.0); Phosphorus 3.6 mg/dL (2.4-5.1); Potassium 4.6 mmol/L (3.5-5.5); Sodium 142 mmol/L (135-145); Total Iron Binding Capacity 379 ug/dL (228-460); Total Protein 6.9 g/dL (6.2-8.2)
[2021-08-15 21:23] LABS: Chol/HDL Ratio 3.03 Ratio; LDL Cholesterol,Calculated 80.9 mg/dL (0.0-131.0); Prealbumin 21.3 mg/dL (18.0-42.0)
[2021-08-15 22:25] LABS: Folate, Serum >20.00 ng/mL (4.40-31.00)
[2021-08-16 14:28] LABS: Zinc, Serum 72 ug/dL (60-130)
== END | disposition home or self-care (01) ==
LOC: LABWHC1 12:03
PROVIDERS: ATTEND Surgery Plastic and Reconstructive Surgery
DX: Z48.89 Encounter for other specified surgical aftercare (principal); D50.8 Other iron deficiency anemias; D50.9 Iron deficiency anemia, unspecified; E55.9 Vitamin D deficiency, unspecified; E66.01 Morbid (severe) obesity due to excess calories; K50.90 Crohn's disease, unspecified, without complications; K74.1 Hepatic sclerosis; K91.2 Postsurgical malabsorption, not elsewhere classified; N19 Unspecified kidney failure; T59.894A Toxic effect of other specified gases, fumes and vapors, undetermined, initial encounter
CPT/HCPCS: 36415; 80053; 80061; 82306; 82525; 82607; 82728; 82746; 83036; 83540; 83550; 83735; 83970; 84100; 84134; 84255; 84425; 84443; 84590; 84630; 85027; 85610; 85730

== ENCOUNTER → 2021-08-15 | Outpatient (CLI) | payer MEDICARE ==
--- NOTE | 2021-08-15 12:12 | MM ---
Reason for exam: follow-up at short interval from prior study. Last mammogram was performed 6 months ago. History: Patient is postmenopausal, has history of breast cancer at age 63, and history of other cancer. Family history of breast cancer in mother at age 63, breast cancer in paternal aunt at age 63, and breast cancer in daughter at age 41. Malignant MG pre op needle loc RT of the right breast, January 12, 2018. Malignant US biopsy breast VAD RT of the right breast, December 25, 2017. Benign right mammotome panel of the right breast, March 06, 2010. Right US Cyst Aspiration of the right breast, January 08, 2005. Reduction of the right breast, 2002. TRAM Reconstruction of the left breast, 2001. Reduction of the right breast, 1995. Mastectomy of the left breast, 1995. Chemotherapy. Radiation therapy of the left breast. Took hormonal contraceptives for 15 years. Took estrogen for 1 year beginning at age 54. Taking other hormone for 6 years beginning at age 63. Physical Findings: Nurse Summary: 1cm nodule in the right breast at 11 o'clock (nurse TM). MG 3D Diag Mammo W/Cad RT CC and MLO view(s) were taken of the right breast. Prior study comparison: February 11, 2021, right breast MG 3d diag mammo w/cad RT. December 30, 2019, right breast MG 3d diag mammo w/cad RT. There are scattered fibroglandular densities. Previous mammotome biopsy in the right breast. Post surgical and post therapy change right breast with biozorb device and some irregular density along posterior margin, unchanged from 12/30/19. No significant new findings when compared with previous films. These results were verbally communicated with the patient and result sheet given to the patient on 08/15/21. ASSESSMENT: Benign, BI-RAD 2 RECOMMENDATION: Follow-up diagnostic mammogram of the right breast in 1 year.
== END | disposition home or self-care (01) ==
LOC: RADMAMWWP 10:56
PROVIDERS: ATTEND Internal Medicine Hematology & Oncology
DX: R92.8 Other abnormal and inconclusive findings on diagnostic imaging of breast (principal); Z85.3 Personal history of malignant neoplasm of breast; Z80.3 Family history of malignant neoplasm of breast; Z78.0 Asymptomatic menopausal state
CPT/HCPCS: 77065; G0279; 77061

== ENCOUNTER → 2021-08-22 | Outpatient (CLI) | payer MEDICARE ==
[2021-08-22 13:05] VITALS: BP 148/82; PULSE 60; RESP 16; TEMP 97.4
--- NOTE | 2021-08-22 13:16 | P.PN ---
Subjective Progress Note Date: 08/22/21 Principal diagnosis: bilateral breast cancer bilateral breast cancer; Right mastectomy 1995 with TRAM flap reconstruction 2007, Left stage IA treated with lumpectomy Bilateral breast; cancer/left mastectomy 1995 with TRAM flap reconstruction in 2007; right breast caner stage IA breast lumpectomy 2017 Bilateral breast cancer Stage IA right breast cancer treated December 2017 Rosey is a 63-year-old female who is status post left mastectomy with TRAM flap reconstruction performed in 2007. She did receive adjuvant chemotherapy and chest wall radiation. In November 2017 a 7 mm lesion was noted in the right breast 3 cm from the nipple in the upper outer quadrant. An ultrasound was performed which revealed that this was a 0.8 cm solid lesion at 11:00. Core biopsy was performed which was consistent with invasive ductal carcinoma. She subsequently underwent a lumpectomy with sentinel node biopsy on . Final pathology revealed a 6 mm focus of invasive ductal carcinoma grade 2 with negative margins. 5 total lymph node nodes were sampled all of which were negative. The patient received whole breast radiation and finished this in February 2018. She tolerated this with only mild skin irritation. The patient was started on letrazole, after which she initially had several urinary tract infections but this has not happened recently. She was complaining of hand and knee pain, she had a right knee replacement October. She is also complaining of a metallic taste in her mouth since she started the letrazole. She has recently been taken off this to see if this improves under the direction of DR. Bourgeois, she is now on exemestane and is tolerating this without difficulty. The most recent lesion was a stage IA [id number] ER/NH positive and HER-2 negative grade 1 invasive ductal carcinoma The patient's at 42-year-old daughter was recently diagnosed with breast cancer she was told was stage III disease and is has finished her chemotherapy and radiation therapy. She has now compled her reconstruction. She is doing well at this time. The patient's last right breast mammogram was on 02-11-21 which was BIRADS 3. 08-22-[address] Bourgeois 08-19-21 reviewed; (continue aromasin) mammogram on 02-10-21 probably benign right breast repeat in 6 months Patient is not complaining of any new lumps masses or nodules of concern in her breast nor on her chest wall. Her daughter is doing well at this time. Family history: 1. Mother: Breast cancer 2. father: Liver and skin cancer 3. Daughter: Breast cancer 4. Paternal aunt: Breast cancer 5. Maternal grandfather stomach cancer Patient had genetic testing and told no genetic risk, she saw a genetic counselor. Past surgical history: 1. Left breast mastectomy with TRAM flap reconstruction in 2002 2. Right breast lumpectomy and sentinel node biopsy 3. Partial hysterectomy 4. torn knee meniscus; right knee replacement 5. gastric sleeve; lost 27 pounds done in April 2021 Medical history: 1. hypothyroid 2. reflux Social history: Smoke: Negative Alcohol: Negative Drugs: Negative Review of systems: Constitutional: Negative HEENT: Wears glasses Lungs: Negative Cardiac: Hypertension GI: Negative : Partial hysterectomy Musculoskeletal: right knee arthritis Psych: negative hematologiic: none Allergies: Seasonal ALLERGIES Objective - Vital Signs Vital signs: Vital Signs Temp 97.4 F L 08/22/21 13:02 Pulse 60 08/22/21 13:02 Resp 16 08/22/21 13:02 BP 148/82 08/22/21 13:02 Pulse Ox Intake & Output 08/21/21 08/22/21 08/22/21 18:59 06:59 18:59 Weight 83.007 kg - Exam BMI 34.6 - Constitutional General appearance: Present: cooperative - EENT Eyes: Present: EOMI ENT: Present: hearing grossly normal - Neck Neck: Present: normal ROM - Respiratory Respiratory: bilateral: CTA - Cardiovascular Rhythm: regular Heart sounds: normal: S1, S2 - Gastrointestinal General gastrointestinal: Present: soft - Integumentary Integumentary: Present: normal turgor - Musculoskeletal Musculoskeletal: Present: gait normal - Psychiatric Psychiatric: Present: A&O x's 3, appropriate affect, intact judgment & insight - Additional findings Additional findings: Breast Exam; BRA: 40B Inspection: Postop changes bilaterally in the breast, well-healed scars from prior surgery Palpation: Right breast: Multi-positional exam robins pattern reduction mammoplasty incisions noted well-healed, no dominant masses or nodules of concern Right axilla: No adenopathy of concern Left breast: Reconstructive breast Evidence of recurrent cancer Left axilla: No adenopathy of concern Assessment and Plan Assessment: Impression: Patient status post left breast mastectomy with reconstruction no evidence of recurrent cancer Patient status post right breast lumpectomy/radiation therapy no evidence of recurrent cancer Recent right breast mammogram benign Plan: Continue Aromasin Repeat right breast mammogram in 1 year Follow-up examination here in 6 months CC: Dr. Veloz
== END ==
LOC: WWCWWP 12:48
PROVIDERS: ATTEND Surgery
DX: Z08 Encounter for follow-up examination after completed treatment for malignant neoplasm (principal); Z98.890 Other specified postprocedural states; Z85.3 Personal history of malignant neoplasm of breast; Z90.13 Acquired absence of bilateral breasts and nipples; E03.9 Hypothyroidism, unspecified; Z80.3 Family history of malignant neoplasm of breast

== ENCOUNTER → 2021-12-06 | Outpatient (CLI) | payer MEDICARE ==
[2021-12-06 10:22] LABS: Partial Thromboplastin Time 23.8 sec (22.0-30.0)
[2021-12-06 14:13] LABS: HCT 44.7 % (37.2-46.3); HGB 14.7 g/dL (12.0-15.0); MCHC 32.9 g/dL (32.0-37.0); MCV 94.3 fL (80.0-97.0); Mean Platelet Volume 11.7 fL (9.5-12.2); NRBC Per 100 WBC 0 /100 WBCS (0.0-0.0); Platelet Count 171 X 10*3/uL (140-440); RBC 4.74 X 10*6/uL (4.10-5.20); RDW 12.9 % (11.5-14.5); WBC 4.03 X 10*3/uL (4.50-10.00)
[2021-12-06 14:48] LABS: % Iron Saturation 31.66 (12.00-45.00); ALT 21 U/L (8-44); AST 20 U/L (13-35); African American GFR (CKD) 103.2 (60.0-200.0); Albumin 4.7 g/dL (3.8-4.9); Albumin/Globulin Ratio 2.49 (1.60-3.17); Alkaline Phosphatase 112 U/L (41-126); BUN/Creat Ratio 24.15 Ratio (12.00-20.00); Calcium 9.6 mg/dL (8.7-10.3); Carbon Dioxide 27.2 mmol/L (20.0-27.5); Chloride 107 mmol/L (96-109); Ferritin 66.9 ng/mL (10.0-291.0); Globulin 1.9 g/dL (1.6-3.3); Glucose 95 mg/dL (70-110); Iron 121 ug/dL (50-170); Phosphorus 3.2 mg/dL (2.4-5.1); Potassium 4.8 mmol/L (3.5-5.5); Sodium 144 mmol/L (135-145); Total Iron Binding Capacity 382 ug/dL (228-460); Total Protein 6.5 g/dL (6.2-8.2)
[2021-12-06 15:35] LABS: Chol/HDL Ratio 2.86 Ratio; LDL Cholesterol,Calculated 83.9 mg/dL (0.0-131.0); Prealbumin 21.5 mg/dL (18.0-42.0)
== END | disposition home or self-care (01) ==
LOC: LABWHC1 08:25
PROVIDERS: ATTEND Surgery Plastic and Reconstructive Surgery
DX: E66.1 Drug-induced obesity (principal); E89.1 Postprocedural hypoinsulinemia; D50.8 Other iron deficiency anemias; K91.2 Postsurgical malabsorption, not elsewhere classified; E44.0 Moderate protein-calorie malnutrition; E55.9 Vitamin D deficiency, unspecified; N19 Unspecified kidney failure; T56.894A Toxic effect of other metals, undetermined, initial encounter; K50.90 Crohn's disease, unspecified, without complications
CPT/HCPCS: 36415; 80053; 80061; 82306; 82525; 82607; 82728; 82746; 83036; 83540; 83550; 83735; 83970; 84100; 84134; 84255; 84425; 84443; 84590; 84630; 85027; 85610; 85730

== ENCOUNTER → 2022-03-28 | Outpatient (CLI) | payer MEDICARE ==
[2022-03-28 11:22] LABS: African American GFR (CKD) >90 (>60 ml/min/1.73 sqM); Blood Urea Nitrogen 20 mg/dL (7-17); Non-African American GFR(CKD) 89 (>60 ml/min/1.73 sqM)
--- NOTE | 2022-03-28 12:47 | CT ---
EXAMINATION TYPE: CT abdomen pelvis w con DATE OF EXAM: 03/28/2022 HISTORY: Diverticulitis. Pain. CT DLP: 1111mGycm Automated Exposure Control for Dose Reduction was Utilized. CONTRAST: CT scan of the abdomen and pelvis is performed with limited oral and with IV Contrast, patient inject ed with 70 mL of Isovue 300. COMPARISON: CT a/p dated 01/29/2021 and older studies. FINDINGS: LUNG BASES: No significant abnormality is appreciated. LIVER/GB: No significant abnormality is appreciated. PANCREAS: No significant abnormality is seen. SPLEEN: No significant abnormality is seen. ADRENALS: No significant abnormality is seen. KIDNEYS: No significant abnormality is seen. BOWEL: Interval surgical changes from gastric sleeve procedure. No suspicious small or large bowel di latation is seen. Suboptimal evaluation distal ball with focal moderate wall thickening near the hepa tic flexure axial image 45 for reference. Wandering cecum on current study axial image 41. Diverticul a in the sigmoid colon left pelvis are present. No CT evidence for acute diverticulitis. Right lower quadrant wide neck hernia or eventration containing small bowel loop axial image 67 is redemonstrated . UTERUS/ADNEXA: Uterus is surgically absent. Scattered pelvic phlebolith are seen. LYMPH NODES: No greater than 1cm abdominal or pelvic lymph nodes are appreciated. OSSEOUS STRUCTURES: Multilevel facet arthropathy in the mid lower lumbar spine. Mild to moderate ante rior spurring L4-L5 level redemonstrated. OTHER: Mild to moderate calcified plaque of the aorta extends to branch vessels. IMPRESSION: Sigmoid colonic diverticulosis redemonstrated without CT evidence for acute diverticuliti s currently. Current study shows focal moderate wall thickening of the hepatic flexure, cannot exclude colitis at this level. Correlate clinically
== END | disposition home or self-care (01) ==
LOC: RADCTMAIN 10:24
PROVIDERS: ATTEND Surgery Plastic and Reconstructive Surgery
DX: K57.30 Diverticulosis of large intestine without perforation or abscess without bleeding (principal)
CPT/HCPCS: 82565; 84520; 74177; 36415; Q9967

== ENCOUNTER 2022-06-02 07:23 | Day surgery (SDC) | payer MEDICARE ==
[~2022-06-02 07:23] MED LIST changes: -ACETAMINOPHEN TAB 500 MG TAB PO STA; -CHLORHEXIDINE GLUCONATE 15 ML CUP MUCOUS MEM PRN; -DEXAMETHASONE SOD PHOSPHATE 4 MG/ML 1 ML VIAL IV ONE; -ENOXAPARIN 40 MG/0.4 ML SYRINGE SQ PRN; -HYDROmorphone 0.5 MG/0.5 ML SYRINGE IVP PRN; +LACTATED RINGERS 1,000 ML IV SCH; +LIDOCAINE 1% (10MG/ML) FOR IV START INTRADERMA PRN; -ONDANSETRON 4 MG/2 ML VIAL IVP ONE; -PANTOPRAZOLE 40 MG/10 ML VIAL IVP PRN
[2022-06-02 07:39] VITALS: TEMP 98.6
[2022-06-02] MEDS ORDERED: PROPOFOL 10 MG/ML 20 ML VIAL IV ONE (08:03)
--- NOTE | 2022-06-02 08:24 | P.GSHP ---
History of Present Illness H&P Date: 06/02/22 CHIEF COMPLAINT: Colon screen HISTORY OF PRESENT ILLNESS: The patient is a 67-year-old female who presents for colon screen. Lower endoscopy was offered for further evaluation and management. PAST MEDICAL HISTORY: Please see list. PAST SURGICAL HISTORY: Please see list. MEDICATIONS: Please see list. ALLERGIES: Please see list. SOCIAL HISTORY: No illicit drug use FAMILY HISTORY: No reports of Crohn disease or ulcerative colitis. REVIEW OF ORGAN SYSTEMS: CONSTITUTIONAL: No reports of fevers or chills. PHYSICAL EXAM: VITAL SIGNS: Stable GENERAL: Well-developed pleasant in no acute distress. HEENT: No scleral icterus. Extraocular movements grossly intact. Moist buccal mucosa. NECK: Supple without lymphadenopathy. CHEST: Unlabored respirations. Equal bilateral excursions. CARDIOVASCULAR: Regular rate and rhythm. Distal 2+ pulses. ABDOMEN: Soft, nontender, nondistended. MUSCULOSKELETAL: No clubbing, cyanosis, or edema. ASSESSMENT: 1. Colon screen. PLAN: 1. Recommend proceeding with a lower endoscopy Past Medical History Past Medical History: Cancer, GERD/Reflux, Hyperlipidemia, Hypertension, Osteoarthritis (OA), Thyroid Disorder Additional Past Medical History / Comment(s): nolan breast cancer(chemo and radiation-1999) radiation 2018, Hx colon polyps, diverticulosis., pt states current high protein diet per Dr. Mccoy's instructions. arthritis knees History of Any Multi-Drug Resistant Organisms: None Reported Past Surgical History: Bariatric Surgery, Breast Surgery, Hysterectomy, Orthopedic Surgery Additional Past Surgical History / Comment(s): lt mastectomy with reconstruction; rt breast lumpectomy 2017; breast reconstructive surgery-trans flap, rt knee arthroscopy, balloon inserted in stomach for wt loss-later removed, nolan cataracts. gastric sleeve apr 2021 Past Anesthesia/Blood Transfusion Reactions: No Reported Reaction Additional Past Anesthesia/Blood Transfusion Reaction / Comment(s): mother had diff time coming out Smoking Status: Never smoker - Past Family History Daughter(s) Family Medical History: Cancer Additional Family Medical History / Comment(s): BREAST CANCER Brother(s) Family Medical History: No Reported History Mother Family Medical History: Cancer Additional Family Medical History / Comment(s): breast cancer Father Family Medical History: Cancer Additional Family Medical History / Comment(s): skin and liver cancer Medications and Allergies Home Medications Medication Instructions Recorded Confirmed Type Atorvastatin [Lipitor] 40 mg PO QAM 12/18/17 06/02/22 History Levothyroxine Sodium [Synthroid] 88 mcg PO QAM 11/16/19 06/02/22 History Escitalopram [Lexapro] 10 mg PO QAM 01/09/21 06/02/22 History Acetaminophen Tab [Tylenol Tab] 1,000 mg PO Q6HR PRN #30 tablet 05/10/21 05/30/22 Rx Exemestane [Aromasin] 25 mg PO DAILY 11/06/21 06/02/22 History Calcium Carbonate [Calcium] 600 mg PO DAILY 02/21/22 06/02/22 History Cyanocobalamin (Vitamin B-12) 1,000 mcg PO DAILY 05/30/22 06/02/22 History [Vitamin B-12] Pregabalin [Lyrica] 50 mg PO BID 05/30/22 06/02/22 History Unk Multi Vitamin 1 tab PO DAILY 05/30/22 05/30/22 History Allergies Allergy/AdvReac Type Severity Reaction Status Date / Time No Known Allergies Allergy Verified 06/02/22 07:36 Surgical - Exam Vital Signs Temp Pulse Resp BP Pulse Ox 98.6 F 71 18 156/75 96 06/02/22 07:38 06/02/22 07:38 06/02/22 07:38 06/02/22 07:38 06/02/22 07:38
[2022-06-02 08:32] VITALS: RESP 16
--- NOTE | 2022-06-02 08:32 | P.PCN ---
Date of Procedure: 06/02/22 Description of Procedure: PREOPERATIVE DIAGNOSIS: Colonoscopy screening POSTOPERATIVE DIAGNOSIS: Severe sigmoid diverticulosis Transverse colon polyp OPERATION: Colonoscopy to the ileocecal valve and appendiceal orifice, cecum Colonoscopy with cold forceps biopsy SURGEON: Isabel Mccoy MD. ANESTHESIA: MAC. INDICATIONS: The patient is an 67-year-old male who presents colonoscopy. Last colonoscopy 5 years. Benefits and risks were described and informed consent was obtained. DESCRIPTION OF PROCEDURE: The patient had undergone Suprep prep. The patient had been brought into the operating room and laid in the left lateral decubitus position. After adequate intravenous sedation, the rectum was examined with 2% lidocaine jelly. External hemorrhoids were encountered. The rectal tone was within normal limits. No lesions were palpated in the rectal vault. An Olympus colonoscope was advanced until the cecum, ileocecal valve and appendiceal orifice were clearly viewed. The prep was excellent. Sigmoid diverticulosis was encountered. Colonic polyps were found and removed. No evidence of focal colitis was found. Retroflexion of the scope demonstrated grade 2 internal hemorrhoids without active bleeding or inflammation. The colon was desufflated. The patient had tolerated the procedure well. Withdrawal time was over 6 minutes. FINDINGS: Aronchick preparation quality scale 1 (1-5) Internal hemorrhoids, grade 2 External hemorrhoids, grade 2. No arteriovenous malformations. Sigmoid diverticulosis Removal of 2 polyps: - Cold forceps biopsy at mid transverse colon 2, 3 to 5 mm polyps. No focal colitis. RECOMMENDATIONS: Repeat colonoscopy for 5 years, 2026 Plan - Discharge Summary Discharge Rx Participant: No New Discharge Prescriptions: Continue Atorvastatin [Lipitor] 40 mg PO QAM Levothyroxine Sodium [Synthroid] 88 mcg PO QAM Escitalopram [Lexapro] 10 mg PO QAM Exemestane [Aromasin] 25 mg PO DAILY Cyanocobalamin (Vitamin B-12) [Vitamin B-12] 1,000 mcg PO DAILY Acetaminophen Tab [Tylenol] 1,000 mg PO Q6HR PRN #30 tablet PRN Reason: Pain Calcium Carbonate [Calcium] 600 mg PO DAILY Pregabalin [Lyrica] 50 mg PO BID Unk Multi Vitamin 1 tab PO DAILY Discharge Medication List Atorvastatin [Lipitor] 40 mg PO QAM 12/18/17 [History] Levothyroxine Sodium [Synthroid] 88 mcg PO QAM 11/16/19 [History] Escitalopram [Lexapro] 10 mg PO QAM 01/09/21 [History] Acetaminophen Tab [Tylenol] 1,000 mg PO Q6HR PRN #30 tablet 05/10/21 [Rx] Exemestane [Aromasin] 25 mg PO DAILY 11/06/21 [History] Calcium Carbonate [Calcium] 600 mg PO DAILY 02/21/22 [History] Cyanocobalamin (Vitamin B-12) [Vitamin B-12] 1,000 mcg PO DAILY 05/30/22 [History] Pregabalin [Lyrica] 50 mg PO BID 05/30/22 [History] Unk Multi Vitamin 1 tab PO DAILY 05/30/22 [History] Follow up Appointment(s)/Referral(s): Isabel Mccoy MD [STAFF PHYSICIAN] - 06/17/22 Patient Instructions/Handouts: Diverticulosis Diet (GEN), Diverticulosis (DC), Diverticulitis (GEN), Colorectal Polyps (GEN) Activity/Diet/Wound Care/Special Instructions: Repeat colonoscopy 5 years, 2026 Discharge Disposition: HOME SELF-CARE
[2022-06-02 08:44] VITALS: BP 108/57; PULSE 61
== END 2022-06-02 09:20 | disposition home or self-care (01) ==
LOC: ORWHC2ENDO 07:23
PROVIDERS: ATTEND Surgery Plastic and Reconstructive Surgery
DX: Z12.11 Encounter for screening for malignant neoplasm of colon (principal); K63.5 Polyp of colon; K57.30 Diverticulosis of large intestine without perforation or abscess without bleeding; K64.1 Second degree hemorrhoids; K64.4 Residual hemorrhoidal skin tags; I10 Essential (primary) hypertension; E78.5 Hyperlipidemia, unspecified; K21.9 Gastro-esophageal reflux disease without esophagitis; M19.90 Unspecified osteoarthritis, unspecified site; E07.9 Disorder of thyroid, unspecified; Z87.19 Personal history of other diseases of the digestive system; Z90.12 Acquired absence of left breast and nipple; Z80.3 Family history of malignant neoplasm of breast; Z79.811 Long term (current) use of aromatase inhibitors; Z79.899 Other long term (current) drug therapy
CPT/HCPCS: 88305; 45380; J2704

== ENCOUNTER → 2022-06-09 | Outpatient (CLI) | payer MEDICARE ==
[2022-06-09 12:09] LABS: Partial Thromboplastin Time 23.5 sec (22.0-30.0); Prothrombin Time 10.7 sec (9.0-12.0)
[2022-06-09 17:51] LABS: HCT 44.3 % (37.2-46.3); HGB 15.4 g/dL (12.0-15.0); MCH 32.8 pg (27.0-32.0); MCHC 34.8 g/dL (32.0-37.0); MCV 94.5 fL (80.0-97.0); Mean Platelet Volume 11.8 fL (9.5-12.2); NRBC Per 100 WBC 0 /100 WBCS (0.0-0.0); Platelet Count 172 X 10*3/uL (140-440); RBC 4.69 X 10*6/uL (4.10-5.20); RDW 12.7 % (11.5-14.5)
[2022-06-09 18:41] LABS: % Iron Saturation 28.38 (12.00-45.00); ALT 21 U/L (8-44); AST 23 U/L (13-35); African American GFR (CKD) 85.2 (60.0-200.0); Albumin 4.8 g/dL (3.8-4.9); Albumin/Globulin Ratio 2.55 (1.60-3.17); Alkaline Phosphatase 116 U/L (41-126); BUN/Creat Ratio 17.56 Ratio (12.00-20.00); Blood Urea Nitrogen 14.4 mg/dL (9.0-27.0); Calcium 9.9 mg/dL (8.7-10.3); Carbon Dioxide 25.5 mmol/L (20.0-27.5); Chloride 104 mmol/L (96-109); Globulin 1.9 g/dL (1.6-3.3); Glucose 68 mg/dL (70-110); Iron 116 ug/dL (50-170); Non-African American GFR(CKD) 73.5 (60.0-200.0); Phosphorus 2.8 mg/dL (2.4-5.1); Potassium 4.4 mmol/L (3.5-5.5); Sodium 142 mmol/L (135-145); Total Iron Binding Capacity 409 ug/dL (228-460); Total Protein 6.6 g/dL (6.2-8.2)
[2022-06-09 18:54] LABS: Chol/HDL Ratio 3.01 Ratio; LDL Cholesterol,Calculated 85.1 mg/dL (0.0-131.0)
[2022-06-10 12:09] LABS: Zinc, Serum 81 ug/dL (60-130)
[2022-06-11 11:58] LABS: Vit B1(Thiamine) 79 ug/L (38-122)
== END | disposition home or self-care (01) ==
LOC: LABWHC1 10:48
PROVIDERS: ATTEND Surgery Plastic and Reconstructive Surgery
DX: T56.894A Toxic effect of other metals, undetermined, initial encounter (principal); E89.1 Postprocedural hypoinsulinemia; E66.01 Morbid (severe) obesity due to excess calories; D50.8 Other iron deficiency anemias; K91.2 Postsurgical malabsorption, not elsewhere classified; E44.0 Moderate protein-calorie malnutrition; E45 Retarded development following protein-calorie malnutrition; E55.9 Vitamin D deficiency, unspecified; K74.1 Hepatic sclerosis; N19 Unspecified kidney failure; K50.90 Crohn's disease, unspecified, without complications
CPT/HCPCS: 36415; 80053; 80061; 82306; 82525; 82607; 82746; 83036; 83540; 83550; 83735; 83970; 84100; 84134; 84255; 84425; 84443; 84590; 84630; 85027; 85610; 85730

== ENCOUNTER → 2022-11-06 | Outpatient (CLI) | payer MEDICARE ==
--- NOTE | 2022-11-06 11:45 | P.SLEEP ---
History of Present Illness DATE: 11/06/2022 CONSULTATION/NEW PATIENT EVALUATION HISTORY OF PRESENT ILLNESS/SLEEP-WAKE EVALUATION: 67-year-old lady had been ev aluated in the sleep center for possible obstructive sleep apnea hypopnea syndrome and difficulties to initiate sleep. SLEEP SCHEDULE: Usually sleep schedule from 11 PM to 8 AM. FALLING ASLEEP: Patient has difficulties to fall asleep, although no TV in bedroom. DURING SLEEP: Patient usually sleeps on the side position with witnessed snoring and awakenings from sleep several times. No nocturia. Positive history of sleep talking. No history of hypnogogical hallucinations, sleep paralysis, or cataplexy. DURING THE DAY/WAKE STATE: In the morning patient wake up tired, has episodes of irritability and depression.. [place] sleepiness scale is 10, which indicates sleepiness. Patient takes 1 nap at 1:30 PM. PAST MEDICAL HISTORY: Hypothyroidism, hyperlipidemia, breast cancer bilaterally. PAST SURGICAL HISTORY: Left mastectomy, right lumpectomy with radiation therapy, gastric sleeve surgery in 2020. MEDICATIONS: Atorvastatin 40 mg once a day, esitalopram 20 mg once a day, levothyroxine 88 g once a day. SOCIAL HISTORY: Negative for smoking, alcohol consumption occasional. Cannabis gummics one per week FAMILY HISTORY: Heart problems, hypertension, diabetes. REVIEW OF SYSTEMS: Snoring, multiple awakenings from sleep. No fevers. No double vision. No recent chest pain. No shortness of breath. No abdominal pain. No bleeding episodes. No blood in urine. No seizure episodes. PHYSICAL EXAMINATION: GENERAL: A pleasant patient without any distress. VITAL SIGNS: BP 147/93, HR 70, RR 12, weight 187.6 pounds, height 5 foot 1.5 inches, body mass index 35.1. HEENT: PERRLA, EOMI. Evaluation of oropharynx showed tongue protrudes midline, low position of soft palate Mallampati 4. NECK: Supple. No JVD. Thyroid is not palpable. 15 inches in circumference. LUNGS: Clear to percussion and to auscultation. Good air exchange. No wheezing or rhonchi. HEART: S1, S2 regular. No murmurs, gallops or rubs. ABDOMEN: Soft and nontender. Bowel sounds are present. No organomegaly apprec iated. EXTREMITIES: No clubbing or cyanosis. PURCHASING OFFICER: Awake, alert, and oriented x3. Cranial nerves 2 to 7 intact. There is no fasciculation or atrophy noted. No focal deficits observed. ASSESSMENT: 1. Snoring, awakenings from sleep, extremely low position of soft palate Mallampati 4, sleepiness [place] Sleepiness Scale is 10. Obstructive sleep apnea hypopnea syndrome. 2. Difficulties to initiate sleep. Psychophysiological insomnia. 3. Mild obesity, BMI 35.1. 4. Hypothyroidism. 5 hyperlipidemia. 6 . History of bilateral breast cancer treated with mastectomy on the left and with lumpectomy and radiation on the right. 7. Status post gastric sleeve in 2020. Patient lost 30 pounds after surgery. PLAN: 1. Polysomnography for evaluation of patient's breathing during sleep. 2. CPAP/BiPAP titration if sleep study confirms obstructive sleep apnea- hypopnea syndrome. 3. Preferable position during sleep on the side. 4. No driving if patient feels any sleepiness. Patient is aware of civil and criminal liability for unsafe driving. 5. Sleep hygiene with regular sleep time for at least 7.5-8 hours. 6. Watching and losing weight. 7. I discussed with patient psychological techniques for treatment of insomnia including stimulus control, paradoxical intentioned, worry time, no watching clock at night. Thank you very much for referring this patient for consultation. Sincerely, Andrea Coyle MD, PhD, FAASM. Diplomat of [place] [employer], Sleep Medicine Board by [place] [employer] [place] [employer] Cryptologic Support Specialist of [facility] [place] Past Medical History Past Medical History: Cancer, GERD/Reflux, Hyperlipidemia, Hypertension, Osteoa rthritis (OA), Thyroid Disorder Additional Past Medical History / Comment(s): nolan breast cancer(chemo and radiation-1999) radiation 2017, Hx colon polyps, diverticulosis., pt states current high protein diet per Dr. Mccoy's instructions. History of Any Multi-Drug Resistant Organisms: None Reported Past Surgical History: Bariatric Surgery, Breast Surgery, Hysterectomy, Orthopedic Surgery Additional Past Surgical History / Comment(s): lt mastectomy with reconstruction; rt breast lumpectomy 2017; breast reconstructive surgery-trans flap, rt knee arthroscopy, balloon inserted in stomach for wt loss-later removed, nolan cataracts. gastric sleeve apr 2021 Past Anesthesia/Blood Transfusion Reactions: No Reported Reaction Additional Past Anesthesia/Blood Transfusion Reaction / Comment(s): mother had diff time coming out Past Psychological History: Anxiety Smoking Status: Never smoker Past Alcohol Use History: Rare Past Drug Use History: None Reported Additional Drug Use History / Comment(s): topical CBD ointment - Past Family History Daughter(s) Family Medical History: Cancer Additional Family Medical History / Comment(s): BREAST CANCER Brother(s) Family Medical History: No Reported History Mother Family Medical History: Cancer Additional Family Medical History / Comment(s): breast cancer Father Family Medical History: Cancer Additional Family Medical History / Comment(s): skin and liver cancer Medications and Allergies Home Medications Medication Instructions Recorded Confirmed Type Atorvastatin [Lipitor] 40 mg PO QAM 12/18/17 08/29/22 History Levothyroxine Sodium [Synthroid] 88 mcg PO QAM 11/16/19 08/29/22 History Escitalopram [Lexapro] 10 mg PO QAM 01/09/21 08/29/22 History Acetaminophen Tab [Tylenol] 1,000 mg PO Q6HR PRN #30 tablet 05/10/21 08/29/22 Rx Exemestane [Aromasin] 25 mg PO DAILY 11/06/21 08/29/22 History Calcium Carbonate [Calcium] 600 mg PO DAILY 02/21/22 08/29/22 History Cyanocobalamin (Vitamin B-12) 1,000 mcg PO DAILY 05/30/22 08/29/22 History [Vitamin B-12] Pregabalin [Lyrica] 50 mg PO BID 05/30/22 08/29/22 History Unk Multi Vitamin 1 tab PO DAILY 05/30/22 08/29/22 History Pregabalin [Lyrica] 50 mg PO DAILY 08/29/22 08/29/22 History Allergies Allergy/AdvReac Type Severity Reaction Status Date / Time No Known Allergies Allergy Verified 08/29/22 13:16 Sleep Note - Sleep Note Sleep Note: Temperature: Pulse Rate: Respiratory Rate: Blood Pressure: SpO2: Height: Weight: BMI: Neck Circumference:
== END | disposition home or self-care (01) ==
LOC: SLEEP 10:54
PROVIDERS: ATTEND Internal Medicine
DX: R06.83 Snoring (principal); G47.00 Insomnia, unspecified; E03.9 Hypothyroidism, unspecified; E78.5 Hyperlipidemia, unspecified; K21.9 Gastro-esophageal reflux disease without esophagitis; F41.9 Anxiety disorder, unspecified; E66.9 Obesity, unspecified; M19.90 Unspecified osteoarthritis, unspecified site; Z68.35 Body mass index [BMI] 35.0-35.9, adult; Z98.890 Other specified postprocedural states; Z98.84 Bariatric surgery status; Z85.3 Personal history of malignant neoplasm of breast; Z90.13 Acquired absence of bilateral breasts and nipples; Z80.3 Family history of malignant neoplasm of breast; Z82.49 Family history of ischemic heart disease and other diseases of the circulatory system; Z83.3 Family history of diabetes mellitus
CPT/HCPCS: 99211

== ENCOUNTER 2022-12-08 19:25 | Outpatient (CLI) | payer MEDICARE | END 2022-12-09 23:59 | LOC: 3 N SLEEP 19:25 → EDSTATUS 19:30 → 3 N SLEEP 12-09 05:40 | PROVIDERS: ATTEND Internal Medicine | DX: G47.33 Obstructive sleep apnea (adult) (pediatric) (principal) | CPT/HCPCS: 95810 ==

== ENCOUNTER → 2023-03-11 | Outpatient (CLI) | payer MEDICARE ==
--- NOTE | 2023-03-11 11:18 | P.PN ---
Subjective DATE: 03/11/2023 FOLLOW UP VISIT. Patient with obstructive sleep apnea hypopnea syndrome return to sleep center for follow-up visit. Recently patient had sleep study which documented obstructive sleep apnea hypopnea syndrome. Patient was initiated on PAP therapy and today is first visit after treatment was started. I discuss results of sleep studies with patient in details. Patient was able to use PAP equipment every night for the whole night. The patient does not have significant problems with the mask, PAP pressure and humidification. Patient improved he'll of alertness after starting to use CPAP. [place] sleepiness scale is 7, which is reduced from 10 before patient started to use CPAP equipment.. I checked information from PAP unit. PAP unit pressure 5-14, average 9.4 cm H2O. Usage is 93% and 83 % for more then 4 hours, average 5.75 hours per night. Leak is 22.1 l/m, which is in acceptable range. Apnea Hypopnea Index is 0.9, which is normal. MEDICATIONS:1. Atorvastatin 40 mg once a day 2. Levothyroxine 88 g once a day 3. Escitalopram 20 mg once a day During physical exam: GENERAL: A pleasant patient without any distress. VITAL SIGNS: BP 135/86, HR 61, RR 18, weight 196.4, temperature 98.0, oxygen saturation at room air 95%. HEENT: PERRLA, EOMI.low position of soft palate, Mallapati 4 . NECK: Supple. No JVD. LUNGS: Clear to percussion and to auscultation. Good air exchange. No wheezing or rhonchi. HEART: S1, S2 regular. ABDOMEN: Soft and nontender. Slightly obese EXTREMITIES: No clubbing or cyanosis. INSTRUMENTATION CHEMIST: Awake, alert, and oriented x3. No focal deficit. Impressions: 1. Obstructive sleep apnea-hypopnea syndrome. Patient demonstrated great compliance with treatment, benefiting from treatment. 2. Mild obesity, patient increased his weight on 9 pounds since previous visit. 3. Hypothyroidism. 4. Hyperlipidemia. 5. Status post gastric sleeve and 2020. 6. History of bilateral breast cancer treated by mastectomy on the left and to lumpectomy and radiation on the right. Plan: 1. Continue using PAP equipment every night for the whole night. 2. To change air filter at least 1-2 times per month. 3. PAP unit should stay lower then position of the head. 4. Advised patient to remove all remaining water from humidifier canister daily and make it dry after each usage. Refill canister with fresh distilled water before each usage. 5. Sleep hygiene with regular time in bed for at least 8 hours. 6. Precautions related to driving. No driving if feel any sleepiness. 7. I will maintain prescription for PAP supplies including mask, tube, filters. 8. Follow up visit in 6 months or earlier if patient has any problems. 9. Watching and losing weight. Thank you very much for allowing me to participate in the management of your patient. Andrea Coyle MD, PhD, FAASM. Diplomat of [place] [employer], Sleep Medicine Board by [place] [employer] [facility] Director of [facility] [place]
== END ==
LOC: 3 N SLEEP 10:47
PROVIDERS: ATTEND Internal Medicine
DX: G47.33 Obstructive sleep apnea (adult) (pediatric) (principal); E66.9 Obesity, unspecified; E03.9 Hypothyroidism, unspecified; E78.5 Hyperlipidemia, unspecified; Z79.890 Hormone replacement therapy; Z79.899 Other long term (current) drug therapy; Z85.3 Personal history of malignant neoplasm of breast; Z90.12 Acquired absence of left breast and nipple; Z98.84 Bariatric surgery status; Z99.89 Dependence on other enabling machines and devices
CPT/HCPCS: 99212

== ENCOUNTER → 2023-08-27 | Outpatient (CLI) | payer MEDICARE ==
--- NOTE | 2023-08-27 11:26 | MM ---
Reason for Exam: Hx of breast cancer, mastectomy. Last screening mammogram was performed 12 month(s) ago. Patient History: Menarche at age 11. First Full-Term at age 19. Hysterectomy at age 43. Postmenopausal. Breast cancer, bilateral, age 63. Other cancer. Estrogen for 1 year from age 54 until age 55. Patient used Hormonal Contraceptives for 15 years. 2002, Reduction on the Right side. 1995, Reduction on the Right side. 1995, Mastectomy on the Left side. 01/12/2018, Malignant Core Biopsy on the right side. 12/25/2017, Malignant Core Biopsy on the right side. 03/06/2010, Benign Core Biopsy on the right side. 2017, Radiation Therapy on the right side. 2001, TRAM Reconstruction on the left side. Radiation Therapy, left. Chemotherapy. Paternal aunt had breast cancer, age 63. Daughter had breast cancer, age 41. Mother had breast cancer, age 63. Prior Study Comparison: 02/11/2021 Right Diagnostic Mammogram, [facility]. 08/15/2021 Right Diagnostic Mammogram, [facility]. 08/26/2022 Bilateral MG 3D screening mammo w/cad, [facility]. Tissue Density: Right: There are scattered fibroglandular densities. Findings: Analyzed By CAD. Postsurgical and posttreatment change right breast. Scattered vascular and coarse calcifications remain unchanged. Biozorb device also noted. The adjacent postsurgical scar remains unchanged. No significant change from prior exams. Overall Assessment: Benign, BI-RAD 2 Management: Screening Mammogram of the right breast in 1 year. . Results were given to the patient verbally at the time of exam. Patient should continue monthly self-breast exams. A clinical breast exam by your physician is recommended on an annual basis. This exam should not preclude additional follow-up of suspicious palpable abnormalities. Electronically signed and approved by: Fernando Carrasco M.D. Radiologist
== END | disposition home or self-care (01) ==
LOC: RADMAMWWP 10:53
PROVIDERS: ATTEND Surgery
DX: R92.321 Mammographic fibroglandular density, right breast (principal); Z78.0 Asymptomatic menopausal state; Z80.3 Family history of malignant neoplasm of breast; Z90.12 Acquired absence of left breast and nipple; Z85.3 Personal history of malignant neoplasm of breast
CPT/HCPCS: 77065; G0279; 77061

== ENCOUNTER → 2023-08-27 | Outpatient (CLI) | payer MEDICARE ==
--- NOTE | 2023-08-27 12:11 | P.PN ---
Subjective Progress Note Date: 08/27/23 Principal diagnosis: bilateral breast cancer bilateral breast cancer Bilateral breast; cancer/left mastectomy 1995 with TRAM flap reconstruction in 2007; right breast cancer stage IA breast lumpectomy 2017 Bilateral breast cancer Stage IA right breast cancer treated December 2017 Rosey is a 68-year-old female who is status post left mastectomy with TRAM flap reconstruction performed in 2007. She did receive adjuvant chemotherapy and chest wall radiation. In November 2017 a 7 mm lesion was noted in the right breast 3 cm from the nipple in the upper outer quadrant. An ultrasound was performed which revealed that this was a 0.8 cm solid lesion at 11:00. Core biopsy was performed which was consistent with invasive ductal carcinoma. She subsequently underwent a lumpectomy with sentinel node biopsy on . Final pathology revealed a 6 mm focus of invasive ductal carcinoma grade 2 with negative margins. 5 total lymph node nodes were sampled all of which were negative. The patient received whole breast radiation and finished this in February 2018. She tolerated this with only mild skin irritation. The patient was started on letrazole, after which she initially had several urinary tract infections but this has not happened recently. She was complaining of hand and knee pain, she had a right knee replacement October. She is also complaining of a metallic taste in her mouth since she started the letrazole. She has recently been taken off this to see if this improves under the direction of DR. Bourgeois, she is now on exemestane and is tolerating this without difficulty. The most recent lesion was a stage IA [id number] ER/MA positive and HER-2 negative grade 1 invasive ductal carcinoma The patient had a 42-year-old daughter diagnosed with breast cancer she was told was stage III disease and she was treated with chemotherapy and radiation ther apy. 08-27-[address] Bourgeois 08-20-22 reviewed; at this time she has stopped the Aromasin as per Dr. Bourgeois's guidance she was last seen by him about two months ago A right breast mammogram was performed on . This was benign BIRADS 2. Patient is not complaining of any new lumps masses or nodules of concern in her breast nor on her chest wall. Her daughter is doing well at this time. Family history: 1. Mother: Breast cancer 2. father: Liver and skin cancer 3. Daughter: Breast cancer 4. Paternal aunt: Breast cancer 5. Maternal grandfather stomach cancer Patient had genetic testing and told no genetic risk, she saw a genetic counselor. Past surgical history: 1. Left breast mastectomy with TRAM flap reconstruction in 2002 2. Right breast lumpectomy and sentinel node biopsy 3. Partial hysterectomy 4. torn knee meniscus; right knee replacement 5. gastric sleeve; lost 27 pounds done in April 2021 Medical history: 1. hypothyroid 2. reflux Social history: Smoke: Negative Alcohol: Negative Drugs: Negative Review of systems: Constitutional: Negative HEENT: Wears glasses Lungs: Negative Cardiac: Hypertension GI: Negative : Partial hysterectomy Musculoskeletal: right knee arthritis Psych: negative hematologiic: none Allergies: Seasonal ALLERGIES Objective - Vital Signs Vital signs: Vital Signs Temp 98.2 F 08/27/23 11:54 Pulse 57 L 08/27/23 11:54 Resp 15 08/27/23 11:54 BP 147/86 08/27/23 11:54 Pulse Ox 97 08/27/23 11:54 FiO2 Intake & Output 08/26/23 08/27/23 08/27/23 18:59 06:59 18:59 Weight 87.09 kg - Constitutional General appearance: Present: cooperative - EENT Eyes: Present: EOMI ENT: Present: hearing grossly normal - Neck Neck: Present: normal ROM - Respiratory Respiratory: bilateral: CTA - Cardiovascular Heart sounds: normal: S1, S2 - Integumentary Integumentary: Present: normal turgor - Musculoskeletal Musculoskeletal: Present: gait normal - Psychiatric Psychiatric: Present: A&O x's 3, appropriate affect, intact judgment & insight - Additional findings Additional findings: Breast Exam; BRA: 40B Inspection: Postop changes bilaterally in the breast, well-healed scars from prior surgery left breast reconstruction with a tram flap Palpation: Right breast: Multi-positional exam robins pattern reduction mammoplasty incisions noted well-healed, no dominant masses or nodules of concern Right axilla: No adenopathy of concern Left breast: Reconstructive breast No evidence of recurrent cancer Left axilla: No adenopathy of concern Assessment and Plan Assessment: Impression: Patient status post left breast mastectomy with reconstruction no evidence of recurrent cancer Patient status post right breast lumpectomy/radiation therapy no evidence of recurrent cancer Recent right breast mammogram benign; 08-27-23 BIRAD 2 stopped aromasin Plan: Continue following with Dr. Bourgeois Repeat right breast mammogram in 1 year Follow-up examination Dr. Bourgeois in 6 months, follow here in 1 year CC: Dr. Luther Veloz
[2023-08-27 12:12] VITALS: BP 147/86; PULSE 57; RESP 15; TEMP 98.2
== END ==
LOC: WWCWWP 11:00
PROVIDERS: ATTEND Surgery
DX: C50.911 Malignant neoplasm of unspecified site of right female breast (principal); C50.912 Malignant neoplasm of unspecified site of left female breast; E03.9 Hypothyroidism, unspecified; K21.9 Gastro-esophageal reflux disease without esophagitis; Z17.0 Estrogen receptor positive status [ER+]; Z80.3 Family history of malignant neoplasm of breast; Z87.440 Personal history of urinary (tract) infections; Z98.890 Other specified postprocedural states; Z79.890 Hormone replacement therapy

== ENCOUNTER → 2023-10-08 | Outpatient (CLI) | payer MEDICARE ==
[2023-10-08 11:33] VITALS: BP 123/77; PULSE 74; RESP 16; TEMP 98.2
--- NOTE | 2023-10-08 12:06 | P.PN ---
Subjective DATE: 10/08/2023 FOLLOW UP VISIT. Patient with obstructive sleep apnea hypopnea syndrome return to sleep center for follow-up visit. Information from previous visit have been reviewed. Patient is using PAP equipment every night for the whole night, getting PAP supplies in time. Sometimes patient has episodes of dryness in the mouth. The patient does not have significant problems with the mask, PAP unit and humidification. [place] sleepiness scale is 6, which is in normal range. I checked information from PAP unit. PAP unit pressure 5-11, average 10.0 cm H2O. Usage is 80% and 73% for more then 4 hours, average 6.25 hours per night. Leak is increased to 32.3 l/m. Apnea Hypopnea Index is 0.9, which is normal. MEDICATIONS:1. Atorvastatin 40 mg once a day 2. Levothyroxine 88 mcg once a day 3. Lexapro 20 mg once a day During physical exam: GENERAL: A pleasant patient without any distress. VITAL SIGNS: Please see below, weight 192 pounds, patient lost 4 pounds comparing with previous visit. HEENT: PERRLA, EOMI.low position of soft palate, Mallapati 4 . NECK: Supple. No JVD. LUNGS: Clear to percussion and to auscultation. Good air exchange. No wheezing or rhonchi. HEART: S1, S2 regular. ABDOMEN: Soft and nontender.[] EXTREMITIES: No clubbing or cyanosis. MILITARY POLICE OFFICER: Awake, alert, and oriented x3. No focal deficit. I discussed with the patient how to adjust humidity level and temperature in the tube and temperature in the tube was increased to 80 degree and humidity level was increased to 4, previously was at level 3. Impressions: 1. Obstructive sleep apnea-hypopnea syndrome in mild range. Patient demonstrated good compliance with treatment. 2. Hypothyroidism. 3. Mild obesity, BMI 36.6, patient lost 4 pounds comparing with previous visit. 4. Hyperlipidemia. 5. Status post gastric sleeve in 2020. 6. History of bilateral breast cancer treated by mastectomy on the left side and lumpectomy and radiation on the right side. Plan: 1. Continue using PAP equipment every night for the whole night. We may consider to change full facemask to nasal mask. 2. To change air filter at least 1-2 times per month. 3. PAP unit should stay lower then position of the head. 4. Advised patient to remove all remaining water from humidifier canister daily and make it dry after each usage. Refill canister with fresh distilled water before each usage. 5. Sleep hygiene with regular time in bed for at least 8 hours. 6. Precautions related to driving. No driving if feel any sleepiness. 7. I will maintain prescription for PAP supplies including mask, tube, filters. 8. Follow up visit in 6 months or earlier if patient has any problems. 9. Watching weight. Thank you very much for allowing me to participate in the management of your patient. Andrea Coyle MD, PhD, FAASM. Diplomat of [place] Board of Sleep Medicine, Sleep Medicine Board by [place] Board of Internal Medicine Forest Technician of [facility] [place] Objective - Vital Signs Vital signs: Vital Signs Temp 98.2 F 10/08/23 10:57 Pulse 74 10/08/23 10:57 Resp 16 10/08/23 10:57 BP 123/77 10/08/23 10:57 Pulse Ox 96 10/08/23 10:57 FiO2 Intake & Output 10/07/23 10/08/23 10/08/23 18:59 06:59 18:59 Weight 87.09 kg
== END ==
LOC: 3 N SLEEP 10:41
PROVIDERS: ATTEND Internal Medicine
DX: G47.33 Obstructive sleep apnea (adult) (pediatric) (principal); E03.9 Hypothyroidism, unspecified; E66.9 Obesity, unspecified; E78.5 Hyperlipidemia, unspecified; Z68.36 Body mass index [BMI] 36.0-36.9, adult; Z98.84 Bariatric surgery status; Z85.3 Personal history of malignant neoplasm of breast; Z90.12 Acquired absence of left breast and nipple; Z79.890 Hormone replacement therapy; Z79.899 Other long term (current) drug therapy; Z99.89 Dependence on other enabling machines and devices
CPT/HCPCS: 99212

== ENCOUNTER → 2024-07-27 | Outpatient (CLI) | payer MEDICARE ==
[2024-07-27 16:33] VITALS: BP 147/87; PULSE 66; RESP 16; TEMP 97.6; BMI 29.2
--- NOTE | 2024-07-27 17:00 | P.HPBAR ---
Bariatric H&P - History & Physicial H&P Date: 07/27/24 History & Physicial: Visit/CC: F/u Patient initial contact: Initial weight: 94.489 kg Initial weight in pounds: 208.31 Height: 5 ft 1 in Initial BMI: 39.3 Last weight: Current weight: 70.307 kg Current weight in pounds: 155.00 Current BMI: 29.2 Calvert body weight (based on NIH guidelines): 47.627 kg Excess body weight loss: 51.6% The patient is a 69 year-old F who presents for Bariatric Assessment.55 DATE: 07/27/24 CHIEF COMPLAINT: Morbid obesity HISTORY OF PRESENT ILLNESS: Charisse James is a 69-year-old female status post sleeve gastrectomy 05/10/2021. She is 4 years out. She has been lost to follow up 3 years. She is down from 209 to 155 pounds. She has reports epigastric pain for over with 2 months. She presents with worsening abdominal pain. She presents in consultation for abdominal pain. She has pre-existing history of a from her TRAM flap. At height of 5 feet 1 inches, her ideal body weight is 131 pounds. Her highest weight was 215 pounds, body mass index 40.7. She comes in 155 pounds from 208 p ounds, in 4 years. Her body mass index is down from 39.4 to 29.3. She is 24 pounds overweight. PAST MEDICAL HISTORY: 1. Morbid obesity due to excess calories 2. Body mass index of 40.7, initial 3. Osteoarthritis of the knees. 4. Hypertensive heart disease. 5. Gastroesophageal reflux disease 6. Breast Cancer 7. Anxiety disorder 8. Hyperlipidemia 9. Depressive disorder 10. Hypothyroidism PAST SURGICAL HISTORY: 1. Left breast reconstruction, TRAM flap 2. Gastric balloon 3. Incisional hernia 4. Right breast lumpectomy 5. Right knee replacement 6. Bilateral cataract extraction 7. Partial hysterectomy 8. Status post sleeve gastrectomy HOME MEDICATIONS: Home Medications Medication Instructions Recorded Confirmed Atorvastatin [Lipitor] 40 mg PO QAM 12/18/17 07/27/24 Levothyroxine Sodium [Synthroid] 88 mcg PO QAM 11/16/19 07/27/24 Calcium Carbonate [Calcium] 600 mg PO DAILY 02/21/22 07/27/24 Unk Multi Vitamin 1 tab PO DAILY 05/30/22 07/27/24 Tirzepatide [Mounjaro] 10 mg SQ WEEKLY 07/27/24 07/27/24 Previous Rx's Medication Instructions Recorded Acetaminophen Tab [Tylenol] 1,000 mg PO Q6HR PRN #30 tablet 05/10/21 ALLERGIES: Allergies Allergy/AdvReac Type Severity Reaction Status Date / Time No Known Allergies Allergy Verified 07/27/24 16:25 SOCIAL HISTORY: Denies past tobacco use. FAMILY HISTORY: No family history of ulcerative colitis disease or Crohn's disease. Family history of morbid obesity. No lupus in the family. Her grandfather had stomach cancer on her motherside. She has family history of obesity with her mother having weight problems and most of her family. Her sister had the gastric sleeve and is doing well. REVIEW OF ORGAN SYSTEMS: CONSTITUTIONAL: At height of 5 feet 1 inches, her ideal body weight is 131 pounds. Her highest weight was 215 pounds, body mass index 40.7. She comes in 208 pounds. Her body mass index is 39.4. She is 77 pounds overweight. HEENT: Denies any active troubles with vision or hearing. Denies troubles with swallowing. ENDOCRINE: Denies diabetes. Has hypothyroidism. CARDIOVASCULAR: Denies palpitations or heart attacks or chest pain. Has hypertensive heart disease. RESPIRATORY: Denies asthma. Denies chronic obstructive pulmonary disease. GASTROINTESTINAL: Denies any bright red blood per rectum. No diarrhea. No constipation. Has gastroesophageal reflux disease. GENITOURINARY: No recent blood in urine MUSCULOSKELETAL: Has lower back pain and joint pain. Has osteoarthritis of the knees. NEURO: No headaches. No seizure disorders PSYCH: Has depression. No suicidal ideation. Has anxiety. RHEUMATOLOGIC: No lupus. No rheumatoid arthritis. HEMATOLOGIC: Denies any abnormal bleeding or bruising. Denies history of DVTs. SKIN: No rash. No skin cancer. PHYSICAL EXAM: VITAL SIGNS: Height 5 foot 1 inches, weight 155 pounds. BMI 29.3 Vital Signs Temp 97.6 F 07/27/24 16:25 Pulse 66 07/27/24 16:25 Resp 16 07/27/24 16:25 BP 147/87 07/27/24 16:25 Pulse Ox FiO2 GENERAL: Well-developed in no acute distress. HEENT: No scleral icterus. Extraocular movements grossly intact. Hears conversational speech. No nasal drainage. NECK: Supple without lymphadenopathy. CHEST: Nonlabored respirations with equal bilateral excursions. CARDIOVASCULAR: Regular rate and regular rhythm. Distal 2+ pulses. ABDOMEN: Obese, soft, nontender, nondistended. MUSCULOSKELETAL: No clubbing, cyanosis. NEURO: No focal or lateralizing signs. Cranial nerves 2 through 12 grossly within normal limits. PSYCH: Appropriate affect. Alert and oriented to person, place and time. SKIN: Good skin turgor. Well perfused. COLON FINDINGS: Aronchick preparation quality scale 1 (1-5) Internal hemorrhoids, grade 2 External hemorrhoids, grade 2. No arteriovenous malformations. Sigmoid diverticulosis Removal of 2 polyps: - Cold forceps biopsy at mid transverse colon 2, 3 to 5 mm polyps. No focal colitis. RECOMMENDATIONS: Repeat colonoscopy for 5 years, 2026 ASSESSMENT: 1. Morbid obesity due to excess calories 2. Body mass index of 40.7 to 29.3 3. Osteoarthritis of the knees. 4. Hypertensive heart disease. 5. Gastroesophageal reflux disease 6. Breast Cancer 7. Anxiety disorder 8. Hyperlipidemia 9. Depressive disorder 10. Status post sleeve gastrectomy PLAN: 1. Recommend bariatric labs. 2. Recommend upper endoscopy for further assessment of hiatal hernia 3. Recommend ultrasound of the gallbladder for gallstones due to epigastric abdominal pain 4. She is on Mounjaro which place her at risk for abdominal pain. Past Medical History Past Medical History: Cancer, GERD/Reflux, Hyperlipidemia, Hypertension, Osteoarthritis (OA), Thyroid Disorder Additional Past Medical History / Comment(s): nolan breast cancer(chemo and radiation-1999) radiation 2018, Hx colon polyps, diverticulosis., pt states current high protein diet per Dr. Mccoy's instructions. History of Any Multi-Drug Resistant Organisms: None Reported Past Surgical History: Bariatric Surgery, Breast Surgery, Hysterectomy, Orthopedic Surgery Additional Past Surgical History / Comment(s): lt mastectomy with reconstru ction; rt breast lumpectomy 2017; breast reconstructive surgery-trans flap, rt knee arthroscopy, balloon inserted in stomach for wt loss-later removed, nolan cataracts. gastric sleeve apr 2021 Past Anesthesia/Blood Transfusion Reactions: No Reported Reaction Additional Past Anesthesia/Blood Transfusion Reaction / Comm: mother had diff time coming out Past Psychological History: Anxiety Smoking Status: Never smoker Past Alcohol Use History: Rare Past Drug Use History: None Reported Additional Drug Use History / Comment(s): topical CBD ointment - Past Family History Daughter(s) Family Medical History: Cancer Additional Family Medical History / Comment(s): BREAST CANCER Brother(s) Family Medical History: No Reported History Mother Family Medical History: Cancer Additional Family Medical History / Comment(s): breast cancer Father Family Medical History: Cancer Additional Family Medical History / Comment(s): skin and liver cancer Surgical - Exam Vital Signs Temp Pulse Resp BP 97.6 F 66 16 147/87 07/27/24 16:25 07/27/24 16:25 07/27/24 16:25 07/27/24 16:25 Bariatric Checklist Checklist: Plan: Checklist: EGD: 1. Hiatal hernia: 2. H. Pylori: HgbA1c: Vitamin D: Smoking: Never smoker Primary care physician referral: Dr. Maria Teresa Veloz Psychiatry clearance: Cardiology clearance: Sleep study: Diet journal: VTE risk score: VTE risk level: Rehab needs at discharge:
== END ==
LOC: BARWHC3 15:25
PROVIDERS: ATTEND Surgery Plastic and Reconstructive Surgery
DX: E66.01 Morbid (severe) obesity due to excess calories (principal); M17.11 Unilateral primary osteoarthritis, right knee; M17.12 Unilateral primary osteoarthritis, left knee; I11.9 Hypertensive heart disease without heart failure; K21.9 Gastro-esophageal reflux disease without esophagitis; C50.919 Malignant neoplasm of unspecified site of unspecified female breast; E78.5 Hyperlipidemia, unspecified; F32.A Depression, unspecified; F41.9 Anxiety disorder, unspecified; Z68.41 Body mass index [BMI] 40.0-44.9, adult; Z90.3 Acquired absence of stomach [part of]
CPT/HCPCS: 99211

== ENCOUNTER → 2024-07-28 | Outpatient (CLI) | payer MEDICARE ==
[2024-07-28 13:10] LABS: Partial Thromboplastin Time 23.2 sec (22.0-30.0); Prothrombin Time 11.3 sec (10.0-12.5)
[2024-07-28 18:43] LABS: HCT 44.9 % (37.2-46.3); HGB 14.7 g/dL (12.0-15.0); MCH 31.4 pg (27.0-32.0); MCHC 32.7 g/dL (32.0-37.0); MCV 95.9 FL (80.0-97.0); Mean Platelet Volume 12.1 FL (9.5-12.2); NRBC Per 100 WBC 0 X 10*3/uL (0.00-0.01); Platelet Count 191 X 10*3/uL (140-440); RBC 4.68 X 10*6/uL (4.10-5.20); RDW 13.2 % (11.5-14.5); WBC 3.66 X 10*3/uL (4.50-10.00)
[2024-07-28 20:03] LABS: % Iron Saturation 29.07 (12.00-45.00); ALT 21 U/L (8-44); AST 25 U/L (13-35); Albumin 4.5 g/dL (3.8-4.9); Albumin/Globulin Ratio 1.96 Ratio (1.60-3.17); Alkaline Phosphatase 98 U/L (41-126); BUN/Creat Ratio 15.14 Ratio (12.00-20.00); Blood Urea Nitrogen 10.6 mg/dL (9.0-27.0); Calcium 9.7 mg/dL (8.7-10.3); Carbon Dioxide 24.1 mmol/L (21.6-31.8); Chloride 106 mmol/L (96-109); Chol/HDL Ratio 2.68 Ratio; Globulin 2.3 g/dL (1.6-3.3); Glucose 87 mg/dL (70-110); Iron 100 UG/DL (50-170); LDL Cholesterol,Calculated 82.4 mg/dL (0.0-131.0); Magnesium 1.9 mg/dL (1.5-2.4); Phosphorus 3.4 mg/dL (2.4-5.1); Potassium 4.4 mmol/L (3.5-5.5); Sodium 143 mmol/L (135-145); Total Bilirubin 0.6 mg/dL (0.3-1.2); Total Iron Binding Capacity 344 UG/DL (228-460); Total Protein 6.8 g/dL (6.2-8.2)
[2024-07-28 20:28] LABS: Prealbumin 18.5 mg/dL (18.0-42.0)
[2024-07-29 12:14] LABS: Zinc, Serum 79 ug/dL (60-130)
== END | disposition home or self-care (01) ==
LOC: LABWHC1 12:09
PROVIDERS: ATTEND Surgery Plastic and Reconstructive Surgery
DX: E55.9 Vitamin D deficiency, unspecified (principal); E45 Retarded development following protein-calorie malnutrition; E44.0 Moderate protein-calorie malnutrition; E89.1 Postprocedural hypoinsulinemia; D50.8 Other iron deficiency anemias; D50.9 Iron deficiency anemia, unspecified; K74.1 Hepatic sclerosis; N19 Unspecified kidney failure; K50.90 Crohn's disease, unspecified, without complications; T56.894A Toxic effect of other metals, undetermined, initial encounter
CPT/HCPCS: 36415; 80053; 80061; 82306; 82525; 82607; 82728; 82746; 83036; 83540; 83550; 83735; 83970; 84100; 84134; 84255; 84425; 84443; 84590; 84630; 85027; 85610; 85730

== ENCOUNTER → 2024-08-29 | Outpatient (CLI) | payer MEDICARE ==
--- NOTE | 2024-08-29 13:48 | MM ---
Reason for Exam: Hx of breast cancer, mastectomy. Last mammogram was performed 1 year(s) and 1 month(s) ago. Patient History: Menarche at age 11. First Full-Term at age 19. Hysterectomy at age 43. Postmenopausal. Breast cancer, right, age 63. Breast cancer, left, age 29. Estrogen for 1 year from age 54 until age 55. Patient used Hormonal Contraceptives for 15 years. 2002, Reduction on the Right side. 1995, Reduction on the Right side. 1995, Mastectomy on the Left side. 01/12/2018, Malignant Core Biopsy on the right side. 12/25/2017, Malignant Core Biopsy on the right side. 03/06/2010, Benign Core Biopsy on the right side. 2017, Radiation Therapy on the right side. 2001, TRAM Reconstruction on the left side. Radiation Therapy, left. Chemotherapy. Paternal aunt had breast cancer, age 63. Daughter had breast cancer, age 41. Mother had breast cancer, age 63. Prior Study Comparison: 08/15/2021 Right Diagnostic Mammogram, [facility]. 08/26/2022 Bilateral MG 3D screening mammo w/cad, [facility]. 08/27/2023 Right MG 3D diag mammo w/cad RT, [facility]. Tissue Density: Right: There are scattered areas of fibroglandular density. Findings: Analyzed By CAD. Postsurgical and posttreatment changes redemonstrated right breast. Biozorb device again demonstrated upper outer quadrant. 4 groups of either heterogeneous or punctate calcifications also redemonstrated unchanged. No significant change from prior exams. Overall Assessment: Benign, BI-RAD 2 Management: Screening Mammogram of the right breast in 1 year. Results were given to the patient verbally at the time of exam. Patient should continue monthly self-breast exams. A clinical breast exam by your physician is recommended on an annual basis. This exam should not preclude additional follow-up of suspicious palpable abnormalities. [facility], , 08/29/2024 1:45 PM. Electronically signed and approved by: Fernando Carrasco M.D. Radiologist
== END | disposition home or self-care (01) ==
LOC: RADMAMWWP 12:54
PROVIDERS: ATTEND Surgery
DX: R92.321 Mammographic fibroglandular density, right breast (principal); Z85.3 Personal history of malignant neoplasm of breast; Z80.3 Family history of malignant neoplasm of breast; Z78.0 Asymptomatic menopausal state; Z92.0 Personal history of contraception; Z98.890 Other specified postprocedural states
CPT/HCPCS: 77061; 77065

== ENCOUNTER → 2024-08-30 | Outpatient (CLI) | payer MEDICARE ==
--- NOTE | 2024-08-30 15:10 | NM ---
EXAMINATION TYPE: NM hepatobiliary w EF DATE OF EXAM: 08/30/2024 3:01 PM COMPARISON: 08/08/2024 CLINICAL INDICATION:Female, 69 years old with history of R10.13 EPIGASTRIC PAIN; TECHNIQUE: The patient was given 4.8 mCi of Technetium 99m-Mebrofenin as a radiotracer and multiple scintigraphic images were obtained of the abdomen. Gallbladder function was also assessed after the a dministration ensure drink and additional scintigraphic images were obtained of the abdomen. A region of interest was drawn over the gallbladder and a timing activity curve was generated. The gallbladde r ejection fraction was calculated. FINDINGS: Normal uptake of radiotracer was identified within the liver with excretion into the hepatic and comm on biliary ducts within 4 min. There was normal progressive washout of the liver over the course of t he study. Radiotracer uptake within the gallbladder at 4 minutes as well as small bowel activity was identified. Maximum calculated gallbladder ejection fraction is: 96% at 30 minutes (Normal gallbladder ejection fraction is > 35%) IMPRESSION: 1. Normal hepatobiliary scan. 2. Normal ejection fraction. [facility], , 08/30/2024 3:08 PM
== END | disposition home or self-care (01) ==
LOC: RADNMMAIN 07:00
PROVIDERS: ATTEND Surgery Plastic and Reconstructive Surgery
DX: R10.13 Epigastric pain (principal)
CPT/HCPCS: 78226; A9537

== ENCOUNTER → 2024-09-01 | Outpatient (CLI) | payer MEDICARE ==
[2024-09-01 10:01] VITALS: BP 126/75; PULSE 68; RESP 16; TEMP 98.1
--- NOTE | 2024-09-01 10:36 | P.PN ---
Subjective Progress Note Date: 09/01/24 09-01-24 Principal diagnosis: bilateral breast cancer Bilateral breast; cancer/left mastectomy 1995 with TRAM flap reconstruction in 2007; right breast cancer stage IA breast lumpectomy 2017 Stage IA right breast cancer treated December 2017 Rosey is a 69-year-old female who is status post left mastectomy with TRAM flap reconstruction performed in 2007. She did receive adjuvant chemotherapy and chest wall radiation. In November 2017 a 7 mm lesion was noted in the right breast 3 cm from the nipple in the upper outer quadrant. An ultrasound was performed which revealed that this was a 0.8 cm solid lesion at 11:00. Core biopsy was performed which was consistent with invasive ductal carcinoma. She subsequently underwent a lumpectomy with sentinel node biopsy on . Final pathology revealed a 6 mm focus of invasive ductal carcinoma grade 2 with negative margins. 5 total lymph node nodes were sampled all of which were negative. The patient received whole breast radiation and finished this in February 2018. She tolerated this with only mild skin irritation. The patient was started on letrazole, after which she initially had several urinary tract infections but this has not happened recently. She was complaining of hand and knee pain, she had a right knee replacement October. She is also complaining of a metallic taste in her mouth since she started the letrazole. She has recently been taken off this to see if this improves under the direction of DR. Bourgeois, she is now on exemestane and is not taking any of these at this time. She is not seeing Dr. Bourgeois at this time. The most recent lesion was a stage IA [id number] ER/TX positive and HER-2 negative grade 1 invasive ductal carcinoma The patient had a 42-year-old daughter diagnosed with breast cancer she was told was stage III disease and she was treated with chemotherapy and radiation the rapy. not following with Dr. Bourgeois at this time, last seen over a year ago stoped AI A right breast mammogram was performed on 08-29-34. This was benign BIRADS 2. Patient is not complaining of any new lumps masses or nodules of concern in her breast nor on her chest wall. Her daughter is doing well at this time. Family history: 1. Mother: Breast cancer 2. father: Liver and skin cancer 3. Daughter: Breast cancer 4. Paternal aunt: Breast cancer 5. Maternal grandfather stomach cancer Patient had genetic testing and told no genetic risk, she saw a genetic counselor. Past surgical history: 1. Left breast mastectomy with TRAM flap reconstruction in 2002 2. Right breast lumpectomy and sentinel node biopsy 3. Partial hysterectomy 4. torn knee meniscus; right knee replacement 5. gastric sleeve; lost 27 pounds done in April 2021 Medical history: 1. hypothyroid 2. reflux Social history: Smoke: Negative Alcohol: Negative Drugs: Negative Review of systems: Constitutional: Negative HEENT: Wears glasses Lungs: Negative Cardiac: Hypertension GI: Negative : Partial hysterectomy Musculoskeletal: right knee arthritis Psych: negative hematologiic: none Allergies: Seasonal ALLERGIES Objective - Vital Signs Vital signs: Vital Signs Temp 98.1 F 09/01/24 09:59 Pulse 68 09/01/24 09:59 Resp 16 09/01/24 09:59 BP 126/75 09/01/24 09:59 Pulse Ox 100 09/01/24 09:59 FiO2 Intake & Output 08/31/24 09/01/24 09/01/24 18:59 06:59 18:59 Weight 66.678 kg - Constitutional General appearance: Present: cooperative - EENT Eyes: Present: EOMI ENT: Present: hearing grossly normal - Neck Neck: Present: normal ROM - Respiratory Respiratory: bilateral: CTA - Cardiovascular Rhythm: regular Heart sounds: normal: S1, S2 - Integumentary Integumentary: Present: normal turgor - Musculoskeletal Musculoskeletal: Present: gait normal - Psychiatric Psychiatric: Present: A&O x's 3, appropriate affect, intact judgment & insight - Additional findings Additional findings: Breast Exam; BRA: 40B Inspection: Postop changes bilaterally in the breast, well-healed scars from prior surgery left breast reconstruction with a tram flap Palpation: Right breast: Multi-positional exam robins pattern reduction mammoplasty incisions noted well-healed, nodule periareolar region laterally which is freely palpable most likely representing scar tissue other dominant masses or nodules of concern this is in the 10 o'clock position Right axilla: No adenopathy of concern Left breast: Reconstructive breast No evidence of recurrent cancer Left axilla: No adenopathy of concern Assessment and Plan Assessment: Impression: Patient status post left breast mastectomy with reconstruction no evidence of recurrent cancer Patient status post right breast lumpectomy/radiation therapy nodule 10 o'clock position periareolar region Recent right breast mammogram benign; 08-29-24 BIRAD 2 stopped aromatase inhibitors, is no longer following with Dr. Bourgeois Plan: excision of palpable mass right breast will shcedule after trip to [place] Repeat right breast mammogram in 1 year CC: Dr. Luther Veloz
== END ==
LOC: WWCWWP 09:52
PROVIDERS: ATTEND Surgery
DX: Z12.31 Encounter for screening mammogram for malignant neoplasm of breast (principal); Z80.3 Family history of malignant neoplasm of breast; Z85.3 Personal history of malignant neoplasm of breast; Z90.13 Acquired absence of bilateral breasts and nipples

== ENCOUNTER → 2024-11-04 | Outpatient (CLI) | payer MEDICARE ==
[2024-11-04 08:41] VITALS: BP 120/77; PULSE 58; RESP 17; TEMP 97.7
--- NOTE | 2024-11-04 09:11 | P.BCPN ---
Subjective Progress Note Date: 11/04/24 Principal diagnosis: mass right breast/history of bilateral breast cancer 11-04-24 Principal diagnosis: bilateral breast cancer Bilateral breast; cancer/left mastectomy 1995 with TRAM flap reconstruction in 2007; right breast cancer stage IA breast lumpectomy 2017 Stage IA right breast cancer treated December 2017 Rosey is a 69-year-old female who is status post left mastectomy with TRAM flap reconstruction performed in 2007. She did receive adjuvant chemotherapy and chest wall radiation. In November 2017 a 7 mm lesion was noted in the right breast 3 cm from the nipple in the upper outer quadrant. An ultrasound was performed which revealed that this was a 0.8 cm solid lesion at 11:00. Core biopsy was performed which was consistent with invasive ductal carcinoma. She subsequently underwent a lumpectomy with sentinel node biopsy on . Final pathology revealed a 6 mm focus of invasive ductal carcinoma grade 2 with negative margins. 5 total lymph node nodes were sampled all of which were negative. The patient received whole breast radiation and finished this in February 2018. She tolerated this with only mild skin irritation. The patient was started on letrazole, after which she initially had several urinary tract infections but this has not happened recently. She was complaining of hand and knee pain, she had a right knee replacement October. She is also complaining of a metallic taste in her mouth since she started the letrazole. She has recently been taken off this to see if this improves under the direction of DR. Bourgeois, she is now on exemestane and is not taking any of these at this time. She is not seeing Dr. Bourgeois at this time. The most recent lesion was a stage IA [id number] ER/CT positive and HER-2 negative grade 1 invasive ductal carcinoma The patient had a 42-year-old daughter diagnosed with breast cancer she was told was stage III disease and she was treated with chemotherapy and radiation therapy. not following with Dr. Bourgeois at this time, last seen over a year ago stoped AI A right breast mammogram was performed on 08-29-24. This was benign BIRADS 2. Patient is not complaining of any new lumps masses or nodules of concern in her breast nor on her chest wall. Her daughter is doing well at this time. Family history: 1. Mother: Breast cancer 2. father: Liver and skin cancer 3. Daughter: Breast cancer 4. Paternal aunt: Breast cancer 5. Maternal grandfather stomach cancer Patient had genetic testing and told no genetic risk, she saw a genetic counselor. Past surgical history: 1. Left breast mastectomy with TRAM flap reconstruction in 2002 2. Right breast lumpectomy and sentinel node biopsy 3. Partial hysterectomy 4. torn knee meniscus; right knee replacement 5. gastric sleeve; lost 27 pounds done in April 2021 Medical history: 1. hypothyroid 2. reflux Social history: Smoke: Negative Alcohol: Negative Drugs: Negative Review of systems: Constitutional: Negative HEENT: Wears glasses Lungs: Negative Cardiac: Hypertension GI: Negative : Partial hysterectomy Musculoskeletal: right knee arthritis Psych: negative hematologiic: none Allergies: Seasonal ALLERGIES Objective - Vital Signs Vital Signs: Vital Signs Temp 97.7 F 11/04/24 08:35 Pulse 58 L 11/04/24 08:35 Resp 17 11/04/24 08:35 BP 120/77 11/04/24 08:35 Pulse Ox 100 11/04/24 08:35 FiO2 Intake & Output 11/03/24 11/04/24 11/04/24 18:59 06:59 18:59 Weight 65.771 kg - Constitutional General appearance: Present: cooperative - EENT Eyes: Present: EOMI ENT: Present: hearing grossly normal - Neck Neck: Present: normal ROM - Breast Breast-Narrative: Breast Exam; BRA: 40B Inspection: Postop changes bilaterally in the breast, well-healed scars from prior surgery left breast reconstruction with a tram flap Palpation: Right breast: Multi-positional exam robins pattern reduction mammoplasty incisions noted well-healed, nodule periareolar region laterally which is freely palpable most likely representing scar tissue no other dominant masses or nodules of concern this is in the 10 o'clock position Right axilla: No adenopathy of concern Left breast: Reconstructive breast No evidence of recurrent cancer Left axilla: No adenopathy of concern Ptosis: Grade 2: Right Breast Ptosis, Left Breast Ptosis (reconstructed with a tram flap and nipple tattoo) Breast: right: mass (mass lateral aspect of breast at 10:00) Right Breast Palpation (Multi-positional): Other Left Breast Palpation (Multi-positional): No dominant masses, Other (status post reconstruction and mastectomy) Right Axilla Palpation: No adenopathy of concern Left Axilla Palpation: No adenopathy of concern - Respiratory Respiratory: bilateral: CTA - Cardiovascular Rhythm: regular Heart sounds: normal: S1, S2 - Gastrointestinal General gastrointestinal: Present: soft - Integumentary Integumentary: Present: normal turgor - Musculoskeletal Musculoskeletal: Present: gait normal - Psychiatric Psychiatric: Present: A&O x's 3, appropriate affect, intact judgment & insight Assessment and Plan Plan: Impression: Patient status post left breast mastectomy with reconstruction no evidence of recurrent cancer Patient status post right breast lumpectomy/radiation therapy nodule 10 o'clock position periareolar region Recent right breast mammogram benign; 08-29-24 BIRAD 2 stopped aromatase inhibitors, is no longer following with Dr. Bourgeois Plan: excision of palpable mass right breast Repeat right breast mammogram in 1 year Consent: I have discussed the risks, benefits and alternative therapies for the above-mentioned procedure and for both sedation/analgesia as well as necessary blood product administration, if indicated, as they pertain to this patient. The patient has indicated understanding and acceptance of the risks and procedures discussed. CC: Dr. Luther Veloz Prep Education Provided - Preoperative Education Given Pre-Op Kit Given Date: 11/04/24 - Functional Assessment Performed?: Yes (arm abduction passed) - Smoking Cessation Education Provided?: No (non-smoker)
== END ==
LOC: WWCWWP 08:27
PROVIDERS: ATTEND Surgery
DX: N63.10 Unspecified lump in the right breast, unspecified quadrant (principal); Z90.12 Acquired absence of left breast and nipple; Z98.890 Other specified postprocedural states; Z92.3 Personal history of irradiation

== ENCOUNTER 2024-11-08 07:16 | Day surgery (SDC) | payer MEDICARE ==
[~2024-11-08 07:16] MED LIST changes: +HYDROmorphone 0.5 MG/0.5 ML SYRINGE IVP PRN; -LACTATED RINGERS 1,000 ML IV SCH; -LIDOCAINE 1% (10MG/ML) FOR IV START INTRADERMA PRN
[2024-11-08 07:54] VITALS: RESP 16; TEMP 97.7
[2024-11-08] MEDS: IV FLUID CONTINUATION 1,000 ML IV ONE (07:54)
[2024-11-08] MEDS: LACTATED RINGERS 1,000 ML IV SCH (08:18)
[2024-11-08] MEDS: ONDANSETRON 4 MG/2 ML VIAL IVP ONE (08:18)
[2024-11-08] MEDS: LIDOCAINE 1% (10MG/ML) FOR IV START INTRADERMA PRN (08:18)
[2024-11-08] MEDS: DEXAMETHASONE SOD PHOSPHATE 4 MG/ML 1 ML VIAL IV ONE (08:18)
[2024-11-08] MEDS: ACETAMINOPHEN TAB 500 MG TAB PO PRN (08:19)
[2024-11-08] MEDS: HEPARIN SODIUM,PORCINE 5,000 UNIT/ML 1 ML VIAL SQ PRN (08:20)
[2024-11-08 08:24] LABS: Glucose,Whole Blood 80 mg/dL (70-110)
[2024-11-08] MEDS ORDERED: LIDOCAINE 1% INJ 10MG/ML (20 ML MDV) ONE (08:30)
[2024-11-08] MEDS ORDERED: PHENYLEPHRINE-0.9% NACL SYG 1,000 MCG/10 ML SYRINGE ONE (08:30)
[2024-11-08] MEDS ORDERED: PROPOFOL 10 MG/ML 20 ML VIAL IV ONE (08:30)
[2024-11-08] MEDS ORDERED: MIDAZOLAM 2 MG/2 ML VIAL ONE (08:30)
[2024-11-08] MEDS ORDERED: fentaNYL (PF) 50 MCG/ML 2 ML AMP ONE (08:30)
[2024-11-08] MEDS: ceFAZolin 2 GM in DEXTROSE 5% IN WATER 50 ML IVPB PRN (08:35)
[2024-11-08] MEDS: LIDOCAINE 1% INJ 10MG/ML (20 ML MDV) SQ ONE ×2 (08:56)
--- NOTE | 2024-11-08 09:30 | P.BCAON ---
Date of Procedure: 11/08/24 Preoperative Diagnosis: Palpable mass right breast Postoperative Diagnosis: Same Procedure(s) Performed: Excision palpable mass right breast Anesthesia: MAC Surgeon: Amrita Moser Estimated Blood Loss (ml): 2 Pathology: other (Mass right breast) Condition: stable Disposition: same day Indications for Procedure: Prior history of breast cancer with new palpable mass right breast Operative Findings: Probable cyst right breast Description of Procedure: The patient was brought to the operative suite. Following induction of anesthesia the right breast was prepped and draped in the sterile fashion. In the periareolar region at approximately 10:00 there was a palpable mass. The area was anesthetized using 1% lidocaine. The patient had sedation. An elliptical incision including the area of the skin was performed. The lesion itself was superficial and felt to be approximately 4 x 3 mm in size. It was completely excised. It appeared to have a cystic component to it. Following this the wound was evaluated for hemostasis. The electrocautery was used to obtain hemostasis. The deep tissues were closed using 3-0 Vicryl suture. The skin was closed using 4-0 Monocryl. 10 cc 0f 1% lidocaine total this included the local to remove the lesion,was injected into the area of the incision. The patient tolerated the procedure in stable condition. All instrument and sponge counts were correct at the end of the case.
[2024-11-08 09:32] VITALS: BP 118/81; PULSE 58
== END 2024-11-08 09:54 | disposition home or self-care (01) ==
LOC: OR 07:16
PROVIDERS: ATTEND Surgery
DX: N60.31 Fibrosclerosis of right breast (principal); N64.81 Ptosis of breast; I10 Essential (primary) hypertension; E78.5 Hyperlipidemia, unspecified; E03.9 Hypothyroidism, unspecified; K21.9 Gastro-esophageal reflux disease without esophagitis; E66.01 Morbid (severe) obesity due to excess calories; Z68.28 Body mass index [BMI] 28.0-28.9, adult; Z79.890 Hormone replacement therapy; Z79.85 Long-term (current) use of injectable non-insulin antidiabetic drugs; Z79.899 Other long term (current) drug therapy; Z85.3 Personal history of malignant neoplasm of breast; Z90.12 Acquired absence of left breast and nipple; Z98.84 Bariatric surgery status; Z80.3 Family history of malignant neoplasm of breast
CPT/HCPCS: 19120; 88304; J2250; J1644; J1100; J0690; J2405; J2003; J3010; J2704; J2371